=== PATIENT | male | born 1980 | race Caucasian/White ===

== ENCOUNTER 2017-07-11 11:25 | Emergency (ER) | payer MEDICARE, MEDICAID ==
[~2017-07-11] VITALS: Ht 6038.7 cm; Wt 120.0 kg
[~2017-07-11 11:25] MED LIST: FENO135C3 PO; LAMO200T32 PO; LISI30TA39 PO; PRAV10TA38 PO; TRAZ-91 PO; VAL5T PO; ZIPR40CA2 PO; ZIPR80CA2 PO; [UNRECOGNIZED DRUG - CODE] PO
[2017-07-11 12:17] VITALS: BP 137/95
[2017-07-11] MEDS ORDERED: NEOM10DR45 OT (13:52)
== END 2017-07-11 14:00 | disposition home or self-care (01) ==
LOC: ER 11:26
DX: H72.91 Unspecified perforation of tympanic membrane, right ear (principal); E78.00 Pure hypercholesterolemia, unspecified; I10 Essential (primary) hypertension; F17.200 Nicotine dependence, unspecified, uncomplicated; Z79.899 Other long term (current) drug therapy
CPT/HCPCS: 99283

== ENCOUNTER 2018-07-16 10:42 | Emergency (ER) | payer MEDICARE, MEDICAID ==
[~2018-07-16] VITALS: Ht 182.9 cm; Wt 100.0 kg
[2018-07-16] MEDS ORDERED: haloperidol lactate 5mg/ml inj IM ONE (11:30)
[2018-07-16] MEDS ORDERED: LORazepam 2 mg/ml vial IM ONE (11:30)
[2018-07-16] MEDS ORDERED: diphenhydrAMINE 50 mg/ml inj IM ONE (11:30)
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
[2018-07-16 11:59] LABS: BASOPHILS % (AUTO) 0.3 % (0-1); EOSINOPHILS % (AUTO) 0.5 % (0-6); HEMATOCRIT 38.7 % (42.0-52.0); HEMOGLOBIN 13.4 g/dl (14.0-17.9); LYMPHOCYTES # (AUTO) 1.9 X10'3 (1.1-4.8); LYMPHOCYTES % (AUTO) 26.6 % (21-51); MEAN CORPUSCULAR HEMOGLOBIN 29.6 PG (27.0-31.0); MEAN CORPUSCULAR HGB CONC 34.6 g/dL (33.0-36.5); MEAN CORPUSCULAR VOLUME 85.5 FL (78-98); MEAN PLATELET VOLUME 7.4 FL (7.4-10.4); MONOCYTES # (AUTO) 0.4 X10'3 (0-0.9); NEUTROPHILS # (AUTO) 4.7 X10'3 (1.8-7.7); NEUTROPHILS % (AUTO) 66.6 % (42-75); PLATELET COUNT 187 X10'3 (140-440); RED BLOOD COUNT 4.53 X10'6 (4.70-6.10); RED CELL DISTRIBUTION WIDTH 13.3 % (11.5-14.5); WHITE BLOOD COUNT 7.1 X10'3 (4.5-11.0)
[2018-07-16 12:14] LABS: URINE AMPHETAMINE SCREEN NEGATIVE (Neg); URINE BARBITUATE SCREEN NEGATIVE (Neg); URINE BENZODIAZEPINES SCREEN NEGATIVE (Neg); URINE CANNABINOID SCREEN POSITIVE (Neg); URINE COCAINE SCREEN NEGATIVE (Neg); URINE METHADONE SCREEN NEGATIVE (Neg); URINE OPIATE SCREEN NEGATIVE (Neg); URINE PHENCYCLIDINE SCREEN NEGATIVE (Neg)
[2018-07-16 12:22] LABS: ALANINE AMINOTRANSFERASE 26 U/L (12-78); ALBUMIN 4.4 G/DL (3.4-5.0); ALBUMIN/GLOBULIN RATIO 1.5 (1.1-1.5); ALKALINE PHOSPHATASE 39 IU/L (46-116); ANION GAP 10 (8-16); ASPARTATE AMINO TRANSFERASE 20 U/L (10-37); BILIRUBIN,TOTAL 0.7 MG/DL (0.1-1.0); BLOOD UREA NITROGEN 9 MG/DL (7-18); CALCIUM 9.1 MG/DL (8.5-10.1); CHLORIDE 100 MMOL/L (99-107); CREATININE 0.82 MG/DL (0.60-1.10); ETHANOL < 0.010 GM/DL (0.0-0.010); GLUCOSE 138 MG/DL (70-104); POTASSIUM 3.7 MMOL/L (3.5-5.1); SODIUM 136 MMOL/L (135-145); TOTAL CARBON DIOXIDE 26.1 MMOL/L (24-32); TOTAL PROTEIN 7.3 G/DL (6.4-8.2); eGFR > 90 ML/MIN
--- NOTE | 2018-07-16 12:36 | NUR ---
PT'S PARENTS ARRIVE TO TALK TO DR SIBLEY AND RN. PT HAD BEEN PICKED UP EARLY THIS MORNING BY [facility] AND TAKEN TO [facility] ON A 5150 DUE TO NEIGHBORS CALLING THAT HE WAS HALF NAKED AND LAYING OUT ON THE STREETS. PER PARENTS HE HAS BEEN HAVING ERRATIC BEHAVIORS AND HAS MADE SUICIDAL STATEMENTS. PT HAS BEEN HOSPITALIZED IN THE PAST. THEY FEEL HIS IS A DANGER TO HIMSELF. THEY DO HAVE POA.
--- NOTE | 2018-07-16 12:41 | NUR ---
PER PTS MOM HE HAS ALREADY HAD HIS MORNING MEDICATIONS.
[2018-07-16] MEDS ORDERED: ATOR20TA PO (12:55)
[2018-07-16] MEDS ORDERED: LAMO25TA94 PO (13:11)
[2018-07-16] MEDS ORDERED: GABA-530 PO (13:11)
[2018-07-16] MEDS ORDERED: GABA600T13 PO (13:11)
[2018-07-16] MEDS ORDERED: VARE0.5T PO (13:11)
[2018-07-16] MEDS ORDERED: CARI6CAP PO (13:11)
[2018-07-16] MEDS ORDERED: ATI0.5T PO (13:11)
[2018-07-16] MEDS ORDERED: LISI-600 PO (13:11)
[2018-07-16] MEDS ORDERED: BENZ1TAB7 PO (13:11)
[2018-07-16] MEDS ORDERED: LAMO100T2 PO (13:11)
[2018-07-16] MEDS ORDERED: FENO135C PO (13:11)
[2018-07-16] MEDS ORDERED: BUPR1FIL17 SL (13:11)
[2018-07-16] MEDS ORDERED: DULO-31 PO (13:11)
--- NOTE | 2018-07-16 14:11 | NUR ---
PACKET FAXED TO [facility]
--- NOTE | 2018-07-16 15:54 | NUR ---
JESSICA FROM [facility] HAS PLACED PT ON A 5150. PER JESSICA SHE HAS INFORMED HIM AND HE IS AWARE THAT HE WILL BE STAYING. PT HAS BEEN COOPERATIVE.
--- NOTE | 2018-07-16 20:00 | NUR ---
The patient has been sleeping on his bed. He awakened briefly for an assessment. He currently denies being suicidal. He denies significant drug or ETOH use. He stated he lives with a pet care worker, Roxanne and feels comfortable living there. He stated that currently is mood is "good" He stated that he has noticed some mood changes during the day but was not more specific. Per his parents his behavior has been erratic and he has been making suicidal statements but he denies that currently.
[2018-07-16] MEDS: varenicline tartrate 0.5mg tablet PO SCH (20:43)
[2018-07-16] MEDS: benztropine 1mg tablet PO SCH (20:43)
[2018-07-16] MEDS: buprenorphine/naloxone 2-0.5mg sublingual tablet SL SCH (20:43)
[2018-07-16] MEDS: gabapentin 300mg capsule PO SCH (20:43)
[2018-07-16] MEDS: lamoTRIgine 100mg tablet PO SCH (20:43)
--- NOTE | 2018-07-16 21:19 | NUR ---
Patients contacted and they brought in his home medication, Vraylar. The medication was sent to pharmacy for relabeling.
[2018-07-16] MEDS: CARIPRAZINE HYDROCHLORIDE 6 MG PO SCH (22:00)
--- NOTE | 2018-07-16 22:05 | NUR ---
The patient is resting on his bed. He was up briefly to use the restroom.
--- NOTE | 2018-07-17 00:47 | NUR ---
The patient appears to be sleeping
--- NOTE | 2018-07-17 04:27 | NUR ---
The patient appears to be asleep at this time.
--- NOTE | 2018-07-17 05:22 | NUR ---
The patient appears to be sleeping
[2018-07-17] MEDS: varenicline tartrate 0.5mg tablet PO SCH ×2 (08:00→20:00)
[2018-07-17] MEDS: lamoTRIgine 25mg tablet PO SCH (08:16)
[2018-07-17] MEDS: atorvastatin 20mg tablet PO SCH (08:18)
[2018-07-17] MEDS: lisinopril 20mg tablet PO SCH (08:18)
[2018-07-17] MEDS: fenofibrate 145mg tablet PO SCH (08:18)
[2018-07-17] MEDS: duloxetine 30mg CAPSULE.DR PO SCH (08:18)
[2018-07-17] MEDS: buprenorphine/naloxone 2-0.5mg sublingual tablet SL SCH ×2 (08:19→20:40)
[2018-07-17] MEDS: benztropine 1mg tablet PO SCH ×2 (08:19→20:40)
[2018-07-17] MEDS: gabapentin 100mg capsule PO SCH (08:19)
--- NOTE | 2018-07-17 10:00 | NUR ---
Patient lying in bed, eyes closed.
--- NOTE | 2018-07-17 10:30 | NUR ---
Patient up to restroom.
[2018-07-17] MEDS: LORazepam 0.5 MG tablet PO PRN (12:51)
--- NOTE | 2018-07-17 13:00 | NUR ---
Patient sitting up in bed eating lunch
--- NOTE | 2018-07-17 15:00 | NUR ---
Patient lying in bed with eyes closed.
--- NOTE | 2018-07-17 16:36 | NUR ---
Mother of eder here for a visit, she stated that a patient requested sunglasses but was educated that he could not have them here.
[2018-07-17] MEDS: lamoTRIgine 100mg tablet PO SCH (20:39)
[2018-07-17] MEDS: gabapentin 300mg capsule PO SCH (20:40)
[2018-07-17] MEDS: CARIPRAZINE HYDROCHLORIDE 6 MG PO SCH (20:40)
--- NOTE | 2018-07-18 01:14 | NUR ---
Pt asleep on his back with no signs of distress. Will continue to monitor.
--- NOTE | 2018-07-18 06:56 | NUR ---
Pt. awake, questions re: plan. Informed pt. that he was on 07/16, and today is 07/18, so there is one more day on his hold. No determinations regarding placement have been made. Requesting coffee.
[2018-07-18] MEDS: lamoTRIgine 25mg tablet PO SCH (07:46)
[2018-07-18] MEDS: gabapentin 100mg capsule PO SCH (07:48)
[2018-07-18] MEDS: duloxetine 30mg CAPSULE.DR PO SCH (07:48)
[2018-07-18] MEDS: atorvastatin 20mg tablet PO SCH (07:48)
[2018-07-18] MEDS: benztropine 1mg tablet PO SCH (07:48)
[2018-07-18] MEDS: lisinopril 20mg tablet PO SCH (07:48)
[2018-07-18] MEDS: fenofibrate 145mg tablet PO SCH (07:49)
[2018-07-18] MEDS: buprenorphine/naloxone 2-0.5mg sublingual tablet SL SCH (07:49)
[2018-07-18] MEDS: varenicline tartrate 0.5mg tablet PO SCH (07:53)
--- NOTE | 2018-07-18 08:54 | NUR ---
Patient's father called and wanted to know what plan is for son when 5150 is up. Informed him that [facility] would be determining placement options. Father wants to know about Dr. Cardenas coming down to ER because he is a private pt. of Dr. Cardenas. Informed that Dr. Cardenas only sees pts at [facility], and [facility].
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
--- NOTE | 2018-07-18 13:15 | NUR ---
April from [facility] in [place] called for a preliminary nurse to nurse. She will present to and call back.
[2018-07-18] MEDS: LORazepam 0.5 MG tablet PO PRN (13:17)
--- NOTE | 2018-07-18 14:35 | NUR ---
Patient has been accepted to [facility], nurse to nurse given to ELVIA Augustin. [facility] will call back with transport details.
--- NOTE | 2018-07-18 14:55 | NUR ---
Content Administrator from [facility] will be here at approx. 16:00.
--- NOTE | 2018-07-18 15:19 | NUR ---
Mother and father at bedside.
[2018-07-18] MEDS ORDERED: LORazepam 1 MG tablet PO ONE (15:30)
--- NOTE | 2018-07-18 15:48 | NUR ---
Pt. requesting additional medication due to anxiety/agitation. Ativan 2 mg p.o. given prior to transport.
[2018-07-18 16:42] VITALS: BP 114/76
== END 2018-07-18 16:37 ==
LOC: ER 10:42
DX: F31.9 Bipolar disorder, unspecified (principal); F41.9 Anxiety disorder, unspecified; F20.9 Schizophrenia, unspecified; I10 Essential (primary) hypertension; E78.00 Pure hypercholesterolemia, unspecified; F17.200 Nicotine dependence, unspecified, uncomplicated; F12.90 Cannabis use, unspecified, uncomplicated; Z88.1 Allergy status to other antibiotic agents
CPT/HCPCS: 36415; 80053; 80305; 80320; 85025; 99285

== ENCOUNTER 2018-08-01 15:07 | Emergency (ER) | payer MEDICARE, MEDICAID ==
[~2018-08-01] VITALS: Ht 185.4 cm; Wt 98.6 kg
[~2018-08-01 15:07] MED LIST changes: +ATI0.5T PO; +ATOR20TA PO; +BENZ1TAB7 PO; +BUPR1FIL17 SL; +CARI6CAP PO; +DULO-31 PO; +FENO135C PO; -FENO135C3 PO; +GABA-530 PO; +GABA600T13 PO; +LAMO100T2 PO; -LAMO200T32 PO; +LAMO25TA94 PO; +LISI-600 PO; -LISI30TA39 PO; -PRAV10TA38 PO; -TRAZ-91 PO; -VAL5T PO; +VARE0.5T PO; -ZIPR40CA2 PO; -ZIPR80CA2 PO; -[UNRECOGNIZED DRUG - CODE] PO
--- NOTE | 2018-08-01 15:58 | NUR ---
Trudi Monreal (Mk' mother) [phone]
[2018-08-01 16:15] LABS: URINE AMPHETAMINE SCREEN NEGATIVE (Neg); URINE BARBITUATE SCREEN NEGATIVE (Neg); URINE BENZODIAZEPINES SCREEN NEGATIVE (Neg); URINE CANNABINOID SCREEN POSITIVE (Neg); URINE COCAINE SCREEN NEGATIVE (Neg); URINE METHADONE SCREEN NEGATIVE (Neg); URINE OPIATE SCREEN NEGATIVE (Neg); URINE PHENCYCLIDINE SCREEN NEGATIVE (Neg)
[2018-08-01 16:16] LABS: BASOPHILS % (AUTO) 0.4 % (0-1); EOSINOPHILS # (AUTO) 0.1 X10'3 (0-0.9); EOSINOPHILS % (AUTO) 1.4 % (0-6); HEMATOCRIT 39.2 % (42.0-52.0); HEMOGLOBIN 13.4 g/dl (14.0-17.9); LYMPHOCYTES # (AUTO) 3.2 X10'3 (1.1-4.8); LYMPHOCYTES % (AUTO) 34.9 % (21-51); MEAN CORPUSCULAR HEMOGLOBIN 29.4 PG (27.0-31.0); MEAN CORPUSCULAR HGB CONC 34.3 g/dL (33.0-36.5); MEAN CORPUSCULAR VOLUME 85.7 FL (78-98); MONOCYTES # (AUTO) 0.6 X10'3 (0-0.9); MONOCYTES % (AUTO) 6.1 % (2-12); NEUTROPHILS # (AUTO) 5.3 X10'3 (1.8-7.7); NEUTROPHILS % (AUTO) 57.2 % (42-75); PLATELET COUNT 205 X10'3 (140-440); RED BLOOD COUNT 4.57 X10'6 (4.70-6.10); RED CELL DISTRIBUTION WIDTH 13.1 % (11.5-14.5); WHITE BLOOD COUNT 9.2 X10'3 (4.5-11.0)
[2018-08-01 17:01] LABS: ALANINE AMINOTRANSFERASE 35 U/L (12-78); ALBUMIN 4.2 G/DL (3.4-5.0); ALBUMIN/GLOBULIN RATIO 1.4 (1.1-1.5); ALKALINE PHOSPHATASE 46 IU/L (46-116); ANION GAP 6 (8-16); ASPARTATE AMINO TRANSFERASE 14 U/L (10-37); BILIRUBIN,TOTAL 0.3 MG/DL (0.1-1.0); BLOOD UREA NITROGEN 15 MG/DL (7-18); BUN/CREATININE RATIO 18.5 (5.4-32.0); CALCIUM 9.3 MG/DL (8.5-10.1); CHLORIDE 100 MMOL/L (99-107); CREATININE 0.81 MG/DL (0.60-1.10); ETHANOL < 0.010 GM/DL (0.0-0.010); GLUCOSE 112 MG/DL (70-104); SODIUM 134 MMOL/L (135-145); TOTAL CARBON DIOXIDE 28.4 MMOL/L (24-32); TOTAL PROTEIN 7.3 G/DL (6.4-8.2); eGFR > 90 ML/MIN
--- NOTE | 2018-08-01 17:09 | NUR ---
psychiatrist SHAINA Garcia made aware of patient, states he will see him tomorrow.
[2018-08-01] MEDS ORDERED: LURA120T PO (17:14)
[2018-08-01] MEDS: buprenorphine/naloxone 2-0.5mg sublingual tablet SL SCH (19:36)
[2018-08-01] MEDS ORDERED: NALOXONE HCL SL SCH (20:00)
[2018-08-01] MEDS ORDERED: [UNRECOGNIZED DRUG - OTHER] SL SCH (20:00)
[2018-08-01] MEDS ORDERED: BUPRENORPHINE HCL SL SCH (20:00)
[2018-08-01] MEDS ORDERED: Melatonin 3mg tablet PO SCH (21:00)
--- NOTE | 2018-08-01 21:07 | NUR ---
pt is sleeping, no s/s of distress.
--- NOTE | 2018-08-01 21:23 | NUR ---
pt reports being anxious and unable to sleep. consult with dr solis, verbal order for 3 mg melatonin.
[2018-08-01] MEDS: LORazepam 0.5 MG tablet PO PRN (21:29)
--- NOTE | 2018-08-01 21:57 | NUR ---
pt asked to use phone, but was informed that phone can be used between 8am and 8pm
--- NOTE | 2018-08-01 22:23 | NUR ---
pt is sleeping on back. no s/s of distress, will continue to monitor.
--- NOTE | 2018-08-02 00:13 | NUR ---
pt is sleeping. no s/s of distress, rr wnl.
--- NOTE | 2018-08-02 02:15 | NUR ---
pt appears to be asleep, lying on his back with arms folded. no s/s of distress noted, will continue to monitor.
[2018-08-02] MEDS ORDERED: nicotine 14mg patch - 24hr TD ONE (02:55)
--- NOTE | 2018-08-02 03:02 | NUR ---
pt requested a nicotine patch, reporting that he smokes approx 1/2-1 pack of cigarettes a day. consult with Dr Merino-verbal order for 14 mg nicotine patch one time.
--- NOTE | 2018-08-02 04:10 | NUR ---
pt lying in bed awake. no s/s of distress noted.
[2018-08-02 05:33] VITALS: BP_DIAS 68
--- NOTE | 2018-08-02 06:32 | NUR ---
Patient sleeping on right side. No restlessness observed. Continue to monitor.
[2018-08-02] MEDS ORDERED: lisinopril 20mg tablet PO SCH (08:00)
[2018-08-02] MEDS ORDERED: non-formulary drug (Lurasidone HCl (Latuda) 1 TAB) PO SCH (08:00)
[2018-08-02] MEDS ORDERED: atorvastatin 20mg tablet PO SCH (08:00)
[2018-08-02] MEDS ORDERED: non-formulary drug (Atorvastatin Calcium (Lipitor) 1 TAB) PO SCH (08:00)
[2018-08-02] MEDS ORDERED: lurasidone 60mg tablet PO SCH (08:00)
--- NOTE | 2018-08-02 08:05 | NUR ---
Patient eating breakfast. No distress observed. Continue to monitor.
[2018-08-02 08:18] VITALS: BP_SYST 104
[2018-08-02] MEDS: buprenorphine/naloxone 2-0.5mg sublingual tablet SL SCH (08:19)
--- NOTE | 2018-08-02 10:20 | NUR ---
Patient stating feeling a little anxious and requested his Ativan. Continue to monitor.
[2018-08-02] MEDS: LORazepam 0.5 MG tablet PO PRN (10:31)
--- NOTE | 2018-08-02 11:40 | NUR ---
Patient anxious and requesting a nicotine patch. Patient's parents at bedside. Continue to monitor.
[2018-08-02] MEDS ORDERED: nicotine 21mg patch - 24 hr TD ONE (11:45)
--- NOTE | 2018-08-02 12:00 | NUR ---
RN went to give patient his nicotine patch and patient refused because he said he was trying to sleep RN walked away and patient called RN back and stated he changed his mind. Patient is upset because he doesn't know why he is here. Patient earlier got agitated when RN asked why he was here and patient states his mother brought him in but he doesn't know why. Patient acting bizarre with his eyes wide open. RN gave patient his nicotine patch and recommended to patient to request RN to remove the patch tonight since patient stated he gets nightmares with the patch. Patient verbalized understanding. RN will also remind the nurse to remove the patch. Continue to monitor.
--- NOTE | 2018-08-02 14:05 | NUR ---
Patient sleeping. No distress observed. Continue to monitor.
--- NOTE | 2018-08-02 15:59 | NUR ---
Patient resting on right side. No distress observed. Continue to monitor.
== END 2018-08-02 16:40 ==
LOC: ER 15:08
DX: F20.9 Schizophrenia, unspecified (principal); F31.9 Bipolar disorder, unspecified; I10 Essential (primary) hypertension; E78.00 Pure hypercholesterolemia, unspecified; F12.90 Cannabis use, unspecified, uncomplicated; Z88.1 Allergy status to other antibiotic agents
CPT/HCPCS: 36415; 80053; 80305; 80320; 85025; 99285

== ENCOUNTER 2018-08-27 21:49 | Emergency (ER) | payer MEDICARE, MEDICAID ==
[~2018-08-27] VITALS: Ht 287 cm; Wt 109.0 kg
[~2018-08-27 21:49] MED LIST changes: -ATI0.5T PO; -BENZ1TAB7 PO; -CARI6CAP PO; +CLON0.5T12 PO; -DULO-31 PO; -FENO135C PO; -GABA-530 PO; -GABA600T13 PO; +HYDR-3686 PO; -LAMO100T2 PO; -LAMO25TA94 PO; +NICO-668 MM; +OLAN20TA34 PO; +OLAN5TAB26 PO; +OLAN7.5T9 PO; +TEMA15CA PO; -VARE0.5T PO
--- NOTE | 2018-08-27 22:14 | NUR ---
PARENTS, MAGI AND LUDWIG BARRERA, , PT TOOK ZYPREXA 20MG, SEROQUEL 300MG, TEGRETOL 100MG AND TEMAZEPAM 15MG AT APPROX 2030, PARENTS WENT HOME AND WILL RETURN IN AM
--- NOTE | 2018-08-27 23:04 | NUR ---
Patient was brought from ED by Ariana GAN and . He wasn triaged without difficult. He answered questions appropriately and cooperates. He is now resting and shows no sign of distress and states that he is feeling comfortable now.
[2018-08-27 23:17] LABS: URINE AMPHETAMINE SCREEN NEGATIVE (Neg); URINE BARBITUATE SCREEN NEGATIVE (Neg); URINE BENZODIAZEPINES SCREEN NEGATIVE (Neg); URINE CANNABINOID SCREEN NEGATIVE (Neg); URINE COCAINE SCREEN NEGATIVE (Neg); URINE METHADONE SCREEN NEGATIVE (Neg); URINE OPIATE SCREEN NEGATIVE (Neg); URINE PHENCYCLIDINE SCREEN NEGATIVE (Neg)
[2018-08-27 23:22] LABS: BASOPHILS % (AUTO) 0.4 % (0-1); EOSINOPHILS # (AUTO) 0.3 X10'3 (0-0.9); EOSINOPHILS % (AUTO) 5.1 % (0-6); HEMOGLOBIN 10.8 g/dl (14.0-17.9); LYMPHOCYTES # (AUTO) 2.6 X10'3 (1.1-4.8); LYMPHOCYTES % (AUTO) 41.9 % (21-51); MEAN CORPUSCULAR HEMOGLOBIN 29.6 PG (27.0-31.0); MEAN CORPUSCULAR HGB CONC 34.8 g/dL (33.0-36.5); MEAN CORPUSCULAR VOLUME 85.2 FL (78-98); MEAN PLATELET VOLUME 7.4 FL (7.4-10.4); MONOCYTES # (AUTO) 0.5 X10'3 (0-0.9); MONOCYTES % (AUTO) 7.9 % (2-12); NEUTROPHILS # (AUTO) 2.8 X10'3 (1.8-7.7); NEUTROPHILS % (AUTO) 44.7 % (42-75); PLATELET COUNT 181 X10'3 (140-440); RED BLOOD COUNT 3.64 X10'6 (4.70-6.10); RED CELL DISTRIBUTION WIDTH 12.8 % (11.5-14.5); WHITE BLOOD COUNT 6.2 X10'3 (4.5-11.0)
[2018-08-27 23:43] LABS: ALANINE AMINOTRANSFERASE 42 U/L (12-78); ALBUMIN 3.2 G/DL (3.4-5.0); ALBUMIN/GLOBULIN RATIO 1.1 (1.1-1.5); ALKALINE PHOSPHATASE 46 IU/L (46-116); ANION GAP 7 (8-16); ASPARTATE AMINO TRANSFERASE 19 U/L (10-37); BILIRUBIN,TOTAL 0.2 MG/DL (0.1-1.0); BLOOD UREA NITROGEN 16 MG/DL (7-18); BUN/CREATININE RATIO 22.2 (5.4-32.0); CALCIUM 8.5 MG/DL (8.5-10.1); CHLORIDE 103 MMOL/L (99-107); CREATININE 0.72 MG/DL (0.60-1.10); ETHANOL < 0.010 GM/DL (0.0-0.010); GLUCOSE 120 MG/DL (70-104); POTASSIUM 3.9 MMOL/L (3.5-5.1); SODIUM 138 MMOL/L (135-145); eGFR > 90 ML/MIN
--- NOTE | 2018-08-28 00:36 | NUR ---
Packet faxed to [facility]. Unable to confirm receipt of packet as [id number] hours.
--- NOTE | 2018-08-28 00:37 | NUR ---
Pt's belongings documented and placed in locked cabinet in ambulance bay.
--- NOTE | 2018-08-28 01:03 | NUR ---
Patient is resting.
--- NOTE | 2018-08-28 03:03 | NUR ---
Patient is resting well and there is no sign of change in condition.
--- NOTE | 2018-08-28 05:05 | NUR ---
Patient just went back to sleep . He woke up to void and there is no change in condition.
[2018-08-28] MEDS ORDERED: hydrOXYzine 25 MG tablet PO PRN (06:05)
[2018-08-28] MEDS ORDERED: temazepam 15mg capsule PO PRN (06:10)
--- NOTE | 2018-08-28 06:30 | NUR ---
Asleep upon change of shift observation. Undisturbed at this time. Color and breathing WNL.
[2018-08-28] MEDS ORDERED: OLANZapine 2.5MG tablet PO SCH (08:00)
[2018-08-28] MEDS ORDERED: clonazePAM 0.5mg tablet PO SCH (08:00)
[2018-08-28] MEDS ORDERED: buprenorphine/naloxone 2-0.5mg sublingual tablet SL SCH (08:00)
[2018-08-28] MEDS ORDERED: lisinopril 20mg tablet PO SCH (08:00)
[2018-08-28] MEDS ORDERED: nicotine 7mg patch - 24hr TD SCH (08:00)
[2018-08-28] MEDS ORDERED: atorvastatin 20mg tablet PO SCH (08:00)
--- NOTE | 2018-08-28 08:30 | NUR ---
Awakened for AM meds and breakfast. Patient presents as guarded. States only that "I don't need to be here. I want to go home."
--- NOTE | 2018-08-28 10:14 | NUR ---
patient restless most of the mornig, up and down out of bed and restroom.
--- NOTE | 2018-08-28 11:27 | NUR ---
patient cont' to be agitated looking to go home
--- NOTE | 2018-08-28 11:30 | NUR ---
Erica Jones from [facility] at bedside to evaluate patient for possible 5150 criteria.
--- NOTE | 2018-08-28 12:30 | NUR ---
Patient does not meet 5150 criteria. Free to go home per Erica Jones. Patient used phone to call mother.
--- NOTE | 2018-08-28 13:10 | NUR ---
Discharge Note: Mother here. Patient discharged to home with all his personal possessions. Will follow-up with DR. Cardenas the psychiatrist this coming . Ambulated out of ER accompanied by mother.
[2018-08-28 13:32] VITALS: BP 105/56
[2018-08-28] MEDS ORDERED: OLANZapine 5mg rapidly disint. tablet PO SCH (21:00)
== END 2018-08-28 13:10 | disposition home or self-care (01) ==
LOC: ER 21:49
DX: F29 Unspecified psychosis not due to a substance or known physiological condition (principal); I10 Essential (primary) hypertension; E78.00 Pure hypercholesterolemia, unspecified; F41.9 Anxiety disorder, unspecified; F31.9 Bipolar disorder, unspecified; F12.90 Cannabis use, unspecified, uncomplicated; F20.9 Schizophrenia, unspecified; Z98.890 Other specified postprocedural states; Z88.1 Allergy status to other antibiotic agents; Z79.899 Other long term (current) drug therapy
CPT/HCPCS: 36415; 80053; 80305; 80320; 85025; 99284

== ENCOUNTER 2018-10-29 13:22 | Emergency (ER) | payer MEDICARE, MEDICAID ==
[~2018-10-29] VITALS: Ht 182.9 cm; Wt 109.1 kg
[2018-10-29 14:22] LABS: CLARITY,URINE CLEAR (Clear); COLOR,URINE YELLOW (Yellow); GLUCOSE, URINE NEGATIVE (Neg); KETONES,URINE NEGATIVE (Neg); LEUKOCYTE ESTERASE ,URINE NEGATIVE (Neg); NITRITES, URINE NEGATIVE (Neg); OCCULT BLOOD,URINE NEGATIVE (Neg); PH,URINE 6.5 (4.8-8.0); PROTEIN,URINE NEGATIVE (Neg)
[2018-10-29 14:25] LABS: UA COLLECTION TYPE CLN CATCH MIDSTREAM
[2018-10-29 14:34] LABS: URINE AMPHETAMINE SCREEN NEGATIVE (Neg); URINE BARBITUATE SCREEN NEGATIVE (Neg); URINE BENZODIAZEPINES SCREEN NEGATIVE (Neg); URINE CANNABINOID SCREEN POSITIVE (Neg); URINE COCAINE SCREEN NEGATIVE (Neg); URINE METHADONE SCREEN NEGATIVE (Neg); URINE OPIATE SCREEN NEGATIVE (Neg); URINE PHENCYCLIDINE SCREEN NEGATIVE (Neg)
[2018-10-29] MEDS ORDERED: CARB200T PO (14:37)
[2018-10-29] MEDS ORDERED: RISP2TAB97 PO (14:37)
[2018-10-29] MEDS ORDERED: CLON-527 PO (14:37)
[2018-10-29] MEDS ORDERED: TEMA15CA PO (14:37)
[2018-10-29] MEDS ORDERED: HYDR-3686 PO (14:37)
[2018-10-29 15:05] LABS: BASOPHILS % (AUTO) 0.2 % (0-1); EOSINOPHILS # (AUTO) 0.2 X10'3 (0-0.9); HEMATOCRIT 40.6 % (42.0-52.0); HEMOGLOBIN 13.9 g/dl (14.0-17.9); LYMPHOCYTES # (AUTO) 2.4 X10'3 (1.1-4.8); MEAN CORPUSCULAR HGB CONC 34.3 g/dL (33.0-36.5); MEAN CORPUSCULAR VOLUME 87.6 FL (78-98); MEAN PLATELET VOLUME 8.2 FL (7.4-10.4); MONOCYTES # (AUTO) 0.5 X10'3 (0-0.9); MONOCYTES % (AUTO) 6.9 % (2-12); NEUTROPHILS # (AUTO) 4.8 X10'3 (1.8-7.7); NEUTROPHILS % (AUTO) 60.9 % (42-75); PLATELET COUNT 159 X10'3 (140-440); RED BLOOD COUNT 4.63 X10'6 (4.70-6.10); WHITE BLOOD COUNT 7.9 X10'3 (4.5-11.0)
[2018-10-29 15:15] LABS: ALANINE AMINOTRANSFERASE 46 U/L (12-78); ALBUMIN 4.1 G/DL (3.4-5.0); ALBUMIN/GLOBULIN RATIO 1.3 (1.1-1.5); ALKALINE PHOSPHATASE 55 IU/L (46-116); ANION GAP 10 (8-16); ASPARTATE AMINO TRANSFERASE 48 U/L (10-37); BILIRUBIN,TOTAL 0.3 MG/DL (0.1-1.0); BLOOD UREA NITROGEN 16 MG/DL (7-18); BUN/CREATININE RATIO 25.4 (5.4-32.0); CALCIUM 8.6 MG/DL (8.5-10.1); CHLORIDE 105 MMOL/L (99-107); CREATININE 0.63 MG/DL (0.60-1.10); GLUCOSE 83 MG/DL (70-104); POTASSIUM 3.7 MMOL/L (3.5-5.1); SODIUM 141 MMOL/L (135-145); TOTAL CARBON DIOXIDE 26.1 MMOL/L (24-32); TOTAL PROTEIN 7.2 G/DL (6.4-8.2); eGFR > 90 ML/MIN
[2018-10-29] MEDS: LORazepam 1 MG tablet PO PRN (15:16)
[2018-10-29 15:29] LABS: ETHANOL < 0.010 GM/DL (0.0-0.010)
--- NOTE | 2018-10-29 15:41 | NUR ---
PT MEDICAL CLEARED. PACKET FAXED TO [facility].
--- NOTE | 2018-10-29 15:48 | NUR ---
[id number] Tunde Garcia PA here to evaluate pt for mental health issues. Pt having anxiety at that time. Tunde Garcia gave prn order for pt to have ativan.
[2018-10-29] MEDS ORDERED: temazepam 15mg capsule PO PRN (16:30)
[2018-10-29] MEDS ORDERED: nicotine 21mg patch - 24 hr TD ONE (17:25)
[2018-10-29] MEDS: buprenorphine/naloxone 2-0.5mg sublingual tablet SL SCH (20:19)
[2018-10-29] MEDS: carBAMazepine 100mg chewable tablet PO SCH (20:19)
[2018-10-29] MEDS: risperiDONE 2mg tablet PO SCH (20:19)
--- NOTE | 2018-10-29 21:50 | NUR ---
Nicotine patch removed.
[2018-10-30] MEDS: risperiDONE 2mg tablet PO SCH ×2 (07:09→20:35)
--- NOTE | 2018-10-30 07:10 | NUR ---
Patient requested his medications for this morning. All medications given. Nicotine patch applied.
--- NOTE | 2018-10-30 07:11 | NUR ---
Patient has been up to use the restroom.
[2018-10-30] MEDS: lisinopril 20mg tablet PO SCH (07:12)
[2018-10-30] MEDS: nicotine 21mg patch - 24 hr TD SCH (07:12)
[2018-10-30] MEDS: atorvastatin 20mg tablet PO SCH (07:12)
[2018-10-30] MEDS: clonazePAM 1mg tablet PO SCH (07:12)
[2018-10-30] MEDS: buprenorphine/naloxone 2-0.5mg sublingual tablet SL SCH ×2 (07:23→20:36)
--- NOTE | 2018-10-30 11:25 | NUR ---
patients is awake, sitting quiety on the bed.
[2018-10-30] MEDS: hydrOXYzine 25 MG tablet PO PRN (11:33)
--- NOTE | 2018-10-30 12:21 | NUR ---
patient is laying on his right side, he appears to be asleep.
--- NOTE | 2018-10-30 12:23 | NUR ---
patient is laying on his right side, he appears to be sleeping.
--- NOTE | 2018-10-30 12:23 | NUR ---
left medications from home, documented and sent to pharmacy Addendum: 10/30/18 at 1223 by LEONILA wrong patient Void entry
--- NOTE | 2018-10-30 12:58 | NUR ---
Patient is sitting up in bed staring at the nurses station.
--- NOTE | 2018-10-30 13:02 | NUR ---
patient approached the nurses desk and asked when lunch will arrive. He was advised that it will arrive soon.
--- NOTE | 2018-10-30 13:18 | NUR ---
Patient got up to use the restroom and returned to his room to eat lunch.
--- NOTE | 2018-10-30 13:55 | NUR ---
pt on phone with his mother asking for a jacket because he's cold . jonnie informed pt not allowed personal belongings and she provided him a warm blanket. pt was ok with that
--- NOTE | 2018-10-30 18:33 | NUR ---
Patient resting cofortably in bed. Patient denies SI/HI at this time. When asked the reason for his visit he states that, "I just had a bad reaction to my medicine."
--- NOTE | 2018-10-30 18:34 | NUR ---
Patient updated on POC.
--- NOTE | 2018-10-30 18:41 | NUR ---
Patient states that he has removed his nicotine patch. Patient pulls patch out of pocket which is balled up. Patch placed in med waste bin. Original patch placed 24 hours ago was removed when the most recent one was placed by day RN.
--- NOTE | 2018-10-30 19:35 | NUR ---
Patient up to restroom and back to bed.
[2018-10-30] MEDS: carBAMazepine 100mg chewable tablet PO SCH (20:36)
[2018-10-30] MEDS: LORazepam 1 MG tablet PO PRN (20:39)
--- NOTE | 2018-10-30 20:50 | NUR ---
Patient medicated and he went back to sleeping in a supine position.
--- NOTE | 2018-10-30 22:59 | NUR ---
Patient sleeping supine with even, unlabored breathing.
--- NOTE | 2018-10-31 00:45 | NUR ---
Patient continues to sleep.
[2018-10-31] MEDS: hydrOXYzine 25 MG tablet PO PRN ×3 (01:30→12:38)
[2018-10-31] MEDS: LORazepam 1 MG tablet PO PRN ×3 (01:30→12:38)
--- NOTE | 2018-10-31 01:31 | NUR ---
Patient is up restless and wandering about. Patient states that he feels anxious and needs to move.
--- NOTE | 2018-10-31 03:28 | NUR ---
Patient is sleeping in a supine position and snoring loudly.
--- NOTE | 2018-10-31 05:43 | NUR ---
Pt up to bathroom. Performed morning toilet. Pt returned to bed; warm blanket given for comfort.
--- NOTE | 2018-10-31 07:00 | NUR ---
Pt sitting up in bed. Calm and cooperative.
[2018-10-31] MEDS: risperiDONE 2mg tablet PO SCH (07:20)
[2018-10-31] MEDS: clonazePAM 1mg tablet PO SCH (07:20)
[2018-10-31] MEDS: lisinopril 20mg tablet PO SCH (07:20)
[2018-10-31] MEDS: atorvastatin 20mg tablet PO SCH (07:20)
[2018-10-31] MEDS: buprenorphine/naloxone 2-0.5mg sublingual tablet SL SCH (07:20)
[2018-10-31] MEDS: nicotine 21mg patch - 24 hr TD SCH (07:21)
--- NOTE | 2018-10-31 09:00 | NUR ---
Took AM meds. Ambulating around unit.
--- NOTE | 2018-10-31 11:00 | NUR ---
Nurse to nurse given to Li at [facility].
[2018-10-31 13:45] VITALS: BP 103/53
== END 2018-10-31 13:48 ==
LOC: ER 13:23
DX: F20.9 Schizophrenia, unspecified (principal); E78.00 Pure hypercholesterolemia, unspecified; I10 Essential (primary) hypertension; F41.9 Anxiety disorder, unspecified; F31.9 Bipolar disorder, unspecified; F17.200 Nicotine dependence, unspecified, uncomplicated; F10.10 Alcohol abuse, uncomplicated; F12.90 Cannabis use, unspecified, uncomplicated; Z88.1 Allergy status to other antibiotic agents; Z79.899 Other long term (current) drug therapy; Y90.0 Blood alcohol level of less than 20 mg/100 ml
CPT/HCPCS: 36415; 80053; 80305; 80320; 81003; 84443; 85025; 99285; Q0177; Z7610

== ENCOUNTER 2018-11-13 13:03 | Emergency (ER) | payer MEDICARE, MEDICAID ==
[~2018-11-13] VITALS: Ht 185.4 cm; Wt 113.6 kg
[~2018-11-13 13:03] MED LIST changes: +CARB200T PO; +CLON-527 PO; -CLON0.5T12 PO; -NICO-668 MM; -OLAN20TA34 PO; -OLAN5TAB26 PO; -OLAN7.5T9 PO; +RISP2TAB97 PO
[2018-11-13] MEDS ORDERED: OLANZapine 5mg rapidly disint. tablet PO ONE (13:40)
[2018-11-13] MEDS ORDERED: diphenhydrAMINE 25mg capsule PO ONE (13:40)
[2018-11-13] MEDS ORDERED: LORazepam 1 MG tablet PO ONE ×2 (13:40→16:25)
--- NOTE | 2018-11-13 13:41 | NUR ---
pt came in by [employer] . michelle RN gave po ativan, benadryl and zeprexa
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
[2018-11-13 14:20] LABS: BASOPHILS % (AUTO) 0.1 % (0-1); EOSINOPHILS # (AUTO) 0.1 X10'3 (0-0.9); EOSINOPHILS % (AUTO) 0.8 % (0-6); HEMATOCRIT 40.9 % (42.0-52.0); HEMOGLOBIN 13.8 g/dl (14.0-17.9); LYMPHOCYTES # (AUTO) 1.8 X10'3 (1.1-4.8); LYMPHOCYTES % (AUTO) 16.4 % (21-51); MEAN CORPUSCULAR HEMOGLOBIN 28.8 PG (27.0-31.0); MEAN CORPUSCULAR HGB CONC 33.7 g/dL (33.0-36.5); MEAN CORPUSCULAR VOLUME 85.5 FL (78-98); MEAN PLATELET VOLUME 7.2 FL (7.4-10.4); MONOCYTES # (AUTO) 0.6 X10'3 (0-0.9); MONOCYTES % (AUTO) 5.4 % (2-12); NEUTROPHILS # (AUTO) 8.6 X10'3 (1.8-7.7); NEUTROPHILS % (AUTO) 77.3 % (42-75); PLATELET COUNT 181 X10'3 (140-440); RED BLOOD COUNT 4.78 X10'6 (4.70-6.10); RED CELL DISTRIBUTION WIDTH 12.7 % (11.5-14.5); WHITE BLOOD COUNT 11.1 X10'3 (4.5-11.0)
--- NOTE | 2018-11-13 14:30 | NUR ---
we obatianed urine on pt and was sentg to lab
[2018-11-13 14:31] LABS: ALANINE AMINOTRANSFERASE 37 U/L (12-78); ALBUMIN 4.1 G/DL (3.4-5.0); ALBUMIN/GLOBULIN RATIO 1.2 (1.1-1.5); ALKALINE PHOSPHATASE 64 IU/L (46-116); ANION GAP 9 (8-16); ASPARTATE AMINO TRANSFERASE 19 U/L (10-37); BILIRUBIN,TOTAL 0.4 MG/DL (0.1-1.0); BLOOD UREA NITROGEN 13 MG/DL (7-18); BUN/CREATININE RATIO 16.3 (5.4-32.0); CHLORIDE 104 MMOL/L (99-107); GLUCOSE 87 MG/DL (70-104); POTASSIUM 4.3 MMOL/L (3.5-5.1); SODIUM 141 MMOL/L (135-145); TOTAL CARBON DIOXIDE 28.2 MMOL/L (24-32); TOTAL PROTEIN 7.5 G/DL (6.4-8.2); eGFR > 90 ML/MIN
[2018-11-13 14:32] LABS: ETHANOL < 0.010 GM/DL (0.0-0.010)
[2018-11-13 15:08] LABS: URINE AMPHETAMINE SCREEN NEGATIVE (Neg); URINE BARBITUATE SCREEN NEGATIVE (Neg); URINE BENZODIAZEPINES SCREEN NEGATIVE (Neg); URINE CANNABINOID SCREEN POSITIVE (Neg); URINE COCAINE SCREEN NEGATIVE (Neg); URINE METHADONE SCREEN NEGATIVE (Neg); URINE OPIATE SCREEN NEGATIVE (Neg); URINE PHENCYCLIDINE SCREEN NEGATIVE (Neg)
--- NOTE | 2018-11-13 15:15 | NUR ---
pt is still sleeping on left side
--- NOTE | 2018-11-13 15:45 | NUR ---
pt is still sleeping. pt rolled on backside
--- NOTE | 2018-11-13 16:17 | NUR ---
pt just went to bathroom and is sitting up in bed
--- NOTE | 2018-11-13 16:31 | NUR ---
pt sleeping on left side and breathing and color are in normal limits
--- NOTE | 2018-11-13 16:34 | NUR ---
Patient sitting up in bed, stating he cannot sleep and "I need more medicine." Dr. Summers consulted. Order given for Ativan 2 mg. PO. Medication administered as ordered without event.
--- NOTE | 2018-11-13 17:00 | NUR ---
pt within line of sight of staff at all times
--- NOTE | 2018-11-13 17:43 | NUR ---
Sleeping soundly at this time. In no distress. Breathing and color WNL.
--- NOTE | 2018-11-13 20:16 | NUR ---
Father joyce Monroe [phone]
--- NOTE | 2018-11-13 23:06 | NUR ---
PT IS SLEEPING ON LEFT SIDE, NO S/S OF DISTRESS NOTED.
[2018-11-13] MEDS ORDERED: hydrOXYzine 25 MG tablet PO PRN (23:10)
[2018-11-13] MEDS ORDERED: temazepam 15mg capsule PO PRN (23:10)
--- NOTE | 2018-11-14 00:59 | NUR ---
PT IS SLEEPING, NO S/S OF DISTRESS NOTED. WILL CONTINUE TO MONITOR.
--- NOTE | 2018-11-14 03:50 | NUR ---
pt is snoring loudly. no s/s of distress noted.
--- NOTE | 2018-11-14 04:24 | NUR ---
pt is sleeping, snoring, rr unlabored, no s/s of distress.
--- NOTE | 2018-11-14 06:30 | NUR ---
Asleep upon change of shift observation. Color and breathing WNL. Undisturbed at this time.
--- NOTE | 2018-11-14 07:30 | NUR ---
Awakened self. Ambulated to the bathroom without event. Steady gait. Made no eye contact or conversation with staff at this time.
[2018-11-14] MEDS ORDERED: lisinopril 20mg tablet PO SCH (08:00)
[2018-11-14] MEDS ORDERED: risperiDONE 2mg tablet PO SCH (08:00)
[2018-11-14] MEDS ORDERED: clonazePAM 1mg tablet PO SCH (08:00)
[2018-11-14] MEDS ORDERED: atorvastatin 20mg tablet PO SCH (08:00)
--- NOTE | 2018-11-14 08:30 | NUR ---
Awake when presented with food tray. Ate 100% of his meal. Positive for auditory hallucinations. Asking for additional medication. Dr. Church consulted. Order given to discontinue the Risperdal and begin Zyprexa 10 mg PO in the am.
[2018-11-14] MEDS ORDERED: olanzapine 10mg tablet PO SCH (08:31)
--- NOTE | 2018-11-14 08:40 | NUR ---
Zyprexa 10 mg. PO administered as ordered.
[2018-11-14] MEDS: buprenorphine/naloxone 2-0.5mg sublingual tablet SL SCH ×2 (08:41→20:32)
--- NOTE | 2018-11-14 10:17 | NUR ---
breaking primary RN, pt is up to nurses station, requests phone, give phone, no s/s of distress observed
--- NOTE | 2018-11-14 10:30 | NUR ---
Napping at this time. Presents as comfortable. Breathing and color WNL.
[2018-11-14] MEDS ORDERED: NICOTINE POLACRILEX 4 MG LOZENGE BC PRN (10:45)
[2018-11-14] MEDS: NICOTINE POLACRILEX 2 MG LOZENGE BC PRN ×3 (11:26→20:33)
--- NOTE | 2018-11-14 12:50 | NUR ---
Awakened for lunch. Ate 100% of his meal. Up to the bathroom. Returned to bed and to sleep.
--- NOTE | 2018-11-14 15:00 | NUR ---
Mother and father here to visit. Visit by parents exacerbated patient, who accused father "of doing everything wrong and not caring about me." Patient asked that father and mother not visit him "right now." Stated he would call "only mother" if he wanted to talk with someone.
[2018-11-14] MEDS ORDERED: OLANZapine **IM** 10 mg inj. IM ONE (15:40)
[2018-11-14] MEDS ORDERED: LORazepam 2 mg/ml vial IM ONE (15:40)
--- NOTE | 2018-11-14 15:56 | NUR ---
Patient asked for "more medicine" to decrease agitation and increase ability to "feel better." Dr. Church consulted. Order given for Zyprexa 10 mg. IM/Ativan 1 mg. IM now. Medication administered without problem.
--- NOTE | 2018-11-14 16:00 | NUR ---
Call received from Geovani THURSTON on [facility] ([facility]). Patient has been accepted on that unit and will be brought up as soon as a bed is available.
--- NOTE | 2018-11-14 17:05 | NUR ---
Sleeping soundly at this time. Color and breathing WNL. In line of sight of staff at all times throughout shift.
[2018-11-14 18:02] VITALS: BP 103/57
[2018-11-14] MEDS ORDERED: carBAMazepine 100mg chewable tablet PO SCH (21:00)
[2018-11-14] MEDS ORDERED: OLANZapine 5mg rapidly disint. tablet PO SCH (21:00)
== END 2018-11-14 21:14 ==
LOC: ER 13:04
DX: F29 Unspecified psychosis not due to a substance or known physiological condition (principal); R45.851 Suicidal ideations; F79 Unspecified intellectual disabilities; E78.00 Pure hypercholesterolemia, unspecified; I10 Essential (primary) hypertension; E07.9 Disorder of thyroid, unspecified; F41.9 Anxiety disorder, unspecified; F31.9 Bipolar disorder, unspecified; F20.9 Schizophrenia, unspecified; F17.200 Nicotine dependence, unspecified, uncomplicated; F12.90 Cannabis use, unspecified, uncomplicated; Z88.1 Allergy status to other antibiotic agents; Z79.899 Other long term (current) drug therapy
CPT/HCPCS: 36415; 80053; 80305; 80320; 85025; 96372; 99285; J2060; J3490; Q0163

== ENCOUNTER 2018-11-14 20:35 | Inpatient (IN) | payer MEDICARE, MEDICAID ==
[~2018-11-14] VITALS: Ht 182.9 cm; Wt 108.3 kg
[2018-11-14] MEDS ORDERED: acetaminophen 325mg tablet PO PRN (20:50)
[2018-11-14] MEDS ORDERED: magnesium hydroxide 30ml (MOM) UD suspension PO PRN (20:50)
[2018-11-14] MEDS ORDERED: loperamide 2mg capsule PO PRN (20:50)
[2018-11-14] MEDS ORDERED: mag hydrox/Alum hydrox/simeth 30ml oral suspension PO PRN (20:50)
[2018-11-14] MEDS ORDERED: hydrOXYzine 25 MG tablet PO PRN (23:05)
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
[2018-11-15] MEDS: lisinopril 20mg tablet PO SCH (07:35)
[2018-11-15] MEDS: risperiDONE 2mg tablet PO SCH ×2 (07:36→20:36)
[2018-11-15] MEDS: atorvastatin 20mg tablet PO SCH (07:36)
[2018-11-15] MEDS: clonazePAM 1mg tablet PO SCH (07:36)
[2018-11-15] MEDS: buprenorphine/naloxone 2-0.5mg sublingual tablet SL SCH ×2 (07:37→20:36)
[2018-11-15 07:58] LABS: HEMOGLOBIN A1C 5.4 % (4.5-6.2)
[2018-11-15 07:59] LABS: CHOL/HDL RATIO 3.4 (0.00-4.99); CHOLESTEROL 148 MG/DL (0-200); HDL CHOLESTEROL 44 MG/DL (35-60); LDL CHOLESTEROL 89 MG/DL (50-100); TRIGLYCERIDES 112 MG/DL (20-135)
[2018-11-15] MEDS: NICOTINE POLACRILEX 2 MG LOZENGE BC PRN ×3 (08:49→17:55)
[2018-11-15] MEDS ORDERED: tuberculin, purif. prot. deriv. 5 units/0.1ml ID ONE (10:00)
[2018-11-15] MEDS: LORazepam 1 MG tablet PO PRN (11:18)
[2018-11-15] MEDS: hydrOXYzine 25 MG tablet PO PRN (16:18)
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
[2018-11-15] MEDS: carBAMazepine 100mg chewable tablet PO SCH (20:35)
--- NOTE | 2018-11-15 23:44 | NUR ---
Nursing Progress Note: Legal hold: 5150 Client on involuntary status for DTS. Report received from ELVIA Olivo with use of SBAR: Why are they here: Patient was brought into the ED by police on a 5150 involuntary psychiatric hold for grave disability and danger to self. He is well-known to the emergency department and to the police, with a history of severe mental health issues. Patient has been taking his medication by report, but today was attempting to break into his neighbor's car because he believe that someone was in there needing help. Pt. also saying he was seeing demons, and left all the burners on in his house. Pt. also had been throwing away phones that his mother was getting him and he put his mother's phone in the microwave because he was paranoid that he was being listened to. He was unable to contract for safety with police, who brought him in for further evaluation and treatment. The patient reports he feels somewhat dizzy, has not slept in the last 3 days, denies drug use. Assessment What has happened this shift: Pt watching TV in Rec room at start of shift. Pt denies anxiety "I'm just chilling" his affect is anxious seems to have trouble sitting still, gets up an paces periodically. Educated on meds. Pt agreeable with medications. "fine with me" Pt not talkative irritable with questions. Later in shift pt calmer more talkative. Still guarded but slightly more trusting talking a little more with staff and other pts. Took medications went to sleep encouraged to let staff know if he had any trouble getting to sleep. S/I, H/I: Denies A/VH: Pt. reports he was hearing voices when the police picked him up and that they were saying negative things. Pt. reports that he is currently not hearing voices. Sleep: Pt. did not nap during day shift. ADL's: Independent. Group attendance: Yes Were meds taken: Yes Any med S/E: None reported. None observed. Mental Status Exam Appearance: Pt. is clean wearing green scrubs. Eye contact: Minimal Behavior: Pt. is guarded and does not socialize with peers or staff. Mood: Withdrawn and paranoid. Affect: Constricted Thought process: Paranoid Thought Content: Pt. is focused on discharge Cognition:A&Ox4 Insight: Poor Judgment: Poor Interventions PRN's used: Nicotine, Therapeutic interventions: Restraints/seclusion/emergency medication: NA Therapeutic interventions: provided therapeutic communication and active listening, medication administration/education/monitoring, encouraged to attend groups and shower, monitored Q15min for safety. Restraints/seclusion/emergency medication: N/A. Justification of Continued Inpatient Treatment: Pt. is paranoid and needs intevention in current crises. Pt. needs medication stablization. Pt. recently having audio hallucinations and delusions.
[2018-11-16] MEDS: NICOTINE POLACRILEX 2 MG LOZENGE BC PRN ×4 (06:08→18:28)
[2018-11-16] MEDS: buprenorphine/naloxone 2-0.5mg sublingual tablet SL SCH ×2 (07:14→20:34)
[2018-11-16] MEDS: clonazePAM 1mg tablet PO SCH (07:14)
[2018-11-16] MEDS: risperiDONE 2mg tablet PO SCH ×2 (07:14→20:34)
[2018-11-16] MEDS: lisinopril 20mg tablet PO SCH (07:15)
[2018-11-16] MEDS: atorvastatin 20mg tablet PO SCH (07:17)
[2018-11-16] MEDS: hydrOXYzine 25 MG tablet PO PRN ×2 (10:26→19:15)
[2018-11-16] MEDS: LORazepam 1 MG tablet PO PRN (12:38)
--- NOTE | 2018-11-16 14:42 | NUR ---
Nursing Progress Note: Legal hold: 5150 Client on involuntary status for DTS. Report received from ELVIA Pérez with use of SBAR: Why are they here: Patient was brought into the ED by police on a 5150 involuntary psychiatric hold for grave disability and danger to self. He is well-known to the emergency department and to the police, with a history of severe mental health issues. Patient has been taking his medication by report, but today was attempting to break into his neighbor's car because he believe that someone was in there needing help. Pt. also saying he was seeing demons, and left all the burners on in his house. Pt. also had been throwing away phones that his mother was getting him and he put his mother's phone in the microwave because he was paranoid that he was being listened to. He was unable to contract for safety with police, who brought him in for further evaluation and treatment. The patient reports he feels somewhat dizzy, has not slept in the last 3 days, denies drug use. Assessment What has happened this shift: Awake and dressed upon change of shift observation. Speaks with staff in a flat, measured manner. Presents as guarded/fearful and anxious. Appears to hold his breath until he hears what is being said to him. Appears to fear he will hear words that may upset him. States his father is critical of him and he does want want him to visit him here. "He's never liked me." Enjoys the company of his mother and hopes she visits braulioight. Believes he is in the hospital "to get my meds straightened out." Acknowledges a diagnosis of schizophrenia. "Yes, that's me." Patient stays on the periphery of the milieu. Spends his time sitting in the small rec room, up against the window, with a blank stare. S/I, H/I: Denies A/VH: Pt. reports he was hearing voices when the police picked him up and that they were saying negative things. Pt. reports that he is currently not hearing voices though he appears to be responding to internal stimuli. Sleep: Pt. did not nap during day shift. ADL's: Independent. Group attendance: In and out Were meds taken: Yes Any med S/E: None reported. None observed. Mental Status Exam Appearance: Pt. is clean wearing street clothes. Eye contact: Minimal Behavior: Pt. is guarded and does not socialize with peers or staff. Mood: Withdrawn and paranoid. Affect: Constricted/Flat Thought process: Paranoid/Preston Thought Content: Limited. Cognition:A&Ox4 Insight: Poor Judgment: Poor Interventions PRN's used: Nicotine Lozenges, Anti-Anxiety Medications Therapeutic interventions: Restraints/seclusion/emergency medication: NA Therapeutic interventions: provided therapeutic communication and active listening, medication administration/education/monitoring, encouraged to attend groups and shower, monitored Q15min for safety. Restraints/seclusion/emergency medication: N/A. Justification of Continued Inpatient Treatment: Pt. is paranoid and needs intevention in current crises. Pt. needs medication stabilization. Pt. recently having audio hallucinations and delusions.
--- NOTE | 2018-11-16 19:01 | NUR ---
DISCHARGE PLANNING: Faxed a pre-discharge pkt to [facility] in order to schedule hospital discharge follow-up appt. w/ pt's PCP, waiting for RN to phone back w/ appt. SESAR Noble
[2018-11-16 20:00] VITALS: BP 126/75
[2018-11-16] MEDS: carBAMazepine 100mg chewable tablet PO SCH (20:35)
--- NOTE | 2018-11-16 23:59 | NUR ---
Nursing Progress Note: Legal hold: 5150 Client on voluntary/involuntary status for DTS Report received from nurse with use of SBAR: ELVIA Randle Why are they here: Patient was brought into the ED by police on a 5150 hold for grave disability and danger to self. He has a history of schizophrenia . Patient was attempting to break into his neighbor's car because he believes that someone was in there needing help. Pt. also saying he was seeing demons, and left all the burners on in his house. Pt. had been throwing away phones that his mother was getting him and he put his mother's phone in the microwave because he was paranoid that he was being listened to. He reports insomnia X3 days. Assessment What has happened this shift: Pt. in the hallway at the beginning of the shift, eagerly awaiting a visit from his parents. Visit took place in the group room, and when questioned by this fiction and nonfiction writer prose whether it was going well, pt. confirmed that it was and he was not bothered by receiving a visit from his father as long as they did not "sit too close together." Pt. requested PRN Atrax, administered with effectiveness. This fiction and nonfiction writer prose later provided education to pt. to let staff know if he changes his mind at any time and decides that he does not want to accept any further visits from his father, pt. voiced understanding. Will endorse to AM shift. 1:1 completed at bedside, pt. presents as cooperative, slightly anxious, and guarded with paranoid delusions. He lowers his voice and looks to make sure no one is listening, then states, "I could tell you a lot of crazy things, I'm scared of my house." Pt. goes on to tell this fiction and nonfiction writer prose about how he feels the electricity in his house is messing with his mind, how his house used to be a alliance party house and he can "feel the vibe," and how the tree in his yard was communicating with him through the tattoo on his back. When this fiction and nonfiction writer prose asks pt. questions to clarify statements, he will become slightly irritable, however he is able to maintain control of his emotions. S/I, H/I: Denies A/VH: Denies, appears preoccupied at times Sleep: Pt. awakens at approximately 0000 and requests PRN Restoril for insomnia, will continue to monitor. ADL's: Requires some direction from staff Group attendance: Pt. reports he attends groups Were meds taken: Yes Any med S/E: None Mental Status Exam Appearance: Neat and appropriately dressed in hospital attire Eye contact: Fair, intense when discussing paranoid delusions Behavior: Cooperative, slightly anxious, and guarded/slightly irritable at times with paranoid delusions Speech: Soft, becomes intense when discussing paranoid delusions Mood: Guarded Affect: Constricted Thought process: Disorganized when relating paranoid delusions Thought Content: Preoccupation with paranoid delusions, possible A/H, and phobias r/t his home Cognition: A&O X4 Insight: Poor Judgment: Poor Interventions PRN's used: Atrax X1 and Temazepam X 1 Therapeutic interventions: Introduced self and established rapport, ensured contract for safety, maintained a safe and supportive environment, monitored for changes in behavior and needed interventions, educated pt. to notify staff if experiencing insomnia and provided needed intervention, and maintained Q 15 min safety checks. Restraints/seclusion/emergency medication: N/A Justification of Continued Inpatient Treatment: Pt. requires interruption of current crisis, medication adjustments, and a safe and supportive environment.
[2018-11-17] MEDS: temazepam 15mg capsule PO PRN (00:03)
[2018-11-17] MEDS: hydrOXYzine 25 MG tablet PO PRN ×3 (03:11→17:17)
[2018-11-17] MEDS: NICOTINE POLACRILEX 2 MG LOZENGE BC PRN ×6 (05:41→19:13)
[2018-11-17] MEDS: risperiDONE 0.5mg tablet PO SCH ×2 (07:36→20:46)
[2018-11-17] MEDS: clonazePAM 1mg tablet PO SCH (07:36)
[2018-11-17] MEDS: buprenorphine/naloxone 2-0.5mg sublingual tablet SL SCH ×2 (07:36→20:46)
[2018-11-17] MEDS: atorvastatin 20mg tablet PO SCH (07:37)
[2018-11-17] MEDS: lisinopril 20mg tablet PO SCH (07:37)
[2018-11-17 07:39] VITALS: BP 116/70
[2018-11-17] MEDS ORDERED: CLOZAPINE 25 MG oral disintegrating tablet PO SCH (08:00)
--- NOTE | 2018-11-17 14:15 | NUR ---
Nursing Progress Note: Aric Legal hold: 5150 Expires 11/17/18 @ 210 Client on voluntary/involuntary status for DTS Report received from nurse with use of SBAR: ELVIA Pérez Why are they here: Patient was brought into the ED by police on a 5150 hold for grave disability and danger to self. He has a history of schizophrenia . Patient was attempting to break into his neighbor's car because he believes that someone was in there needing help. Pt. also saying he was seeing demons, and left all the burners on in his house. Pt. had been throwing away phones that his mother was getting him and he put his mother's phone in the microwave because he was paranoid that he was being listened to. He reports insomnia X3 days. Assessment What has happened this shift: Patient was in community room at change of shift. Was compliant with both physical and MH assessment and medication pass. Denied voices but describes noises which are hard to explain. Was agreeable to work with a student and participated willingly in completing mini mental health exam, depression scale and a "SLUMS". Joined other clients and SW for an activity outside on the patio. Continues to wear dark glasses stating that his eyes are sensitive to light. During a conversation with this blurb writer, patient seemed very open to explain/describe situation which led to his admission here. Shared that he was frustrated with the electricity in his house, I couldnt play on my computer because of the way the electricity was He further explained he wanted to put a pond in,like it was when my grandparents lived there. Discussed his visit with his parents and stated it was good and that he is ready to go home. Family does have a trusted friend to transport if necessary. He described the car incident as sometimes I hear things, I thought someone needed help. I dont read because my mind begins to believe I am part of the story. S/I, H/I: Denies A/VH: Denies, appears preoccupied at times Sleep: 8 states broken up has difficulty sleeping here ADL's: Requires some direction from staff Group attendance: Yes Were meds taken: Yes Any med S/E: None Mental Status Exam Appearance: Neat and appropriately dressed in hospital attire Eye contact: Fair, intense when discussing paranoid delusions Behavior: Cooperative, slightly anxious, and guarded/slightly irritable at times with paranoid delusions Speech: Soft, becomes intense when discussing paranoid delusions Mood: Guarded Affect: Constricted Thought process: Linear Thought Content: Ready for discharge home, unable to sleep, too many people here, causes increased anxiety. Cognition: A&O X4 Insight: Poor Judgment: Poor Interventions PRN's used: nicotine lozenge, Atarax Therapeutic interventions: Introduced self and established rapport, ensured contract for safety, maintained a safe and supportive environment, monitored for changes in behavior and needed interventions, educated pt. to notify staff if experiencing insomnia and provided needed intervention, and maintained Q 15 min safety checks. Restraints/seclusion/emergency medication: N/A Justification of Continued Inpatient Treatment: Pt. requires interruption of current crisis, medication adjustments, and a safe and supportive environment.
[2018-11-17 20:00] VITALS: BP 120/74
[2018-11-17] MEDS: carBAMazepine 100mg chewable tablet PO SCH (20:47)
--- NOTE | 2018-11-17 23:54 | NUR ---
Nursing Progress Note: Legal hold: 5250 Client on voluntary/involuntary status for DTS Report received from nurse with use of SBAR: ELVIA Oseguera Why are they here: Patient was brought into the ED by police on a 5150 hold for grave disability and danger to self. He has a history of schizophrenia . Patient was attempting to break into his neighbor's car because he believes that someone was in there needing help. Pt. also saying he was seeing demons, and left all the burners on in his house. Pt. had been throwing away phones that his mother was getting him and he put his mother's phone in the microwave because he was paranoid that he was being listened to. He reports insomnia X3 days. Assessment What has happened this shift: Pt. received a visit from his parents again in the Group Room at the beginning of the shift, visit appeared to go well and pt. did not report any anxiety or request PRN anxiolytics. When questioned by this law writer regarding visit, pt. stated, "It went good, we were able to figure some things out." 1:1 completed later, pt. continues to present as cooperative, slightly restless, and guarded in regard to mental health issues. He denies any S/I or H/A, and reports his anxiety is better. Pt. does not make any paranoid delusional statements this shift, however he continues to wear dark glasses and present as somewhat hypervigilant of his surroundings. His mood appears stable and he does not exhibit any lability this shift. When questioned by this law writer whether he attended groups today, pt. stated, "Partially, but the Clozaril made me tired," will endorse to AM shift and continue to monitor. Pt. presented with 5250 by this law writer, he voices understanding and is compliant with signing it. S/I, H/I: Denies A/VH: Denies, appears somewhat hypervigilant of his surroundings Sleep: Pt. reports he slept well after administration of PRN Restoril last night, this law writer encouraged pt. to notify staff of any insomnia this shift, he reported understanding. ADL's: Requires some direction from staff Group attendance: When questioned by this law writer whether he attended groups today, pt. stated, "Partially, but the Clozaril made me tired." Were meds taken: Yes Any med S/E: Pt. reports the Clozaril made him tired today, will endorse to AM shift and continue to monitor. Mental Status Exam Appearance: Neat and appropriately dressed in hospital attire. Wears dark sun glasses Eye contact: Fair Behavior: Cooperative, slightly restless, and guarded in regard to mental health issues Speech: Soft, becomes intense when discussing paranoid delusions Mood: Guarded Affect: Constricted Thought process: Poverty of thought and blocking regarding mental health Thought Content: Appears hypervigilant, possibly regardign paranoid delusions and possible A/H, Cognition: A&O X4 Insight: Poor Judgment: Poor Interventions PRN's used: Nicotine Lozenge Therapeutic interventions: Ensured contract for safety, maintained a safe and supportive environment, monitored for changes in behavior and needed interventions, educated pt. to notify staff if experiencing insomnia and provided needed intervention, and maintained Q 15 min safety checks. Restraints/seclusion/emergency medication: N/A Justification of Continued Inpatient Treatment: Pt. placed on a 5250 r/t ongoing psychotic s/s and delusions per Dr. Cardenas. He requires medication adjustments and a safe and supportive environment.
[2018-11-18] MEDS: temazepam 15mg capsule PO PRN ×2 (01:13→23:56)
--- NOTE | 2018-11-18 01:14 | NUR ---
Nursing Note: Pt. awoke at approximately 0100 and requested PRN Temazepam for insomnia, administered and will continue to monitor.
[2018-11-18 07:22] VITALS: BP 107/70
[2018-11-18] MEDS: risperiDONE 0.5mg tablet PO SCH (07:29)
[2018-11-18] MEDS: atorvastatin 20mg tablet PO SCH (07:30)
[2018-11-18] MEDS: buprenorphine/naloxone 2-0.5mg sublingual tablet SL SCH ×2 (07:30→20:21)
[2018-11-18] MEDS: clonazePAM 1mg tablet PO SCH (07:30)
[2018-11-18] MEDS: lisinopril 20mg tablet PO SCH (07:30)
[2018-11-18] MEDS: NICOTINE POLACRILEX 2 MG LOZENGE BC PRN ×3 (07:33→15:14)
[2018-11-18] MEDS ORDERED: CLOZAPINE 25 MG oral disintegrating tablet PO SCH (08:00)
[2018-11-18] MEDS: hydrOXYzine 25 MG tablet PO PRN (15:15)
--- NOTE | 2018-11-18 16:56 | NUR ---
Nursing Progress Note: Legal hold: 5250 Client on voluntary/involuntary status for DTS Report received from nurse with use of SBAR: Isabel Goodrich RN Why are they here: Patient was brought into the ED by police on a 5150 hold for grave disability and danger to self. He has a history of schizophrenia. Patient was attempting to break into his neighbor's car because he believes that someone was in there needing help. Pt. also saying he was seeing demons, and left all the burners on in his house. Pt. had been throwing away phones that his mother was getting him and he put his mother's phone in the microwave because he was paranoid that he was being listened to. He reports insomnia X3 days. Assessment What has happened this shift: Pt up and down throughout this shift. Pt attended AM group, spent time watching TV and sat at a window looking out. He requested hydroxyzine and a nicotine lozenge after lunch. S/I, H/I: Denies A/VH: Denies Sleep: Napped on and off throughout the shift. ADL's: Refused when prompted to shower Group attendance: AM attendance; slept through PM group Were Meds taken: Yes Any med S/E: None noted or observed Mental Status Exam Appearance: Wears dark sun glasses; currently in shorts and t-shirt Eye contact: Fair Behavior: Cooperative, guarded Speech: Soft and pressured Mood: Irritable Affect: Constricted Thought process: Focused on being discharged Thought Content: Paranoid Cognition: A/Ox4 Insight: Poor Judgment: Poor Interventions PRN's used: Nicotine Lozenge, hydroxyzine Therapeutic interventions: Provided therapeutic communication, encouraged to attend groups, and maintained Q 15 min safety checks. Restraints/seclusion/emergency medication: N/A Justification of Continued Inpatient Treatment: Pt. placed on a 5250 r/t ongoing psychotic s/s and delusions per Dr. Cardenas. He requires medication adjustments and a safe and supportive environment.
[2018-11-18] MEDS: LORazepam 1 MG tablet PO PRN (18:04)
[2018-11-18 20:00] VITALS: BP 112/66
[2018-11-18] MEDS: carBAMazepine 100mg chewable tablet PO SCH (20:21)
[2018-11-18] MEDS ORDERED: CLOZAPINE 25 MG oral disintegrating tablet PO ONE (21:00)
--- NOTE | 2018-11-18 23:15 | NUR ---
Nursing Progress Note: Legal hold: 5250 Client on voluntary/involuntary status for DTS Report received from nurse with use of SBAR: ELVIA Oseguera Why are they here: Patient was brought into the ED by police on a 5150 hold for grave disability and danger to self. He has a history of schizophrenia. Patient was attempting to break into his neighbor's car because he believes that someone was in there needing help. Pt. also saying he was seeing demons, and left all the burners on in his house. Pt. had been throwing away phones that his mother was getting him and he put his mother's phone in the microwave because he was paranoid that he was being listened to. He reports insomnia X3 days. Assessment What has happened this shift: Pt. in bed asleep at the beginning of the shift, continues to wear his dark sunglasses. Later up in the Recreation Room watching a movie and interacting minimally with others. 1:1 completed later, pt. presents as cooperative, slightly fatigued, and guarded in regard to mental health issues. He continues to deny and minimize any H/A or paranoid delusions, reports his anxiety is better, and did not request PRN anxiolytics. Pt. continues to wear dark glasses and present as somewhat hypervigilant of his surroundings. When this health technical writer questioned pt. regarding his plans after discharge, he reports he plans to go back to his home, however his father will help him to put a lock on the electricity boxes so he will stay away from them. This health technical writer provided education to pt. regarding the dangers of electricity, and he smiles/laughs, again minimizing with poor insight. His mood appears stable and he does not exhibit any lability this shift. S/I, H/I: Denies A/VH: Denies, appears somewhat hypervigilant of his surroundings Sleep: Pt. requests PRN Restoril at approximately 0000 ADL's: Requires some direction from staff Group attendance: Pt. reports he attends some groups Were meds taken: Yes Any med S/E: Pt. reports he continues to feel fatigued, however he is hoping that changing his scheduled Clozaril to HS will help. Mental Status Exam Appearance: Neat and appropriately dressed in hospital attire. Wears dark sun glasses Eye contact: Fair Behavior: Cooperative and guarded in regard to mental health issues Speech: Soft, pt. smiles and laughs a lot, minimizing with poor insight Mood: Guarded Affect: Constricted Thought process: Poverty of thought and blocking regarding mental health Thought Content: Appears hypervigilant, possibly regarding paranoid delusions and possible A/H. Continues to minimize mental health issues Cognition: A&O X4 Insight: Poor Judgment: Poor Interventions PRN's used: Temazepam Therapeutic interventions: Ensured contract for safety, maintained a safe and supportive environment, monitored for changes in behavior and needed interventions, educated pt. to notify staff if experiencing insomnia and provided needed intervention, and maintained Q 15 min safety checks. Restraints/seclusion/emergency medication: N/A Justification of Continued Inpatient Treatment: Per Dr. Cardenas, pt. continues to minimize s/s, be dependent for ADLs, and have poor insight. He requires medication adjustments and a safe and supportive environment.
[2018-11-19] MEDS: LORazepam 1 MG tablet PO PRN (07:13)
[2018-11-19] MEDS: buprenorphine/naloxone 2-0.5mg sublingual tablet SL SCH ×2 (07:13→20:57)
[2018-11-19] MEDS: NICOTINE POLACRILEX 2 MG LOZENGE BC PRN ×4 (07:13→19:28)
[2018-11-19] MEDS: hydrOXYzine 25 MG tablet PO PRN ×2 (07:13→18:00)
[2018-11-19] MEDS: clonazePAM 1mg tablet PO SCH (07:13)
[2018-11-19 07:14] VITALS: BP 125/76
[2018-11-19] MEDS: atorvastatin 20mg tablet PO SCH (07:14)
[2018-11-19] MEDS: lisinopril 20mg tablet PO SCH (07:14)
[2018-11-19] MEDS ORDERED: CLOZAPINE 25 MG oral disintegrating tablet PO ONE (08:00)
--- NOTE | 2018-11-19 11:40 | NUR ---
Nursing Progress Note: Legal hold: 525 expires 12/01 Client on voluntary/involuntary status for DTS Report received from nurse with use of SBAR: Isabel Goodrich RN Why are they here: Patient was brought into the ED by police on a 5150 hold for grave disability and danger to self. He has a history of schizophrenia. Patient was attempting to break into his neighbor's car because he believes that someone was in there needing help. Pt. also saying he was seeing demons, and left all the burners on in his house. Pt. had been throwing away phones that his mother was getting him and he put his mother's phone in the microwave because he was paranoid that he was being listened to. He reports insomnia X3 days. Assessment What has happened this shift: Patient awake at change of shift. He was visible on the unit. He took all medications as prescribed. Behavior was cooperative. He is very anxious, guarded and paranoid. Attended group. Talked about going home. [place] to have good relationship with mother. Relationship with father is strained. He answers only closed ended questions. He hears voices, but does not specify what they say. He is restless and very particular about how things are done. S/I, H/I: Denies A/VH: Denies Sleep: Napped on and off throughout the shift. ADL's: Refused when prompted to shower Group attendance: AM attendance; slept through PM group Were Meds taken: Yes Any med S/E: None noted or observed Mental Status Exam Appearance: Disheveled wears own clothes Eye contact: Fair Behavior: Cooperative, guarded, anxious, paranoid Speech: Normal rate and rhythm Mood: Irritable Affect: Constricted Thought process: Focused on being discharged Thought Content: Paranoid Cognition: A/Ox4 Insight: Poor Judgment: Poor Interventions PRN's used: Nicotine Lozenge, hydroxyzine, Ativan Therapeutic interventions: Provided therapeutic communication, encouraged to attend groups, and maintained Q 15 min safety checks. Restraints/seclusion/emergency medication: N/A Justification of Continued Inpatient Treatment: Pt. placed on a 5250 r/t ongoing psychotic s/s and delusions per Dr. Cardenas. He requires medication adjustments and a safe and supportive environment.
--- NOTE | 2018-11-19 12:33 | NUR ---
Initial: Pt admit with psychosis. Currently on regular diet documented with 75-100% PO intake meeting nutrient needs. LBM 11/18 documented as small, moderate size stool prior to that. Pt with MoM PRN not yet given. No edema or wounds. No nutrition diagnosis at this time. Will continue to follow. Recommendations: 1) Continue regular diet 2) Bowel care PRN 3) Weekly weights Addendum: 11/19/18 at [address] Amended: Links added.
[2018-11-19 19:33] VITALS: BP 144/73
[2018-11-19] MEDS: temazepam 15mg capsule PO PRN (20:57)
[2018-11-19] MEDS: carBAMazepine 100mg chewable tablet PO SCH (20:59)
[2018-11-19] MEDS ORDERED: CLOZAPINE 25 MG oral disintegrating tablet PO SCH ×2 (21:00)
--- NOTE | 2018-11-20 03:26 | NUR ---
Nursing Progress Note: Legal hold: 5249 expires 12/01 Client on voluntary/involuntary status for DTS Report received from ELVIA Oseguera with use of SBAR. Why are they here: Patient was brought into the ED by police on a 515 hold for grave disability and danger to self. He has a history of schizophrenia. Patient was attempting to break into his neighbor's car because he believes that someone was in there needing help. Pt. also saying he was seeing demons, and left all the burners on in his house. Pt. had been throwing away phones that his mother was getting him and he put his mother's phone in the microwave because he was paranoid that he was being listened to. He reports insomnia X3 days. Assessment: Patient ambulating hallway during the evening. Patient is well oriented. He exhibits anxiety. He denies suicidal or homicidal ideation. When asked how he is feeling patient replied, "I don't worry about anything." Patient looks away when talking to this production underwriter. His affect is flat. Patient denies hearing any voices, he denies paranoia. Patient does shift from foot to foot while talking. He occasionally looks around. Patient is given a nicotine lozenge for his nicotine craving. Patient is advised that he is in a safe place, he exhibits understanding. What has happened this shift: S/I, H/I: Denies. A/VH: Denies. Sleep: Sleeping during night, tally in am. ADL's: Declined shower on day shift. Group attendance: Attended one group on day shift. Were Meds taken: Patient is medication compliant. Any med S/E: None noted or observed Mental Status Exam Appearance: Disheveled wears own clothes Eye contact: Fair Behavior: Cooperative, guarded, anxious, paranoid Speech: Normal rate and rhythm Mood: Irritable Affect: Constricted Thought process: Focused on being discharged Thought Content: Paranoid Cognition: A/Ox4 Insight: Poor Judgment: Poor Interventions PRN's used: Nicotine Lozenge, Ativan Therapeutic interventions: Provided therapeutic communication, encouraged to attend groups, and maintained Q 15 min safety checks. Restraints/seclusion/emergency medication: N/A Justification of Continued Inpatient Treatment: Pt. placed on a 5250 r/t ongoing psychotic s/s and delusions per Dr. Cardenas. He requires medication adjustments and a safe and supportive environment.
[2018-11-20] MEDS: NICOTINE POLACRILEX 2 MG LOZENGE BC PRN ×2 (06:58→17:48)
[2018-11-20] MEDS: buprenorphine/naloxone 2-0.5mg sublingual tablet SL SCH ×2 (07:24→21:12)
[2018-11-20] MEDS: atorvastatin 20mg tablet PO SCH (07:24)
[2018-11-20] MEDS: clonazePAM 1mg tablet PO SCH (07:24)
[2018-11-20] MEDS: lisinopril 20mg tablet PO SCH (07:28)
[2018-11-20 08:00] VITALS: BP 103/64
[2018-11-20 11:09] LABS: BASOPHILS % (AUTO) 0.3 % (0-1); EOSINOPHILS # (AUTO) 0.2 X10'3 (0-0.9); HEMATOCRIT 43.5 % (42.0-52.0); HEMOGLOBIN 15.1 g/dl (14.0-17.9); LYMPHOCYTES # (AUTO) 3.1 X10'3 (1.1-4.8); LYMPHOCYTES % (AUTO) 38.9 % (21-51); MEAN CORPUSCULAR HGB CONC 34.6 g/dL (33.0-36.5); MEAN CORPUSCULAR VOLUME 83.8 FL (78-98); MONOCYTES # (AUTO) 0.7 X10'3 (0-0.9); MONOCYTES % (AUTO) 8.3 % (2-12); NEUTROPHILS # (AUTO) 3.9 X10'3 (1.8-7.7); NEUTROPHILS % (AUTO) 49.5 % (42-75); PLATELET COUNT 237 X10'3 (140-440); RED BLOOD COUNT 5.19 X10'6 (4.70-6.10); RED CELL DISTRIBUTION WIDTH 13.1 % (11.5-14.5); WHITE BLOOD COUNT 7.9 X10'3 (4.5-11.0)
--- NOTE | 2018-11-20 15:34 | NUR ---
Nursing Progress Note: Legal hold: 525 expires 12/01 Client on voluntary/involuntary status for DTS Report received from Leigha Grover RN with use of SBAR. Why are they here: Patient was brought into the ED by police on a 5150 hold for grave disability and danger to self. He has a history of schizophrenia. Patient was attempting to break into his neighbor's car because he believes that someone was in there needing help. Pt. also saying he was seeing demons, and left all the burners on in his house. Pt. had been throwing away phones that his mother was getting him and he put his mother's phone in the microwave because he was paranoid that he was being listened to. He reports insomnia X3 days. Assessment: What has happened this shift: Patient is observed looking out the window in rec room at change of shift. He approaches this RN and requests a nicotine lozenge. He states that he did not sleep well last night and that he usually does not. However, he reports that he is doing well. He attends all meals and groups. He is calm throughout the day and when asked he denies needing anything. S/I, H/I: none reported A/VH: none reported Sleep: 6.75hrs NOC ADL's: Independent Group attendance: yes Were Meds taken: yes Any med S/E: None noted or observed Mental Status Exam Appearance: wears sunglasses and own clothing Eye contact: Fair Behavior: Cooperative, guarded Speech: Normal rate and rhythm Mood: content Affect: flat Thought process: linear Thought Content: no delusional thought content presented to this RN, this shift Cognition: A/Ox4 Insight: Poor Judgment: Poor Interventions PRN's used: Nicotine Lozenge Therapeutic interventions: 1:1 assessment, establishment of rapport, maintained safe therapeutic milieu, provided active listening with positive feedback, provided medication education, monitored for change in behavior and provided needed interventions. Q 15 minute safety checks. Restraints/seclusion/emergency medication: N/A Justification of Continued Inpatient Treatment: Pt. placed on a 5250 r/t ongoing psychotic s/s and delusions per Dr. Cardenas. Continued therapeutic support and medication management needed to provide stabilization, prevent decompensation, improve coping mechanisms decreasing risk to patient and re-admittance.
[2018-11-20 19:57] VITALS: BP 116/75
[2018-11-20] MEDS ORDERED: CLOZAPINE 25 MG oral disintegrating tablet PO SCH (21:00)
[2018-11-20] MEDS: temazepam 15mg capsule PO PRN (21:03)
[2018-11-20] MEDS: hydrOXYzine 25 MG tablet PO PRN (21:03)
[2018-11-20] MEDS: carBAMazepine 100mg chewable tablet PO SCH (21:13)
--- NOTE | 2018-11-21 00:51 | NUR ---
Nursing Progress Note: Legal hold: 5250 expires 12/01 Client on voluntary/involuntary status for DTS Report received from ELVIA Oseguera with use of SBAR. Why are they here: Patient was brought into the ED by police on a 5150 hold for grave disability and danger to self. He has a history of schizophrenia. Patient was attempting to break into his neighbor's car because he believes that someone was in there needing help. Pt. also saying he was seeing demons, and left all the burners on in his house. Pt. had been throwing away phones that his mother was getting him and he put his mother's phone in the microwave because he was paranoid that he was being listened to. He reports insomnia X3 days. Assessment: What has happened this shift: Patient self isolates in room this NOC shift. He is awake and well oriented. Affect is flat. When asked how he is feeling patient states, "I'm chilling, I'm feeling normal." Patients affect is flat. Patient ate his meals and is medication compliant. He denies H/I, S/I, or hallucinations. He is well oriented. S/I, H/I: None reported A/VH: None reported Sleep: Resting in bed, will tally sleep hours in am. ADL's: Independent Group attendance: Yes, on day shift. Were Meds taken: Yes Any med S/E: None noted or observed Mental Status Exam Appearance: Wearing street clothes. No sun glasses on NOC shift. Eye contact: Fair Behavior: Cooperative, guarded. Speech: Normal rate and rhythm. Mood: Content. Affect: Flat. Thought process: Linear. Thought Content: Patient states his thoughts are normal. Cognition: A/Ox4 Insight: Poor Judgment: Poor Interventions PRN's used:None. Therapeutic interventions: 1:1 assessment, establishment of rapport, maintained safe therapeutic milieu, provided active listening with positive feedback, provided medication education, monitored for change in behavior and provided needed interventions. Q 15 minute safety checks. Restraints/seclusion/emergency medication: N/A Justification of Continued Inpatient Treatment: Pt. placed on a 5250 r/t ongoing psychotic s/s and delusions per Dr. Cardenas. Continued therapeutic support and medication management needed to provide stabilization, prevent decompensation, improve coping mechanisms decreasing risk to patient and re-admittance.
[2018-11-21] MEDS: NICOTINE POLACRILEX 2 MG LOZENGE BC PRN ×2 (07:04→17:44)
[2018-11-21] MEDS: buprenorphine/naloxone 2-0.5mg sublingual tablet SL SCH ×2 (07:04→20:52)
[2018-11-21] MEDS: atorvastatin 20mg tablet PO SCH (07:04)
[2018-11-21] MEDS: clonazePAM 1mg tablet PO SCH (07:04)
[2018-11-21] MEDS: lisinopril 20mg tablet PO SCH (07:44)
[2018-11-21 08:00] VITALS: BP 132/87
[2018-11-21] MEDS ORDERED: CLOZAPINE 25 MG oral disintegrating tablet PO SCH ×2 (08:00→21:00)
[2018-11-21] MEDS: hydrOXYzine 25 MG tablet PO PRN (10:47)
[2018-11-21] MEDS ORDERED: clozapine 25mg tablet PO SCH (14:11)
--- NOTE | 2018-11-21 15:54 | NUR ---
Nursing Progress Note: Legal hold: 525 expires 12/01 Client on voluntary/involuntary status for DTS Report received from ELVIA Serrano with use of SBAR. Why are they here: Patient was brought into the ED by police on a 5150 hold for grave disability and danger to self. He has a history of schizophrenia. Patient was attempting to break into his neighbor's car because he believes that someone was in there needing help. Pt. also saying he was seeing demons, and left all the burners on in his house. Pt. had been throwing away phones that his mother was getting him and he put his mother's phone in the microwave because he was paranoid that he was being listened to. He reports insomnia X3 days. Assessment: What has happened this shift: Patient is observed sleeping comfortably in his room. When he wakes he reports feeling anxious and requests PRN and nicotine lozenge. Patient is starting AM dose of clozapine, patient denies questions regarding this. All medications administered to patient without issue. Patient reports that he slept well the night before and says that he is feeling well today. He attends all groups. His demeanor is calm and pleasant throughout the day. S/I, H/I: none reported A/VH: none reported Sleep: 9hrs NOC ADL's: Independent Group attendance: yes Were Meds taken: yes Any med S/E: None noted or observed Mental Status Exam Appearance: wears sunglasses inside, dressed in own clothing Eye contact: direct Behavior: Cooperative, guarded when asked questions r/t diagnosis Speech: soft tone, Normal rate and rhythm Mood: content Affect: flat Thought process: linear Thought Content: no delusional thought content presented to this RN Cognition: A/Ox4 Insight: Poor Judgment: Poor Interventions PRN's used: Nicotine Lozenge, atarax Therapeutic interventions: 1:1 assessment, establishment of rapport, maintained safe therapeutic milieu, provided active listening with positive feedback, provided medication education, monitored for change in behavior and provided needed interventions. Q 15 minute safety checks. Restraints/seclusion/emergency medication: N/A Justification of Continued Inpatient Treatment: Pt. placed on a 5250 r/t ongoing psychotic s/s and delusions per Dr. Cardenas. Continued therapeutic support and medication management needed to provide stabilization, prevent decompensation, improve coping mechanisms decreasing risk to patient and re-admittance.
[2018-11-21 20:59] VITALS: BP 110/63
[2018-11-21] MEDS: carBAMazepine 100mg chewable tablet PO SCH (21:00)
[2018-11-21] MEDS: clozapine 100mg tablet PO SCH (21:00)
--- NOTE | 2018-11-22 00:32 | NUR ---
Nursing Progress Note: Legal hold: 5250 expires 12/01 Client on voluntary/involuntary status for DTS Report received from ELVIA Serrano with use of SBAR. Why are they here: Patient was brought into the ED by police on a 5150 hold for grave disability and danger to self. He has a history of schizophrenia. Patient was attempting to break into his neighbor's car because he believes that someone was in there needing help. Pt. also saying he was seeing demons, and left all the burners on in his house. Pt. had been throwing away phones that his mother was getting him and he put his mother's phone in the microwave because he was paranoid that he was being listened to. He reports insomnia X3 days. Assessment: What has happened this shift: Patient is in his room following shift change. He remains there all evening. Patient is well oriented. He does not talk freely but does answer direct questions. Patient denies S/I or H/I. He denies hallucinations. Patient looks depressed but does not discuss this. His affect is flat. Patient ate dinner but otherwise did not leave his room. S/I, H/I: None reported. A/VH: None reported. Sleep: Goes to sleep right after shift change. ADL's: Independent. Group attendance: Yes. Were Meds taken: Yes. Any med S/E: None. Mental Status Exam Appearance: Wearing own clothes. Eye contact: Direct. Behavior: Cooperative, guarded when asked questions r/t diagnosis Speech: soft tone, Normal rate and rhythm Mood: content Affect: Flat> Thought process: Linear. Thought Content: No delusional thought content presented to this RN. Cognition: A/Ox4 Insight: Poor. Judgment: Poor. Interventions PRN's used: Nicotine Lozenge, atarax Therapeutic interventions: 1:1 assessment, establishment of rapport, maintained safe therapeutic milieu, provided active listening with positive feedback, provided medication education, monitored for change in behavior and provided needed interventions. Q 15 minute safety checks. Restraints/seclusion/emergency medication: N/A Justification of Continued Inpatient Treatment: Pt. placed on a 5250 r/t ongoing psychotic s/s and delusions per Dr. Cardenas. Continued therapeutic support and medication management needed to provide stabilization, prevent decompensation, improve coping mechanisms decreasing risk to patient and re-admittance.
[2018-11-22 07:27] VITALS: BP 121/64
[2018-11-22] MEDS: clonazePAM 1mg tablet PO SCH (07:51)
[2018-11-22] MEDS: atorvastatin 20mg tablet PO SCH (07:51)
[2018-11-22] MEDS: buprenorphine/naloxone 2-0.5mg sublingual tablet SL SCH ×2 (07:53→20:32)
[2018-11-22] MEDS ORDERED: clozapine 25mg tablet PO SCH (08:00)
[2018-11-22] MEDS: lisinopril 20mg tablet PO SCH (08:33)
--- NOTE | 2018-11-22 16:41 | NUR ---
Nursing Progress Note: Legal hold: 525 expires 12/01 Client on voluntary/involuntary status for DTS Report received from ELVIA Pérez with use of SBAR. Why are they here: Patient was brought into the ED by police on a 5150 hold for grave disability and danger to self. He has a history of schizophrenia. Patient was attempting to break into his neighbor's car because he believes that someone was in there needing help. Pt. also saying he was seeing demons, and left all the burners on in his house. Pt. had been throwing away phones that his mother was getting him and he put his mother's phone in the microwave because he was paranoid that he was being listened to. He reports insomnia X3 days. Assessment: What has happened this shift: Patient is observed sleeping comfortably in his room. He wakes before breakfast and is observed looking out the window in rec room. He states that he slept well last night. RN explained increase in clozaril this morning and patient verbalizes understanding. He does not request nicotine lozenge this AM nor does he report anxiety, as he has in prior shifts worked. He states he feels ok. He takes his meds without issue and then joins others in group room for breakfast. He does attend groups today but also is seen resting in his room. S/I, H/I: none reported A/VH: none reported Sleep: 9.25hrs NOC ADL's: Independent Group attendance: yes Were Meds taken: yes Any med S/E: None noted or observed Mental Status Exam Appearance: appears tired, dressed in own clothing Eye contact: direct Behavior: Cooperative, guarded when asked questions r/t diagnosis Speech: soft tone, Normal rate and rhythm, minimal answers Mood: content Affect: flat Thought process: linear Thought Content: no delusional thought content presented to this RN Cognition: A/Ox4 Insight: Poor Judgment: Poor Interventions PRN's used: Therapeutic interventions: 1:1 assessment, establishment of rapport, maintained safe therapeutic milieu, provided active listening with positive feedback, provided medication education, monitored for change in behavior and provided needed interventions. Q 15 minute safety checks. Restraints/seclusion/emergency medication: N/A Justification of Continued Inpatient Treatment: Pt. placed on a 5250 r/t ongoing psychotic s/s and delusions per Dr. Cardenas. Continued therapeutic support and medication management needed to provide stabilization, prevent decompensation, improve coping mechanisms decreasing risk to patient and re-admittance.
[2018-11-22] MEDS: NICOTINE POLACRILEX 2 MG LOZENGE BC PRN (19:05)
[2018-11-22] MEDS: LORazepam 1 MG tablet PO PRN (19:05)
[2018-11-22 20:05] VITALS: BP 124/85
[2018-11-22] MEDS: temazepam 15mg capsule PO PRN (20:32)
[2018-11-22] MEDS: carBAMazepine 100mg chewable tablet PO SCH (20:32)
[2018-11-22] MEDS: clozapine 100mg tablet PO SCH (20:32)
[2018-11-22] MEDS: CLOZAPINE 25 MG oral disintegrating tablet PO SCH (20:32)
--- NOTE | 2018-11-22 22:55 | NUR ---
Nursing Progress Note: Legal hold: 525 expires 12/01 Client on voluntary/involuntary status for DTS Report received from ELVIA Oseguera with use of SBAR. Why are they here: Patient was brought into the ED by police on a 5150 hold for grave disability and danger to self. He has a history of schizophrenia. Patient was attempting to break into his neighbor's car because he believes that someone was in there needing help. Pt. also saying he was seeing demons, and left all the burners on in his house. Pt. had been throwing away phones that his mother was getting him and he put his mother's phone in the microwave because he was paranoid that he was being listened to. He reports insomnia X3 days. Assessment: What has happened this shift: Patient is in his room at change of shift. He appears restless and immediately reports anxiety and asks for a medication to help with this. Ativan is given along with a Nicotine lozenge as requested. He then presents to the group room to visit with his family. He cuts the visit short and returns back to his room and straight to bed. When asked he denies SI/HI, AH/VH but does report still feeling anxious. He is cooperative for his evening medications. He keeps to his room and is isolative this shift interacting very minimally with others. S/I, H/I: Denies A/VH: Denies Sleep: See sleep assessment, currently sleeping ADL's: Independent Group attendance: No groups this shift Were Meds taken: Yes Any med S/E: None noted or observed Mental Status Exam Appearance: Unkempt Eye contact: Direct Behavior: Cooperative, guarded when asked questions r/t diagnosis Speech: Normal rate and rhythm, minimal answers Mood: Anxious Affect: Flat Thought process: Linear Thought Content: Anxious keeps to himself and isolates because of this, this evening. Cognition: A/Ox4 Insight: Poor Judgment: Poor Interventions PRN's used: Ativan, Nicotine Lozenge Therapeutic interventions: 1:1 assessment, establishment of rapport, maintained safe therapeutic milieu, provided active listening with positive feedback, provided medication education, monitored for change in behavior and provided needed interventions. Q 15 minute safety checks. Restraints/seclusion/emergency medication: N/A Justification of Continued Inpatient Treatment: Pt. placed on a 5250 r/t ongoing psychotic s/s and delusions per Dr. Cardenas. Continued therapeutic support and medication management needed to provide stabilization, prevent decompensation, improve coping mechanisms decreasing risk to patient and re-admittance.
[2018-11-23] MEDS: atorvastatin 20mg tablet PO SCH (07:18)
[2018-11-23] MEDS: buprenorphine/naloxone 2-0.5mg sublingual tablet SL SCH ×2 (07:18→21:14)
[2018-11-23] MEDS: clonazePAM 1mg tablet PO SCH (07:19)
[2018-11-23] MEDS: lisinopril 20mg tablet PO SCH (07:21)
[2018-11-23] MEDS: clozapine 25mg tablet PO SCH (07:24)
[2018-11-23 08:00] VITALS: BP 109/64
[2018-11-23] MEDS: NICOTINE POLACRILEX 2 MG LOZENGE BC PRN ×2 (08:59→17:27)
--- NOTE | 2018-11-23 16:56 | NUR ---
Nursing Progress Note: Aric Monreal Legal hold: 5250 expires 12/01 Client on voluntary/involuntary status for DTS Report received from Elisa THURSTON Why are they here: Patient was brought into the ED by police on a 5150 hold for grave disability and danger to self. He has a history of schizophrenia. Patient was attempting to break into his neighbor's car because he believes that someone was in there needing help. Pt. also saying he was seeing demons, and left all the burners on in his house. Pt. had been throwing away phones that his mother was getting him and he put his mother's phone in the microwave because he was paranoid that he was being listened to. He reports insomnia X3 days. Assessment: What has happened this shift: Patient is in his room at change of shift. Woke for medications, assessment and breakfast, Compliant with care and medications. Received prn of Nicotine Lozenge at 0900 and was observed on the unit watching TV. Client not very social with peers but presents no behavioral issues. Client went to group on [employer] this am. Client has been visible on the unit but tends to isolate and be withdrawn. No behavioral issues as of this writing. Client spent the afternoon resting in bed with eyes closed and even, unlabored respirations. S/I, H/I: Denies A/VH: Denies Sleep: ADL's: Independent Group attendance:no Were Meds taken: Yes Any med S/E: None noted or observed Mental Status Exam Appearance: Unkempt Eye contact: Direct Behavior: Cooperative, guarded when asked questions r/t diagnosis Speech: Normal rate and rhythm, minimal answers Mood: Anxious Affect: Flat Thought process: Linear Thought Content: Anxious keeps to himself and isolates because of this, this evening. Cognition: A/Ox4 Insight: Poor Judgment: Poor Interventions PRN's used: Nicotine lozenge Therapeutic interventions: 1:1 assessment, establishment of rapport, maintained safe therapeutic milieu, provided active listening with positive feedback, provided medication education, monitored for change in behavior and provided needed interventions. Q 15 minute safety checks. Restraints/seclusion/emergency medication: N/A Justification of Continued Inpatient Treatment: Pt. placed on a 5250 r/t ongoing psychotic s/s and delusions per Dr. Cardenas. Continued therapeutic support and medication management needed to provide stabilization, prevent decompensation, improve coping mechanisms decreasing risk to patient and re-admittance.
[2018-11-23] MEDS: acetaminophen 325mg tablet PO PRN (19:59)
[2018-11-23 20:10] VITALS: BP 126/61
[2018-11-23] MEDS: carBAMazepine 100mg chewable tablet PO SCH (21:14)
[2018-11-23] MEDS: CLOZAPINE 25 MG oral disintegrating tablet PO SCH (21:14)
[2018-11-23] MEDS: clozapine 100mg tablet PO SCH (21:14)
[2018-11-23 21:16] VITALS: BP 110/63
[2018-11-24 02:16] VITALS: BP 115/62
[2018-11-24] MEDS: acetaminophen 325mg tablet PO PRN (02:29)
--- NOTE | 2018-11-24 02:30 | NUR ---
Nursing Progress Note: Legal hold: 5250 expires 12/01 Client on voluntary/involuntary status for DTS Report received from ELVIA Oseguera with use of SBAR. Why are they here: Patient was brought into the ED by police on a 5150 hold for grave disability and danger to self. He has a history of schizophrenia. Patient was attempting to break into his neighbor's car because he believes that someone was in there needing help. Pt. also saying he was seeing demons, and left all the burners on in his house. Pt. had been throwing away phones that his mother was getting him and he put his mother's phone in the microwave because he was paranoid that he was being listened to. He reports insomnia X3 days. Assessment: What has happened this shift: Patient in his room at change of shift. Patient presents as irritable and short with staff. Not really wanting to talk and states "Are you done?" before assessment was over. Patient does reports "aches" but denies pain itself. It is later noted during vital signs that patient has a fever of 101.8, aide notifies this RN. Temperature is taken again after patient no longer drinking hot tea and it is noted to be 100.8. Dr. Trammell is notified. He recommends to monitor patients fever and to give Tylenol. Tylenol 650 mg is given at 1959. Approximately an hour after Tylenol administration temperature and vital signs are taken again. Temp is lowered to 99.5, and HR has dropped to 109, patient denies aches to his body at this time. Patient is awoken around 0200 to reassess his vitals, Temp is 99.6, HR is 90 with BP of 115/62. Patient again denies aches, but does request a dose of Tylenol. Tylenol 650 mg is administered at 0229. Patient is noted to be sleeping comfortably in bed, RR are even and unlabored. Patient is compliant this shift with HS medications. S/I, H/I: Denies A/VH: Denies Sleep: See sleep assessment, currently sleeping ADL's: Independent Group attendance: No groups this shift Were Meds taken: Yes Any med S/E: None noted or observed Mental Status Exam Appearance: Unkempt Eye contact: Direct Behavior: Cooperative, guarded when asked questions r/t diagnosis Speech: Normal rate and rhythm, minimal answers Mood: Irritable, short with staff Affect: Flat Thought process: Linear Thought Content: Patient not feeling well. Describes "aches" Cognition: A/Ox4 Insight: Poor Judgment: Poor Interventions PRN's used: Tylenol Therapeutic interventions: 1:1 assessment, establishment of rapport, maintained safe therapeutic milieu, provided active listening with positive feedback, provided medication education, monitored for change in behavior and provided needed interventions. Q 15 minute safety checks. Restraints/seclusion/emergency medication: N/A Justification of Continued Inpatient Treatment: Pt. placed on a 5250 r/t ongoing psychotic s/s and delusions per Dr. Cardenas. Continued therapeutic support and medication management needed to provide stabilization, prevent decompensation, improve coping mechanisms decreasing risk to patient and re-admittance.
[2018-11-24] MEDS: NICOTINE POLACRILEX 2 MG LOZENGE BC PRN (07:30)
[2018-11-24 07:35] VITALS: BP 115/77
[2018-11-24] MEDS: clozapine 25mg tablet PO SCH (08:11)
[2018-11-24] MEDS: clonazePAM 1mg tablet PO SCH (08:11)
[2018-11-24] MEDS: atorvastatin 20mg tablet PO SCH (08:11)
[2018-11-24] MEDS: buprenorphine/naloxone 2-0.5mg sublingual tablet SL SCH ×2 (08:11→20:57)
[2018-11-24] MEDS: lisinopril 20mg tablet PO SCH (08:12)
--- NOTE | 2018-11-24 15:28 | NUR ---
NURSING PROGRESS NOTE: Legal hold: 525 expires 12/01 Client on voluntary/involuntary status for DTS Report received from ELVIA Pérez with use of SBAR. Why are they here: Patient was brought into the ED by police on a 5150 hold for grave disability and danger to self. He has a history of schizophrenia. Patient was attempting to break into his neighbor's car because he believes that someone was in there needing help. Pt. also saying he was seeing demons, and left all the burners on in his house. Pt. had been throwing away phones that his mother was getting him and he put his mother's phone in the microwave because he was paranoid that he was being listened to. He reports insomnia X3 days. Assessment: What has happened this shift: The patient was awake at change of shift and then went back to bed before breakfast. He was up for breakfast and meals with peers but sits by himself. He denies AH, SI and is med compliant. He is slightly irritable yet cooperative. He was awake most of morning then the rest of day sleeping soundly. He did go outside to [employer] in the morning. He did not have a temp during morning vitals and reported to nurse "I feel fine." S/I, H/I: Denies A/VH: Denies Sleep: Napped all afternoon ADL's: Independent Group [facility] Were Meds taken: Yes Any med S/E: None noted or observed Mental Status Exam Appearance: Unkempt Eye contact: Direct Behavior: Cooperative, guarded when asked questions r/t diagnosis Speech: Normal rate and rhythm, minimal answers Mood: Irritable Affect: Blunted Thought process: Linear Thought Content: food, going outside, temperature Cognition: Alert Insight: Poor Judgment: Poor Interventions PRN's used: Elpidio Claudia x1 Therapeutic interventions: 1:1 assessment, establishment of rapport, maintained safe therapeutic milieu, provided active listening with positive feedback, provided medication education, monitored for change in behavior and provided needed interventions. Q 15 minute safety checks. Restraints/seclusion/emergency medication: N/A Justification of Continued Inpatient Treatment: Pt. placed on a 5250 r/t ongoing psychotic s/s and delusions per Dr. Cardenas. Continued therapeutic support and medication management needed to provide stabilization, prevent decompensation, improve coping mechanisms decreasing risk to patient and re-admittance.
[2018-11-24 20:11] VITALS: BP 113/66
[2018-11-24] MEDS: clozapine 100mg tablet PO SCH (20:58)
[2018-11-24] MEDS: CLOZAPINE 25 MG oral disintegrating tablet PO SCH (20:58)
[2018-11-24] MEDS: carBAMazepine 100mg chewable tablet PO SCH (21:00)
--- NOTE | 2018-11-25 03:28 | NUR ---
Nursing Progress Note: Legal hold: 525 expires 12/01 Client on voluntary/involuntary status for DTS Report received from ELVIA Olivo with use of SBAR. Why are they here: Patient was brought into the ED by police on a 515 hold for grave disability and danger to self. He has a history of schizophrenia. Patient was attempting to break into his neighbor's car because he believes that someone was in there needing help. Pt. also saying he was seeing demons, and left all the burners on in his house. Pt. had been throwing away phones that his mother was getting him and he put his mother's phone in the microwave because he was paranoid that he was being listened to. He reports insomnia X3 days. Assessment: What has happened this shift: Patient in his room in bed at change of shift. He presents as irritable but is cooperative. He denies SI/HI, VH/AH this shift. He reports "feeling better" and "just slept all day". Then states "Hopefully I'll be better by tomorrow." Patients vital signs are stable this evening and he has no fever. He keeps to his room, mainly sleeping this evening. Patient is compliant for HS medications. S/I, H/I: Denies A/VH: Denies Sleep: See sleep assessment, currently sleeping ADL's: Independent Group attendance: No groups this shift Were Meds taken: Yes Any med S/E: None noted or observed Mental Status Exam Appearance: Unkempt Eye contact: Direct Behavior: Cooperative, guarded when asked questions r/t diagnosis Speech: Normal rate and rhythm, minimal answers Mood: Irritable Affect: Flat Thought process: Linear Thought Content: Patient takes about "feeling better" Cognition: A/Ox4 Insight: Poor Judgment: Poor Interventions PRN's used: None Therapeutic interventions: 1:1 assessment, establishment of rapport, maintained safe therapeutic milieu, provided active listening with positive feedback, provided medication education, monitored for change in behavior and provided needed interventions. Q 15 minute safety checks. Restraints/seclusion/emergency medication: N/A Justification of Continued Inpatient Treatment: Pt. placed on a 5250 r/t ongoing psychotic s/s and delusions per Dr. Cardenas. Continued therapeutic support and medication management needed to provide stabilization, prevent decompensation, improve coping mechanisms decreasing risk to patient and re-admittance.
[2018-11-25 07:58] VITALS: BP 125/77
[2018-11-25] MEDS: clozapine 25mg tablet PO SCH (08:06)
[2018-11-25] MEDS: buprenorphine/naloxone 2-0.5mg sublingual tablet SL SCH ×2 (08:07→21:14)
[2018-11-25] MEDS: lisinopril 20mg tablet PO SCH (08:07)
[2018-11-25] MEDS: atorvastatin 20mg tablet PO SCH (08:07)
[2018-11-25] MEDS: clonazePAM 1mg tablet PO SCH (08:07)
[2018-11-25] MEDS: NICOTINE POLACRILEX 2 MG LOZENGE BC PRN (12:11)
--- NOTE | 2018-11-25 14:34 | NUR ---
Reassessment: Pt continues meeting nutrient needs with documented 75-100% PO intake on regular diet. [facility] 11/24. No nutrition diagnosis at this time. Will continue to follow. Recommendations: 1) Continue regular diet 2) Bowel care PRN 3) Weekly weights Addendum: 11/25/18 at [address] Amended: Links added.
--- NOTE | 2018-11-25 17:12 | NUR ---
[place] PROGRESS NOTE: Legal hold: 5249 expires 12/01 Client on voluntary/involuntary status for DTS Report received from ELVIA Lopes with use of SBAR. Why are they here: Patient was brought into the ED by police on a 515 hold for grave disability and danger to self. He has a history of schizophrenia. Patient was attempting to break into his neighbor's car because he believes that someone was in there needing help. Pt. also saying he was seeing demons, and left all the burners on in his house. Pt. had been throwing away phones that his mother was getting him and he put his mother's phone in the microwave because he was paranoid that he was being listened to. He reports insomnia X3 days. Assessment: What has happened this shift: The patient was awake at change of shift and then went back to bed after breakfast. He was up for breakfast and meals with peers but sits by himself. He denies AH, SI and is med compliant. He is slightly irritable yet cooperative. He was awake most of morning then the rest of day sleeping soundly. Stated he is here to adjust his Clozaril. He stated, "I feel fine today, just kind of sleepy." S/I, H/I: Denies A/VH: Denies Sleep: Napped all afternoon ADL's: Independent Group attendance: None Were Meds taken: Yes Any med S/E: None noted or observed Mental Status Exam Appearance: Unkempt Eye contact: Direct Behavior: Cooperative, guarded Speech: Normal rate and rhythm, minimal answers Mood: Irritable Affect: Blunted Thought process: Linear Thought Content: medications Cognition: Alert Insight: Poor Judgment: Poor Interventions PRN's used: Elpidio Claudia x1 Therapeutic interventions: 1:1 assessment, establishment of rapport, maintained safe therapeutic milieu, provided active listening with positive feedback, provided medication education, monitored for change in behavior and provided needed interventions. Q 15 minute safety checks. Restraints/seclusion/emergency medication: N/A Justification of Continued Inpatient Treatment: Pt. placed on a 5250 r/t ongoing psychotic s/s and delusions per Dr. Cardenas. Continued therapeutic support and medication management needed to provide stabilization, prevent decompensation, improve coping mechanisms decreasing risk to patient and re-admittance.
[2018-11-25 19:00] VITALS: BP 101/65
[2018-11-25] MEDS ORDERED: CLOZAPINE 25 MG oral disintegrating tablet PO SCH (21:00)
[2018-11-25] MEDS: temazepam 15mg capsule PO PRN (21:14)
[2018-11-25] MEDS: carBAMazepine 100mg chewable tablet PO SCH (21:16)
[2018-11-25] MEDS: clozapine 100mg tablet PO SCH (21:20)
--- NOTE | 2018-11-26 00:22 | NUR ---
Nursing Progress Note: Legal hold: 525 expires 12/01 Client on voluntary/involuntary status for DTS Report received from ELVIA Oilvo with use of SBAR. Why are they here: Patient was brought into the ED by police on a 5150 hold for grave disability and danger to self. He has a history of schizophrenia. Patient was attempting to break into his neighbor's car because he believes that someone was in there needing help. Pt. also saying he was seeing demons, and left all the burners on in his house. Pt. had been throwing away phones that his mother was getting him and he put his mother's phone in the microwave because he was paranoid that he was being listened to. He reports insomnia X3 days. Assessment: What has happened this shift: Patient laying in his room in bed in the dark. He is pleasant, cooperative for an assessment. He reports his day and mood as "Fine". He denies SI/HI. AH/VH. He isolates to his room the whole shift, not interacting with others. He is compliant with HS medications, and continues to remain in his bed after medication administration. S/I, H/I: Denies A/VH: Denies Sleep: See sleep assessment, currently sleeping ADL's: Independent Group attendance: No groups this shift Were Meds taken: Yes Any med S/E: None noted or observed Mental Status Exam Appearance: Unkempt Eye contact: Direct Behavior: Cooperative, guarded when asked questions r/t diagnosis Speech: Normal rate and rhythm, minimal answers Mood: "Fine" Affect: Flat Thought process: Linear Thought Content: Patient reports "resting" today Cognition: A/Ox4 Insight: Poor Judgment: Poor Interventions PRN's used: None Therapeutic interventions: 1:1 assessment, establishment of rapport, maintained safe therapeutic milieu, provided active listening with positive feedback, provided medication education, monitored for change in behavior and provided needed interventions. Q 15 minute safety checks. Restraints/seclusion/emergency medication: N/A Justification of Continued Inpatient Treatment: Pt. placed on a 5250 r/t ongoing psychotic s/s and delusions per Dr. Cardenas. Continued therapeutic support and medication management needed to provide stabilization, prevent decompensation, improve coping mechanisms decreasing risk to patient and re-admittance.
[2018-11-26 08:00] VITALS: BP 120/80
[2018-11-26] MEDS ORDERED: clozapine 25mg tablet PO SCH (08:00)
[2018-11-26] MEDS: clonazePAM 1mg tablet PO SCH (08:08)
[2018-11-26] MEDS: atorvastatin 20mg tablet PO SCH (08:08)
[2018-11-26] MEDS: lisinopril 20mg tablet PO SCH (08:09)
[2018-11-26] MEDS: buprenorphine/naloxone 2-0.5mg sublingual tablet SL SCH ×2 (08:09→21:26)
[2018-11-26] MEDS: hydrOXYzine 25 MG tablet PO PRN (12:53)
[2018-11-26] MEDS: NICOTINE POLACRILEX 2 MG LOZENGE BC PRN ×2 (17:08→21:27)
--- NOTE | 2018-11-26 17:18 | NUR ---
Nursing Progress Note: Legal hold: 525 expires 12/01 Client on involuntary status for DTS Report received from BERTRAND Swanson with use of SBAR. Why are they here: Patient was brought into the ED by police on a 5150 hold for grave disability and danger to self. He has a history of schizophrenia. Patient was attempting to break into his neighbor's car because he believes that someone was in there needing help. Pt. also saying he was seeing demons, and left all the burners on in his house. Pt. had been throwing away phones that his mother was getting him and he put his mother's phone in the microwave because he was paranoid that he was being listened to. He reports insomnia X3 days. Assessment: What has happened this shift: Pt was sleeping at the change of shift. He was cooperative with assessment and compliant with medication administration. He reported, "slept good." He denied depression, SI, and A/V H. Before lunch he reported anxiety and Atarax was administered. He attended the morning group. He was up for all meals and watched TV in the group room. S/I, H/I: Denies A/VH: Denies Sleep: Reported, slept good ADL's: Independent Group attendance: Yes Were Meds taken: Yes Any med S/E: Stated he was tired from the medications Mental Status Exam Appearance: wearing plaid pajama pants and a t-shirt. Eye contact: Direct Behavior: Cooperative Speech: Normal rate and rhythm Mood: "Fine" Affect: Flat Thought process: Linear Thought Content: Wants to go home Cognition: A/Ox4 Insight: Poor Judgment: Poor Interventions PRN's used: Atarax Therapeutic interventions: 1:1 therapeutic assessment, establishment of rapport, maintained safe therapeutic milieu, provided active listening with positive feedback, provided medication education, administration and monitored for effects, monitored for change in behavior, and maintained Q 15 minute safety checks. Restraints/seclusion/emergency medication: N/A Justification of Continued Inpatient Treatment: Pt. placed on a 5250 r/t ongoing psychotic s/s and delusions per Dr. Cardenas. Continued therapeutic support and medication management needed to provide stabilization, prevent decompensation, improve coping mechanisms decreasing risk to patient and re-admittance.
[2018-11-26 19:00] VITALS: BP 98/53
[2018-11-26] MEDS: carBAMazepine 100mg chewable tablet PO SCH (21:25)
--- NOTE | 2018-11-26 22:30 | NUR ---
Nursing Progress Note: Legal hold: 5250 expires 12/01 Client on involuntary status for DTS Report received from ELVIA Olivo with use of SBAR. Why are they here: Patient was brought into the ED by police on a 5150 hold for grave disability and danger to self. He has a history of schizophrenia. Patient was attempting to break into his neighbor's car because he believes that someone was in there needing help. Pt. also saying he was seeing demons, and left all the burners on in his house. Pt. had been throwing away phones that his mother was getting him and he put his mother's phone in the microwave because he was paranoid that he was being listened to. He reports insomnia X3 days. Assessment: What has happened this shift: Patient self isolates in his room. He is laying in bed at shift change. The patient is alert and well oriented. Patient states "I'm hibernating, I'm not a social person." The patient admits to depression. He denies S/I or H/I. He denies voices. Patient exhibits a flat affect. He is medication compliant. The patients father called but patient denies to talk to dad. The father tells this advertising copy writer that his son gets angry each time they visit. The patient doesn't mention any ill thought towards his parents. The patient states he is anxious to go home. His only complaint anxiety on occasion. S/I, H/I: Denies A/VH: Denies Sleep: Sleeping early after shift change. ADL's: Independent Group attendance: Yes Were Meds taken: Yes Any med S/E: Stated he was tired from the medications Mental Status Exam Appearance: wearing plaid pajama pants and a t-shirt. Eye contact: Direct Behavior: Cooperative Speech: Normal rate and rhythm Mood: Patient states he is feeling good. Affect: Flat Thought process: Linear Thought Content: Wants to go home Cognition: A/Ox4 Insight: Poor Judgment: Poor Interventions PRN's used: Nicotine lozenge, Restoril. Therapeutic interventions: 1:1 therapeutic assessment, establishment of rapport, maintained safe therapeutic milieu, provided active listening with positive feedback, provided medication education, administration and monitored for effects, monitored for change in behavior, and maintained Q 15 minute safety checks. Restraints/seclusion/emergency medication: N/A Justification of Continued Inpatient Treatment: Pt. placed on a 5250 r/t ongoing psychotic s/s and delusions per Dr. Cardenas. Continued therapeutic support and medication management needed to provide stabilization, prevent decompensation, improve coping mechanisms decreasing risk to patient and re-admittance.
[2018-11-26] MEDS: clozapine 100mg tablet PO SCH (23:00)
[2018-11-26] MEDS: temazepam 15mg capsule PO PRN (23:02)
[2018-11-27 08:00] VITALS: BP 132/87
[2018-11-27 08:20] LABS: BASOPHILS % (AUTO) 0.3 % (0-1); EOSINOPHILS # (AUTO) 0.2 X10'3 (0-0.9); EOSINOPHILS % (AUTO) 2.7 % (0-6); HEMATOCRIT 46.8 % (42.0-52.0); LYMPHOCYTES # (AUTO) 2.4 X10'3 (1.1-4.8); LYMPHOCYTES % (AUTO) 25.9 % (21-51); MEAN CORPUSCULAR HEMOGLOBIN 29.2 PG (27.0-31.0); MEAN CORPUSCULAR HGB CONC 34.2 g/dL (33.0-36.5); MEAN CORPUSCULAR VOLUME 85.4 FL (78-98); MEAN PLATELET VOLUME 6.9 FL (7.4-10.4); MONOCYTES # (AUTO) 0.6 X10'3 (0-0.9); MONOCYTES % (AUTO) 6.7 % (2-12); NEUTROPHILS % (AUTO) 64.4 % (42-75); PLATELET COUNT 215 X10'3 (140-440); RED BLOOD COUNT 5.48 X10'6 (4.70-6.10); RED CELL DISTRIBUTION WIDTH 13.2 % (11.5-14.5); WHITE BLOOD COUNT 9.3 X10'3 (4.5-11.0)
[2018-11-27] MEDS: clozapine 25mg tablet PO SCH (08:28)
[2018-11-27] MEDS: clonazePAM 1mg tablet PO SCH (08:28)
[2018-11-27] MEDS: lisinopril 20mg tablet PO SCH (08:28)
[2018-11-27] MEDS: buprenorphine/naloxone 2-0.5mg sublingual tablet SL SCH ×2 (08:29→20:49)
[2018-11-27] MEDS: atorvastatin 20mg tablet PO SCH (08:29)
[2018-11-27] MEDS: NICOTINE POLACRILEX 2 MG LOZENGE BC PRN (12:54)
--- NOTE | 2018-11-27 16:01 | NUR ---
Nursing Progress Note: Legal hold: 5250 expires 12/01 Client on involuntary status for DTS Report received from ELVIA Lopes with use of SBAR. Why are they here: Patient was brought into the ED by police on a 515 hold for grave disability and danger to self. He has a history of schizophrenia. Patient was attempting to break into his neighbor's car because he believes that someone was in there needing help. Pt. also saying he was seeing demons, and left all the burners on in his house. Pt. had been throwing away phones that his mother was getting him and he put his mother's phone in the microwave because he was paranoid that he was being listened to. He reports insomnia X3 days. Assessment: What has happened this shift: The patient was asleep at change of shift. He got up for breakfast and other meals and then isolated to his room and slept soundly most of the day. he is depressed and at times irritable but is cooperative. He is med compliant and eating well. Has no physical complaints. S/I, H/I: Denies A/VH: Denies Sleep: Sleeps throughout day ADL's: Independent Group attendance: No Were Meds taken: Yes Any med S/E: Stated he was tired from the medications Mental Status Exam Appearance: slightly disheveled Eye contact: Direct Behavior: Cooperative Speech: Normal rate and rhythm Mood: depressed Affect: Flat Thought process: Linear Thought Content: Wants to go home Cognition: A/Ox4 Insight: Poor Judgment: Poor Interventions PRN's used: Nicotine lozenge Therapeutic interventions: 1:1 therapeutic assessment, establishment of rapport, maintained safe therapeutic milieu, provided active listening with positive feedback, provided medication education, administration and monitored for effects, monitored for change in behavior, and maintained Q 15 minute safety checks. Restraints/seclusion/emergency medication: N/A Justification of Continued Inpatient Treatment: Pt. placed on a 5250 r/t ongoing psychotic s/s and delusions per Dr. Cardenas. Continued therapeutic support and medication management needed to provide stabilization, prevent decompensation, improve coping mechanisms decreasing risk to patient and re-admittance.
[2018-11-27 19:24] VITALS: BP 107/67
[2018-11-27] MEDS: clozapine 100mg tablet PO SCH (20:49)
[2018-11-27] MEDS: carBAMazepine 100mg chewable tablet PO SCH (20:49)
--- NOTE | 2018-11-28 00:22 | NUR ---
Nursing Progress Note: Legal hold: 5250 Client on voluntary/involuntary status for DTS Report received from ELVIA Olivo with use of SBAR. Why are they here: Patient was brought into the ED by police on a 5150 hold for grave disability and danger to self. He has a history of schizophrenia. Patient was attempting to break into his neighbor's car because he believes that someone was in there needing help. Pt. also saying he was seeing demons, and left all the burners on in his house. Pt. had been throwing away phones that his mother was getting him and he put his mother's phone in the microwave because he was paranoid that he was being listened to. He reports insomnia X3 days. Assessment: What has happened this shift: Pt in TV room at change of shift; attended HS snack then returned to room to rest. He is cooperative with assessment but reluctant to discuss his diagnosis. States he is "fine" and "getting better" but will not elaborate further. Pt retired to bed shortly after medication administration. S/I, H/I: Denies A/VH: Denies Sleep: See sleep assessment ADL's: Independent Group attendance: N/A Were Meds taken: Yes Any med S/E: None reported nor observed Mental Status Exam Appearance: Street clothes with nonskid socks Eye contact: Intermittent Behavior: Cooperative, guarded when asked questions r/t diagnosis Speech: Normal rate and rhythm, minimal answers Mood: "Fine" Affect: Flat Thought process: Linear Thought Content: "I'm just getting better, yeah know" Cognition: A/Ox3 (not to time) Insight: Poor Judgment: Poor Interventions PRN's used: None Therapeutic interventions: 1:1 assessment, establishment of rapport, maintained safe therapeutic milieu, provided active listening with positive feedback, provided medication education, monitored for change in behavior and provided needed interventions. Q 15 minute safety checks. Restraints/seclusion/emergency medication: N/A Justification of Continued Inpatient Treatment: Pt. placed on a 5250 r/t ongoing psychotic s/s and delusions per Dr. Cardenas. Continued therapeutic support and medication management needed to provide stabilization, prevent decompensation, improve coping mechanisms decreasing risk to patient and re-admittance.
[2018-11-28] MEDS: temazepam 15mg capsule PO PRN (01:30)
[2018-11-28 07:56] VITALS: BP 130/81
[2018-11-28] MEDS: clozapine 25mg tablet PO SCH (08:21)
[2018-11-28] MEDS: atorvastatin 20mg tablet PO SCH (08:22)
[2018-11-28] MEDS: clonazePAM 1mg tablet PO SCH (08:22)
[2018-11-28] MEDS: buprenorphine/naloxone 2-0.5mg sublingual tablet SL SCH ×2 (08:22→21:06)
[2018-11-28] MEDS: lisinopril 20mg tablet PO SCH (08:23)
[2018-11-28] MEDS: NICOTINE POLACRILEX 2 MG LOZENGE BC PRN ×2 (10:41→17:01)
--- NOTE | 2018-11-28 17:18 | NUR ---
Nursing Progress Note: Legal hold: 5250 expires 12/01 Client on involuntary status for DTS Report received from ELVIA Serrano with use of SBAR. Why are they here: Patient was brought into the ED by police on a 5150 hold for grave disability and danger to self. He has a history of schizophrenia. Patient was attempting to break into his neighbor's car because he believes that someone was in there needing help. Pt. also saying he was seeing demons, and left all the burners on in his house. Pt. had been throwing away phones that his mother was getting him and he put his mother's phone in the microwave because he was paranoid that he was being listened to. He reports insomnia X3 days. Assessment: What has happened this shift: The patient was asleep at change of shift. He got up for breakfast and other meals and then isolated to his room and slept soundly most of the day. He is depressed and at times irritable but is cooperative. He is med compliant and eating well. Has no physical complaints. Asks for fatimah ciro twice. S/I, H/I: Denies A/VH: Denies Sleep: Sleeps throughout day ADL's: Independent Group attendance: No Were Meds taken: Yes Any med S/E: Stated he was tired from the medications Mental Status Exam Appearance: slightly disheveled Eye contact: Direct Behavior: Cooperative Speech: Normal rate and rhythm Mood: depressed Affect: Flat Thought process: Linear Thought Content: Wants to go home Cognition: A/Ox4 Insight: Poor Judgment: Poor Interventions PRN's used: Nicotine lozenge Therapeutic interventions: 1:1 therapeutic assessment, establishment of rapport, maintained safe therapeutic milieu, provided active listening with positive feedback, provided medication education, administration and monitored for effects, monitored for change in behavior, and maintained Q 15 minute safety checks. Restraints/seclusion/emergency medication: N/A Justification of Continued Inpatient Treatment: Pt. placed on a 5250 r/t ongoing psychotic s/s and delusions per Dr. Cardenas. Continued therapeutic support and medication management needed to provide
[2018-11-28 20:23] VITALS: BP 100/68
[2018-11-28] MEDS: clozapine 100mg tablet PO SCH (21:06)
[2018-11-28] MEDS: carBAMazepine 100mg chewable tablet PO SCH (21:06)
--- NOTE | 2018-11-28 22:44 | NUR ---
Nursing Progress Note: Legal hold: 5250 Client on involuntary status for DTS Report received from ELVIA Olivo with use of SBAR. Why are they here: Patient was brought into the ED by police on a 5150 hold for grave disability and danger to self. He has a history of schizophrenia. Patient was attempting to break into his neighbor's car because he believes that someone was in there needing help. Pt. also saying he was seeing demons, and left all the burners on in his house. Pt. had been throwing away phones that his mother was getting him and he put his mother's phone in the microwave because he was paranoid that he was being listened to. He reports insomnia X3 days. Assessment: What has happened this shift: Pt in TV room at change of shift; parents came to visit but pt became upset with them and they were escorted out within 15 minutes of arrival. Pt isolated in room after parents left the unit. During 1:1, pt stated his parents were getting on his nerves but would not elaborate further. Pt denies all symptoms of his diagnosis but seems preoccupied and guarded about discussing his condition. Pt retired to bed shortly after medication administration. S/I, H/I: Denies A/VH: Denies Sleep: See sleep assessment ADL's: Independent Group attendance: N/A Were Meds taken: Yes Any med S/E: None reported nor observed Mental Status Exam Appearance: Street clothes with nonskid socks Eye contact: Intermittent Behavior: Cooperative, guarded when asked questions r/t diagnosis Speech: Normal rate and rhythm, minimal answers Mood: "Good" Affect: Flat Thought process: Linear Thought Content: Irritation with parents Cognition: A/Ox3 (not to time) Insight: Poor Judgment: Poor Interventions PRN's used: None Therapeutic interventions: 1:1 assessment, establishment of rapport, maintained safe therapeutic milieu, provided active listening with positive feedback, provided medication education, monitored for change in behavior and provided needed interventions. Q 15 minute safety checks. Restraints/seclusion/emergency medication: N/A Justification of Continued Inpatient Treatment: Pt. placed on a 5250 r/t ongoing psychotic s/s and delusions per Dr. Cardenas. Continued therapeutic support and medication management needed to provide stabilization, prevent decompensation, improve coping mechanisms decreasing risk to patient and re-admittance.
[2018-11-29 07:34] VITALS: BP 126/74
[2018-11-29] MEDS: buprenorphine/naloxone 2-0.5mg sublingual tablet SL SCH ×2 (07:57→20:19)
[2018-11-29] MEDS: clonazePAM 1mg tablet PO SCH (07:57)
[2018-11-29] MEDS: atorvastatin 20mg tablet PO SCH (07:57)
[2018-11-29] MEDS: lisinopril 20mg tablet PO SCH (07:58)
--- NOTE | 2018-11-29 16:18 | NUR ---
Nursing Progress Note: [place] Legal hold: 5250 Client on involuntary status for DTS Report received from ELVIA Pérez with use of SBAR. Why are they here: Patient was brought into the ED by police on a 5150 hold for grave disability and danger to self. He has a history of schizophrenia. Patient was attempting to break into his neighbor's car because he believes that someone was in there needing help. Pt. also saying he was seeing demons, and left all the burners on in his house. Pt. had been throwing away phones that his mother was getting him and he put his mother's phone in the microwave because he was paranoid that he was being listened to. He reports insomnia X3 days. Assessment: What has happened this shift: Pt was sleeping at change of shift. He appears tired after breakfast, attributes it to medication side effect. This science writer also noticed excessive drooling while the pt sleeps. He reports sleeping well last night. He has a short blunt affect and is not interested in being interviewed. He allows a physical assessment. He denies any complaints this morning. Reports he had a "bad visit" yesterday with his parents, did not care to elaborate on that subject. No other concerns voiced at this time. S/I, H/I: Denies A/VH: Denies Sleep: 9hrs NOC ADL's: Independent Group attendance: Yes Were Meds taken: Yes Any med S/E: None reported nor observed Mental Status Exam Appearance: Street clothes with nonskid socks Eye contact: Intermittent Behavior: Cooperative, guarded/blocking when asked questions r/t diagnosis Speech: Normal rate and rhythm, short answers Mood: "Tired" Affect: flat, blunt Thought process: Linear Thought Content: sleep, meds Cognition: A/Ox4 Insight: Poor Judgment: Poor Interventions PRN's used: None Therapeutic interventions: 1:1 assessment, establishment of rapport, maintained safe therapeutic milieu, provided active listening with positive feedback, provided medication education, monitored for change in behavior and provided needed interventions. Q 15 minute safety checks. Restraints/seclusion/emergency medication: N/A Justification of Continued Inpatient Treatment: Pt. placed on a 5250 r/t ongoing psychotic s/s and delusions per Dr. Cardenas. Continued therapeutic support and medication management needed to provide stabilization, prevent decompensation, improve coping mechanisms decreasing risk to patient and re-admittance.
[2018-11-29 19:50] VITALS: BP 105/78
[2018-11-29] MEDS: clozapine 25mg tablet PO SCH (20:19)
[2018-11-29] MEDS: temazepam 15mg capsule PO PRN (20:19)
[2018-11-29] MEDS: carBAMazepine 100mg chewable tablet PO SCH (20:20)
--- NOTE | 2018-11-30 01:18 | NUR ---
Nursing Progress Note: [place] Legal hold: 5250 Client on involuntary status for DTS Report received from ELVIA Olivo with use of SBAR. Why are they here: Patient was brought into the ED by police on a 5150 hold for grave disability and danger to self. He has a history of schizophrenia. Patient was attempting to break into his neighbor's car because he believes that someone was in there needing help. Pt. also saying he was seeing demons, and left all the burners on in his house. Pt. had been throwing away phones that his mother was getting him and he put his mother's phone in the microwave because he was paranoid that he was being listened to. He reports insomnia X3 days. Assessment: What has happened this shift: Patient in bed following shift change. He is awake and well oriented. Patient exhibits a flat affect. He is labile but cooperative. He is easily redirected after becoming angry. Patient manifests paranoia with guarding. Some anxiety is present. He denies depression, S/I, or H/I. This patient has been medication compliant and is cooperative with this senior underwriter. S/I, H/I: Denies. A/VH: Denies. Sleep: Will tally in am. ADL's: Independent Group attendance: Yes, on day shift. Were Meds taken: Yes Any med S/E: None reported nor observed Mental Status Exam Appearance: Street clothes with nonskid socks Eye contact: Intermittent Behavior: Cooperative, guarded/blocking. Speech: Normal rate and rhythm, short answers Mood: Labile. Affect: Blunt. Thought process: Linear Thought Content: Wants to go home. Cognition: A/Ox4 Insight: Poor Judgment: Poor Interventions PRN's used: None Therapeutic interventions: 1:1 assessment, establishment of rapport, maintained safe therapeutic milieu, provided active listening with positive feedback, provided medication education, monitored for change in behavior and provided needed interventions. Q 15 minute safety checks. Restraints/seclusion/emergency medication: N/A Justification of Continued Inpatient Treatment: Pt. placed on a 5250 r/t ongoing psychotic s/s and delusions per Dr. Cardenas. Continued therapeutic support and medication management needed to provide stabilization, prevent decompensation, improve coping mechanisms decreasing risk to patient and re-admittance.
[2018-11-30 07:50] VITALS: BP 124/85
[2018-11-30] MEDS: clonazePAM 1mg tablet PO SCH (07:53)
[2018-11-30] MEDS: atorvastatin 20mg tablet PO SCH (07:53)
[2018-11-30] MEDS: lisinopril 20mg tablet PO SCH (07:53)
[2018-11-30] MEDS: buprenorphine/naloxone 2-0.5mg sublingual tablet SL SCH ×2 (07:53→20:49)
--- NOTE | 2018-11-30 17:03 | NUR ---
Nursing Progress Note: [place] Legal hold: 5250 Client on involuntary status for DTS Report received from ELVIA Pérez with use of SBAR. Why are they here: Patient was brought into the ED by police on a 5150 hold for grave disability and danger to self. He has a history of schizophrenia. Patient was attempting to break into his neighbor's car because he believes that someone was in there needing help. Pt. also saying he was seeing demons, and left all the burners on in his house. Pt. had been throwing away phones that his mother was getting him and he put his mother's phone in the microwave because he was paranoid that he was being listened to. He reports insomnia X3 days. Assessment: What has happened this shift: Pt was sleeping at change of shift. He appears tired during breakfast and is wearing sunglasses. He reports sleeping well last night, denies nightmares. He reports he spoke with the doctor before breakfast and that he plans on going to group today to be more involved in his treatment. He was willing to talk about the visit with his parents that went poorly the day before yesterday. He reports that "They know how to press my buttons and they do all the time. They always laugh at me too." He reports this is upsetting to him and causes him to become angry and agitated. No other concerns voiced at this time. Dad (Yobani) called in the afternoon inquiring about the pt status and if there was any improvements, reports he and his are hesitant to visit as they do not want to upset the pt. S/I, H/I: Denies A/VH: Denies Sleep: 9.5 hrs NOC ADL's: Independent Group attendance: Yes Were Meds taken: Yes Any med S/E: None reported nor observed Mental Status Exam Appearance: Street clothes, sunglasses Eye contact: Direct Behavior: Cooperative Speech: Normal rate and rhythm Mood: "Fine" Affect: flat, blunt Thought process: Linear Thought Content: sleep, meds, parents Cognition: A/Ox4 Insight: Poor Judgment: Poor Interventions PRN's used: None Therapeutic interventions: 1:1 assessment, establishment of rapport, maintained safe therapeutic milieu, provided active listening with positive feedback, provided medication education, monitored for change in behavior and provided needed interventions. Q 15 minute safety checks. Restraints/seclusion/emergency medication: N/A Justification of Continued Inpatient Treatment: Pt. placed on a 5250 r/t ongoing psychotic s/s and delusions per Dr. Cardenas. Continued therapeutic support and medication management needed to provide stabilization, prevent decompensation, improve coping mechanisms decreasing risk to patient and re-admittance.
[2018-11-30 20:00] VITALS: BP 119/72
[2018-11-30] MEDS: carBAMazepine 100mg chewable tablet PO SCH (20:49)
[2018-11-30] MEDS: clozapine 25mg tablet PO SCH (20:50)
--- NOTE | 2018-11-30 22:18 | NUR ---
Nursing Progress Note: Legal hold: 5250 Client on involuntary status for DTS Report received from ELVIA Randle with use of SBAR. Why are they here: Patient was brought into the ED by police on a 5150 hold for grave disability and danger to self. He has a history of schizophrenia. Patient was attempting to break into his neighbor's car because he believes that someone was in there needing help. Pt. also saying he was seeing demons, and left all the burners on in his house. Pt. had been throwing away phones that his mother was getting him and he put his mother's phone in the microwave because he was paranoid that he was being listened to. He reports insomnia X3 days. Assessment: What has happened this shift: Pt sleeping at shift change and majority of shift, except to attend HS snack. States he feels tired. Pt would not elaborate on mental state, denying all symptoms and says he is "fine". He then continued to ask why he was here and what he needed to do to leave. Before RN could respond, pt stated "I'll get with the program so I can get out of here." Pt complaint with medications and went to bed shortly after administration. S/I, H/I: Denies A/VH: Denies Sleep: See Sleep Assessment ADL's: Independent Group attendance: N/A Were Meds taken: Yes Any med S/E: None reported; Fatigue Mental Status Exam Appearance: Street clothes, nonskid socks Eye contact: Intermittent Behavior: Cooperative Speech: Normal rate and rhythm Mood: "Fine" Affect: Flat Thought process: Linear Thought Content: sleep, meds, wants to leave Cognition: A/Ox4 Insight: Poor Judgment: Poor Interventions PRN's used: None Therapeutic interventions: 1:1 assessment, establishment of rapport, maintained safe therapeutic milieu, provided active listening with positive feedback, provided medication education, monitored for change in behavior and provided needed interventions. Q 15 minute safety checks. Restraints/seclusion/emergency medication: N/A Justification of Continued Inpatient Treatment: Pt. placed on a 5250 r/t ongoing psychotic s/s and delusions per Dr. Cardenas. Continued therapeutic support and medication management needed to provide stabilization, prevent decompensation, improve coping mechanisms decreasing risk to patient and re-admittance.
[2018-12-01 07:31] VITALS: BP 117/76
[2018-12-01] MEDS: atorvastatin 20mg tablet PO SCH (08:07)
[2018-12-01] MEDS: lisinopril 20mg tablet PO SCH (08:08)
[2018-12-01] MEDS: clonazePAM 1mg tablet PO SCH (08:08)
[2018-12-01] MEDS: buprenorphine/naloxone 2-0.5mg sublingual tablet SL SCH ×2 (08:08→21:00)
[2018-12-01] MEDS: NICOTINE POLACRILEX 2 MG LOZENGE BC PRN ×3 (08:52→21:05)
--- NOTE | 2018-12-01 11:09 | NUR ---
Reassessment: Pt continues meeting nutrient needs with documented 75-100% PO intake on regular diet. LBM 11/30, small. No nutrition diagnosis at this time. Will continue to follow. Recommendations: 1) Continue regular diet 2) Bowel care PRN 3) Weekly weights Addendum: 12/01/18 at 1110 by [address]en [address] Amended: Links added.
--- NOTE | 2018-12-01 18:15 | NUR ---
Nursing Progress Note: Legal hold: 5250 expires 12/01 Client on voluntary/involuntary status for DTS Report received from ELVIA Pérez with use of SBAR. Why are they here: Patient was brought into the ED by police on a 5150 hold for grave disability and danger to self. He has a history of schizophrenia. Patient was attempting to break into his neighbor's car because he believes that someone was in there needing help. Pt. also saying he was seeing demons, and left all the burners on in his house. Pt. had been throwing away phones that his mother was getting him and he put his mother's phone in the microwave because he was paranoid that he was being listened to. He reports insomnia X3 days. Assessment: What has happened this shift: Patient is observed sleeping at change of shift. He is woken for breakfast and takes his medications without issue. He states that he feels improvement with the clozaril and that his agitation has decreased. He states that his A/H are less and then retracts stating I never had S/H. Patient spends most of the day in bed however is observed walking the kraft with his sunglasses on. He is pleasant with each encounter. S/I, H/I: none reported A/VH: none reported Sleep: 7hrs NOC ADL's: Independent Group attendance: no Were Meds taken: yes Any med S/E: None noted or observed Mental Status Exam Appearance: appears tired, dressed in own clothing, disheveled Eye contact: direct Behavior: Cooperative Speech: soft tone, Normal rate and rhythm Mood: content Affect: flat Thought process: linear Thought Content: no delusional thought content presented to this RN Cognition: A/Ox4 Insight: Poor Judgment: Poor Interventions PRN's used: nicotine lozenges Therapeutic interventions: 1:1 assessment, establishment of rapport, maintained safe therapeutic milieu, provided active listening with positive feedback, provided medication education, monitored for change in behavior and provided needed interventions. Q 15 minute safety checks. Restraints/seclusion/emergency medication: N/A Justification of Continued Inpatient Treatment: Pt. placed on a 5250 r/t ongoing psychotic s/s and delusions per Dr. Cardenas. Continued therapeutic support and medication management needed to provide stabilization, prevent decompensation, improve coping mechanisms decreasing risk to patient and re-admittance.
[2018-12-01 20:00] VITALS: BP 103/60
[2018-12-01] MEDS: carBAMazepine 100mg chewable tablet PO SCH (20:59)
[2018-12-01] MEDS: temazepam 15mg capsule PO PRN (21:00)
[2018-12-01] MEDS: clozapine 25mg tablet PO SCH (21:03)
--- NOTE | 2018-12-02 03:03 | NUR ---
Nursing Progress Note: Legal hold: 5250 expires 12/01 Client on voluntary/involuntary status for DTS Report received from ELVIA Olivo with use of SBAR. Why are they here: Patient was brought into the ED by police on a 5150 hold for grave disability and danger to self. He has a history of schizophrenia. Patient was attempting to break into his neighbor's car because he believes that someone was in there needing help. Pt. also saying he was seeing demons, and left all the burners on in his house. Pt. had been throwing away phones that his mother was getting him and he put his mother's phone in the microwave because he was paranoid that he was being listened to. He reports insomnia X3 days. Assessment: Patient is supine in bed following shift change. He is self isolating. Patient states "I'm a loner." This patient denies H/I, S/I, or any hallucinations. Patient was labile on the previous access rep but is not now. He exhibits a flat affect. Patient has been medication compliant. S/I, H/I: None reported A/VH: None reported Sleep: Resting after shift change, will tally in am. ADL's: Independent Group attendance: No. Were Meds taken: Yes. Any med S/E: None noted or observed Mental Status Exam Appearance: Appears tired, dressed in own clothing, disheveled. Eye contact: Direct. Behavior: Cooperative however guarded. Speech: Quiet, normal rate and rhythm. Mood: Content Affect: Flat. Thought process: Linear. Thought Content: Patient states thoughts are normal. Cognition: A/Ox4 Insight: Poor Judgment: Poor Interventions PRN's used: nicotine lozenges Therapeutic interventions: 1:1 assessment, establishment of rapport, maintained safe therapeutic milieu, provided active listening with positive feedback, provided medication education, monitored for change in behavior and provided needed interventions. Q 15 minute safety checks. Restraints/seclusion/emergency medication: N/A Justification of Continued Inpatient Treatment: Pt. placed on a 5250 r/t ongoing psychotic s/s and delusions per Dr. Cardenas. Continued therapeutic support and medication management needed to provide stabilization, prevent decompensation, improve coping mechanisms decreasing risk to patient and re-admittance.
[2018-12-02 07:36] VITALS: BP 121/77
[2018-12-02] MEDS: atorvastatin 20mg tablet PO SCH (08:27)
[2018-12-02] MEDS: buprenorphine/naloxone 2-0.5mg sublingual tablet SL SCH ×2 (08:28→21:14)
[2018-12-02] MEDS: lisinopril 20mg tablet PO SCH (08:28)
[2018-12-02] MEDS: clonazePAM 1mg tablet PO SCH (08:28)
[2018-12-02] MEDS: LORazepam 1 MG tablet PO PRN (12:27)
[2018-12-02] MEDS: NICOTINE POLACRILEX 2 MG LOZENGE BC PRN ×2 (12:27→17:29)
--- NOTE | 2018-12-02 18:08 | NUR ---
Nursing Progress Note: Legal hold: [place] Client on voluntary/involuntary status for DTS Report received from Leigha Grover RN with use of SBAR. Why are they here: Patient was brought into the ED by police on a 5150 hold for grave disability and danger to self. He has a history of schizophrenia. Patient was attempting to break into his neighbor's car because he believes that someone was in there needing help. Pt. also saying he was seeing demons, and left all the burners on in his house. Pt. had been throwing away phones that his mother was getting him and he put his mother's phone in the microwave because he was paranoid that he was being listened to. He reports insomnia X3 days. Assessment: Patient is observed sleeping at change of shift. He wakes for breakfast and then returns to his room. He takes his medications without any issue. He smiles and laughs appropriately to jokes. He states that he slept well last night. RN reminded patient that this is a change from what he reported is his usual pattern. He smiled, chuckled, and stated it is! He is observed walking around occasionally and is not wearing his sunglasses. He reports feeling anxious once and requests PRN Ativan, administered. He does not actively engage with others but patients demeanor remains pleasant throughout the day with each interaction. S/I, H/I: None reported A/VH: denies Sleep: 8hrs NOC and rested during the day ADL's: Independent Group attendance: No. Were Meds taken: Yes. Any med S/E: None noted or observed Mental Status Exam Appearance: dressed in own clothing, disheveled. Eye contact: Direct. Behavior: Cooperative, still guarded but improved animation Speech: soft tone, normal rate and rhythm. Mood: Content Affect: restricted with occasional brightness Thought process: Linear. Thought Content: no delusional thought content expressed Cognition: A/Ox4 Insight: Poor Judgment: Poor Interventions PRN's used: nicotine lozenges, Ativan Therapeutic interventions: 1:1 assessment, establishment of rapport, maintained safe therapeutic milieu, provided active listening with positive feedback, provided medication education, monitored for change in behavior and provided needed interventions. Q 15 minute safety checks. Restraints/seclusion/emergency medication: N/A Justification of Continued Inpatient Treatment: Continued therapeutic support and medication management needed to provide stabilization, prevent decompensation, improve coping mechanisms decreasing risk to patient and re-admittance.
[2018-12-02 19:00] VITALS: BP 119/78
[2018-12-02] MEDS: carBAMazepine 100mg chewable tablet PO SCH (21:13)
[2018-12-02] MEDS: clozapine 25mg tablet PO SCH (21:14)
--- NOTE | 2018-12-03 00:25 | NUR ---
Nursing Progress Note: Legal hold: VOL Client on Voluntary status for DTS Report received from ELVIA Oseguera with use of SBAR. Why are they here: Patient was brought into the ED by police on a 5150 hold for grave disability and danger to self. He has a history of schizophrenia. Patient was attempting to break into his neighbor's car because he believes that someone was in there needing help. Pt. also saying he was seeing demons, and left all the burners on in his house. Pt. had been throwing away phones that his mother was getting him and he put his mother's phone in the microwave because he was paranoid that he was being listened to. He reports insomnia X3 days. Assessment: Patient is visiting his father in the group room following shift change. Patient became loud and agitated with his father. Security was called to the room to observe. Patient became less agitated. Once back in room patient states to this creative writer that his parents "are scheming against me." This patient denies hallucinations, he remains guarded however. This patient isolates in his room throughout the shift. He is cooperative with staff and medication compliant. S/I, H/I: None reported. A/VH: Denies. Sleep: 8hrs NOC and rested during the day ADL's: Independent. Group attendance: No. Were Meds taken: Yes. Any med S/E: None noted or observed Mental Status Exam Appearance: dressed in own clothing, disheveled. Eye contact: Direct. Behavior: Cooperative, still guarded. Speech: soft tone, normal rate and rhythm. Mood: Content Affect: Restricted with occasional brightness. Thought process: Linear. Thought Content: Patient fixates on getting out of here. Cognition: [place] X4. Insight: Poor Judgment: Poor Interventions PRN's used: Restoril Therapeutic interventions: 1:1 assessment, establishment of rapport, maintained safe therapeutic milieu, provided active listening with positive feedback, provided medication education, monitored for change in behavior and provided needed interventions. Q 15 minute safety checks. Restraints/seclusion/emergency medication: N/A Justification of Continued Inpatient Treatment: Continued therapeutic support and medication management needed to provide stabilization, prevent decompensation, improve coping mechanisms decreasing risk to patient and re-admittance.
[2018-12-03 08:00] VITALS: BP 119/82
[2018-12-03] MEDS: lisinopril 20mg tablet PO SCH (08:21)
[2018-12-03] MEDS: atorvastatin 20mg tablet PO SCH (08:21)
[2018-12-03] MEDS: buprenorphine/naloxone 2-0.5mg sublingual tablet SL SCH ×2 (08:21→21:01)
[2018-12-03] MEDS: clonazePAM 1mg tablet PO SCH (08:21)
[2018-12-03] MEDS: NICOTINE POLACRILEX 2 MG LOZENGE BC PRN ×3 (11:07→20:02)
[2018-12-03] MEDS: LORazepam 1 MG tablet PO PRN (13:41)
--- NOTE | 2018-12-03 16:54 | NUR ---
Nursing Progress Note: Legal hold: VOL Client on voluntary status for DTS Report received from BERTRAND Francis with use of SBAR. Why are they here: Patient was brought into the ED by police on a 5150 hold for grave disability and danger to self. He has a history of schizophrenia. Per admission note, pt was bothering a neighbor, disruptive, saying he was seeing demons, and left all the burners on in his house. He reported insomnia X3 days. Assessment: The pt was sleeping at the change of shift. He was compliant with medication administration. He cooperated with assessment. When asked about depression he stated, "not really depressed." He reported some anxiety in the morning, but his anxiety increased later in the day. He denied SI and A/V H. Pt had a constricted affect. He minimally responded to questions. Ativan administered for anxiety. S/I, H/I: Denies A/VH: Denies Sleep: Pt reported he slept well during the night ADL's: Independent Group attendance: No. Were Meds taken: Yes. Any med S/E: None noted or observed Mental Status Exam Appearance: Dressed in pajama bottoms and t-shirt Eye contact: Direct. Behavior: Cooperative Speech: Normal rate and rhythm. Mood: Anxious Affect: Constricted Thought process: Linear. Thought Content: He is thinking about going home Cognition: A/Ox4 Insight: Poor Judgment: Poor Interventions PRN's used: nicotine lozenges, Ativan Therapeutic interventions: 1:1 therapeutic assessment, establishment of rapport, maintained safe therapeutic milieu, provided active listening with positive feedback, provided medication education and monitored for effects, and monitored for change in behavior. Q 15 minute safety checks. Restraints/seclusion/emergency medication: N/A Justification of Continued Inpatient Treatment: Continued therapeutic support and medication management needed to provide stabilization, prevent decompensation, improve coping mechanisms decreasing risk to patient and re-admittance.
[2018-12-03 19:00] VITALS: BP 109/69
[2018-12-03] MEDS: clozapine 25mg tablet PO SCH (21:01)
[2018-12-03] MEDS: temazepam 15mg capsule PO PRN (21:01)
[2018-12-03] MEDS: carBAMazepine 100mg chewable tablet PO SCH (21:02)
--- NOTE | 2018-12-04 01:18 | NUR ---
Nursing Progress Note: Legal hold: VOL Client on voluntary status for DTS Report received from ELVIA Oseguera with use of SBAR. Why are they here: Patient was brought into the ED by police on a 5150 hold for grave disability and danger to self. He has a history of schizophrenia. Per admission note, pt was bothering a neighbor, disruptive, saying he was seeing demons, and left all the burners on in his house. He reported insomnia X3 days. Assessment: Patient is self isolating in his room following shift change. He is in bed but awake. Patient is well oriented. Patient exhibits a blunted affect. He is constricted. He does not present as labile tonight. His family did not visit. Patient states his goal is to go home. He denies S/I, H/I, or any hallucinations. Patient is not exhibiting any anger towards his parents this shift. This patient is medication compliant. Patient states he see's no value in group attendance. S/I, H/I: Denies A/VH: Denies Sleep: Will tally later in am. ADL's: Independent Group attendance: No. Were Meds taken: Yes. Any med S/E: None noted or observed Mental Status Exam Appearance: Dressed in pajama bottoms and t-shirt Eye contact: Direct. Behavior: Cooperative Speech: Normal rate and rhythm. Mood: Anxious Affect: Constricted Thought process: Linear. Thought Content: He is thinking about going home Cognition: A/Ox4 Insight: Poor Judgment: Poor Interventions PRN's used: Nicotine lozenge. Therapeutic interventions: 1:1 therapeutic assessment, establishment of rapport, maintained safe therapeutic milieu, provided active listening with positive feedback, provided medication education and monitored for effects, and monitored for change in behavior. Q 15 minute safety checks. Restraints/seclusion/emergency medication: N/A Justification of Continued Inpatient Treatment: Continued therapeutic support and medication management needed to provide stabilization, prevent decompensation, improve coping mechanisms decreasing risk to patient and re-admittance.
[2018-12-04] MEDS: buprenorphine/naloxone 2-0.5mg sublingual tablet SL SCH ×2 (07:27→20:58)
[2018-12-04] MEDS: atorvastatin 20mg tablet PO SCH (07:27)
[2018-12-04] MEDS: lisinopril 20mg tablet PO SCH (07:27)
[2018-12-04] MEDS: clonazePAM 1mg tablet PO SCH (07:28)
[2018-12-04 07:47] VITALS: BP 136/79
--- NOTE | 2018-12-04 16:21 | NUR ---
Nursing Progress Note: Ides Legal hold: VOL Client on voluntary status for DTS Report received from Leigha Grover RN with use of SBAR. Why are they here: Patient was brought into the ED by police on a 5150 hold for grave disability and danger to self. He has a history of schizophrenia. Per admission note, pt was bothering a neighbor, disruptive, saying he was seeing demons, and left all the burners on in his house. He reported insomnia X3 days. Assessment: Patient was resting in his bed to begin the shift. Client woke for medications as well as assessment. Client states, " I am doing ok this morning". After assessment, client was visible on unit and was more isolative. After lunch, client went to rest in his room and remains there as of this writing. He is resting with eyes closed and even, unlabored respirations. Client did state that he was able to speak with family and is, "making progress with them". Client would not elaborate when questioned regarding the statement. S/I, H/I: Denies A/VH: Denies Sleep: rested frequently this shift. ADL's: Independent Group attendance: No. Were Meds taken: Yes. Any med S/E: None noted or observed Mental Status Exam Appearance: Dressed in pajama bottoms and t-shirt Eye contact: Direct. Behavior: Cooperative Speech: Normal rate and rhythm. Mood: Anxious Affect: Constricted Thought process: Linear. Thought Content: wants to discharge Cognition: A/Ox4 Insight: Poor Judgment: Poor Interventions PRN's used: Therapeutic interventions: 1:1 therapeutic assessment, establishment of rapport, maintained safe therapeutic milieu, provided active listening with positive feedback, provided medication education and monitored for effects, and monitored for change in behavior. Q 15 minute safety checks. Restraints/seclusion/emergency medication: N/A Justification of Continued Inpatient Treatment: Continued therapeutic support and medication management needed to provide stabilization, prevent decompensation, improve coping mechanisms decreasing risk to patient and re-admittance.
[2018-12-04 19:57] VITALS: BP 103/64
[2018-12-04] MEDS: clozapine 25mg tablet PO SCH (20:58)
[2018-12-04] MEDS: carBAMazepine 100mg chewable tablet PO SCH (20:58)
[2018-12-04] MEDS: temazepam 15mg capsule PO PRN (20:59)
[2018-12-04] MEDS: NICOTINE POLACRILEX 2 MG LOZENGE BC PRN (20:59)
--- NOTE | 2018-12-05 03:14 | NUR ---
Nursing Progress Note: Ides Legal hold: VOL Client on voluntary status for DTS Report received from RN with use of SBAR. Why are they here: Patient was brought into the ED by police on a 5150 hold for grave disability and danger to self. He has a history of schizophrenia. Per admission note, pt was bothering a neighbor, disruptive, saying he was seeing demons, and left all the burners on in his house. He reported insomnia X3 days. Assessment: Patient self isolating in room. He is well oriented and pleasant. Patient expresses want to go home. Patient is not labile this evening. He is medication compliant and expresses an understanding of why he is here and his future goals. S/I, H/I: Denies A/VH: Denies Sleep: Patient sleeps easily. ADL's: Independent Group attendance: No. Were Meds taken: Yes. Any med S/E: None noted or observed Mental Status Exam Appearance: Dressed in pajama bottoms and t-shirt Eye contact: Direct. Behavior: Cooperative Speech: Normal rate and rhythm. Mood: Minor anxiety only. Affect: Constricted Thought process: Linear. Thought Content: wants to discharge Cognition: A/Ox4 Insight: Poor Judgment: Poor Interventions PRN's used: Therapeutic interventions: 1:1 therapeutic assessment, establishment of rapport, maintained safe therapeutic milieu, provided active listening with positive feedback, provided medication education and monitored for effects, and monitored for change in behavior. Q 15 minute safety checks. Restraints/seclusion/emergency medication: N/A Justification of Continued Inpatient Treatment: Continued therapeutic support and medication management needed to provide stabilization, prevent decompensation, improve coping mechanisms decreasing risk to patient and re-admittance.
[2018-12-05] MEDS: NICOTINE POLACRILEX 2 MG LOZENGE BC PRN ×3 (07:10→18:55)
[2018-12-05 07:22] LABS: BASOPHILS % (AUTO) 0.2 % (0-1); EOSINOPHILS # (AUTO) 0.2 X10'3 (0-0.9); EOSINOPHILS % (AUTO) 1.8 % (0-6); HEMATOCRIT 41.5 % (42.0-52.0); HEMOGLOBIN 14.2 g/dl (14.0-17.9); LYMPHOCYTES # (AUTO) 2.4 X10'3 (1.1-4.8); LYMPHOCYTES % (AUTO) 21.2 % (21-51); MEAN CORPUSCULAR HEMOGLOBIN 28.4 PG (27.0-31.0); MEAN CORPUSCULAR HGB CONC 34.1 g/dL (33.0-36.5); MEAN CORPUSCULAR VOLUME 83.4 FL (78-98); MEAN PLATELET VOLUME 7.1 FL (7.4-10.4); MONOCYTES # (AUTO) 0.6 X10'3 (0-0.9); MONOCYTES % (AUTO) 5.8 % (2-12); NEUTROPHILS # (AUTO) 7.9 X10'3 (1.8-7.7); PLATELET COUNT 197 X10'3 (140-440); RED BLOOD COUNT 4.98 X10'6 (4.70-6.10); RED CELL DISTRIBUTION WIDTH 12.7 % (11.5-14.5); WHITE BLOOD COUNT 11.2 X10'3 (4.5-11.0)
[2018-12-05 07:40] LABS: ALBUMIN 3.4 G/DL (3.4-5.0); BILIRUBIN,DIRECT 0.1 MG/DL (0-0.3); BILIRUBIN,TOTAL 0.3 MG/DL (0.1-1.0); TOTAL PROTEIN 7.1 G/DL (6.4-8.2)
[2018-12-05 07:41] LABS: ALANINE AMINOTRANSFERASE 33 U/L (12-78); ALBUMIN/GLOBULIN RATIO 0.9 (1.1-1.5); ALKALINE PHOSPHATASE 66 IU/L (46-116); ASPARTATE AMINO TRANSFERASE 14 U/L (10-37)
[2018-12-05 07:56] LABS: CARBAMAZEPINE (TEGRETOL) 4.8 UG/ML (4.0-12.0)
[2018-12-05 07:57] VITALS: BP 118/84
[2018-12-05] MEDS: atorvastatin 20mg tablet PO SCH (08:08)
[2018-12-05] MEDS: buprenorphine/naloxone 2-0.5mg sublingual tablet SL SCH ×2 (08:08→20:51)
[2018-12-05] MEDS: lisinopril 20mg tablet PO SCH (08:08)
[2018-12-05] MEDS: clonazePAM 1mg tablet PO SCH (08:08)
--- NOTE | 2018-12-05 17:07 | NUR ---
Nursing Progress Note: Ides Legal hold: VOL Client on voluntary status for DTS Report received from Leigha Grover RN with use of SBAR. Why are they here: Patient was brought into the ED by police on a 5150 hold for grave disability and danger to self. He has a history of schizophrenia. Per admission note, pt was bothering a neighbor, disruptive, saying he was seeing demons, and left all the burners on in his house. He reported insomnia X3 days. Assessment: Patient was asleep at change of shift and up before breakfast. Patient was pleasant today and states he would like to go home. Patient is now a voluntary status. Patient states his parents would help him with his medication at home. Patient chatted and appeared better than last time RN saw patient. Patient slept during both groups. Patient denies SI/HI. Patient also denies audio/visual hallucinations. S/I, H/I: Denies A/VH: Denies Sleep: Several naps today ADL's: Independent Group attendance: No. Were Meds taken: Yes. Any med S/E: None noted or observed Mental Status Exam Appearance: Unshaven, disheveled Eye contact: Direct. Behavior: Cooperative Speech: Normal rate and rhythm. Mood: Anxious Affect: Constricted Thought process: Linear. Thought Content: wants to discharge Cognition: A/Ox4 Insight: Poor Judgment: Poor Interventions PRN's used: Nicotine Therapeutic interventions: 1:1 therapeutic assessment, establishment of rapport, maintained safe therapeutic milieu, provided active listening with positive feedback, provided medication education and monitored for effects, and monitored for change in behavior. Q 15 minute safety checks. Restraints/seclusion/emergency medication: N/A Justification of Continued Inpatient Treatment: Continued therapeutic support and medication management needed to provide stabilization, prevent decompensation, improve coping mechanisms decreasing risk to patient and re-admittance.
[2018-12-05 20:00] VITALS: BP 112/62
[2018-12-05] MEDS: clozapine 100mg tablet PO SCH (20:51)
[2018-12-05] MEDS: clozapine 25mg tablet PO SCH (20:53)
[2018-12-05] MEDS ORDERED: clozapine 25mg tablet PO SCH (21:00)
[2018-12-05] MEDS: carBAMazepine 100mg chewable tablet PO SCH (21:46)
--- NOTE | 2018-12-06 00:01 | NUR ---
Nursing Progress Note: Ides Legal hold: VOL Client on voluntary status for DTS Report received from Maggie GAN with use of SBAR. Why are they here: Patient was brought into the ED by police on a 5150 hold for grave disability and danger to self. He has a history of schizophrenia. Per admission note, pt was bothering a neighbor, disruptive, saying he was seeing demons, and left all the burners on in his house. He reported insomnia X3 days. Assessment: Patient was up at change of shift and watching football. Patient was pleasant today and states he would like to go home. Patient is now a voluntary status. Patient states his parents would help him with his medication at home. Patient chatted and appeared better than last time RN saw patient. Patient denies SI/HI. Patient also denies audio/visual hallucinations. S/I, H/I: Denies A/VH: Denies Sleep: Several naps today ADL's: Independent Group attendance: No. Were Meds taken: Yes. Any med S/E: None noted or observed Mental Status Exam Appearance: Unshaven, disheveled Eye contact: Direct. Behavior: Cooperative Speech: Normal rate and rhythm. Mood: Anxious Affect: Constricted Thought process: Linear. Thought Content: wants to discharge Cognition: A/Ox4 Insight: Poor Judgment: Poor Interventions PRN's used: Nicotine Therapeutic interventions: 1:1 therapeutic assessment, establishment of rapport, maintained safe therapeutic milieu, provided active listening with positive feedback, provided medication education and monitored for effects, and monitored for change in behavior. Q 15 minute safety checks. Restraints/seclusion/emergency medication: N/A Justification of Continued Inpatient Treatment: Continued therapeutic support and medication management needed to provide stabilization, prevent decompensation, improve coping mechanisms decreasing risk to patient and re-admittance.
[2018-12-06 07:21] VITALS: BP 115/65
[2018-12-06] MEDS: clonazePAM 1mg tablet PO SCH (08:59)
[2018-12-06] MEDS: atorvastatin 20mg tablet PO SCH (08:59)
[2018-12-06] MEDS: buprenorphine/naloxone 2-0.5mg sublingual tablet SL SCH ×2 (08:59→20:05)
[2018-12-06] MEDS: lisinopril 20mg tablet PO SCH (09:01)
[2018-12-06] MEDS: NICOTINE POLACRILEX 2 MG LOZENGE BC PRN ×2 (10:44→13:14)
--- NOTE | 2018-12-06 14:33 | NUR ---
Nursing Progress Note: Ides Legal hold: VOL Client on voluntary status for DTS Report received from Elisa THURSTON with use of SBAR. Why are they here: Patient was brought into the ED by police on a 5150 hold for grave disability and danger to self. He has a history of schizophrenia. Per admission note, pt was bothering a neighbor, disruptive, saying he was seeing demons, and left all the burners on in his house. He reported insomnia X3 days. Assessment: Patient was asleep at change of shift and up before breakfast. Patient stated he is feeling tired. Patient said he slept just okay. Patient has not made any bizarre statements. Patient denies SI/HI and denies A/VH. Patient does not go to group therapy but naps. Patient is voluntary and is supposed to go home this week. S/I, H/I: Denies A/VH: Denies Sleep: Several naps today ADL's: Independent Group attendance: No. Were Meds taken: Yes. Any med S/E: None noted or observed Mental Status Exam Appearance: Unshaven, disheveled Eye contact: Direct. Behavior: Cooperative Speech: Normal rate and rhythm. Mood: subdued Affect: Flat Thought process: Linear. Thought Content: wants to discharge Cognition: A/Ox4 Insight: Poor Judgment: Poor Interventions PRN's used: Nicotine lozenges Therapeutic interventions: 1:1 therapeutic assessment, establishment of rapport, maintained safe therapeutic milieu, provided active listening with positive feedback, provided medication education and monitored for effects, and monitored for change in behavior. Q 15 minute safety checks. Restraints/seclusion/emergency medication: N/A Justification of Continued Inpatient Treatment: Continued therapeutic support and medication management needed to provide stabilization, prevent decompensation, improve coping mechanisms decreasing risk to patient and re-admittance.
[2018-12-06] MEDS: clozapine 100mg tablet PO SCH (20:06)
[2018-12-06] MEDS: carBAMazepine 100mg chewable tablet PO SCH (20:06)
[2018-12-06] MEDS: clozapine 25mg tablet PO SCH (20:07)
[2018-12-06 20:10] VITALS: BP 120/80
--- NOTE | 2018-12-06 21:46 | NUR ---
Nursing Progress Note: Ides Legal hold: VOL Client on voluntary status for DTS Report received from Ana Rosa THURSTON with use of SBAR. Why are they here: Patient was brought into the ED by police on a 5150 hold for grave disability and danger to self. He has a history of schizophrenia. Per admission note, pt was bothering a neighbor, disruptive, saying he was seeing demons, and left all the burners on in his house. He reported insomnia X3 days. Assessment: Patient was up and in the kraft at shift change. Patient stated he is feeling tired and slept just okay. Patient has not made any bizarre statements. Patient denies SI/HI and denies A/VH. Patient does not go to group therapy but naps. Patient is voluntary and is supposed to go home this week. S/I, H/I: Denies A/VH: Denies Sleep: Several naps today ADL's: Independent Group attendance: No. Were Meds taken: Yes. Any med S/E: None noted or observed Mental Status Exam Appearance: Unshaven, disheveled Eye contact: Direct. Behavior: Cooperative Speech: Normal rate and rhythm. Mood: subdued Affect: Flat Thought process: Linear. Thought Content: wants to discharge Cognition: A/Ox4 Insight: Poor Judgment: Poor Interventions PRN's used: Nicotine lozenges Therapeutic interventions: 1:1 therapeutic assessment, establishment of rapport, maintained safe therapeutic milieu, provided active listening with positive feedback, provided medication education and monitored for effects, and monitored for change in behavior. Q 15 minute safety checks. Restraints/seclusion/emergency medication: N/A Justification of Continued Inpatient Treatment: Continued therapeutic support and medication management needed to provide stabilization, prevent decompensation, improve coping mechanisms decreasing risk to patient and re-admittance.
[2018-12-07 08:00] VITALS: BP 114/70
[2018-12-07] MEDS: lisinopril 20mg tablet PO SCH (08:09)
[2018-12-07] MEDS: atorvastatin 20mg tablet PO SCH (08:10)
[2018-12-07] MEDS: clonazePAM 1mg tablet PO SCH (08:10)
[2018-12-07] MEDS: buprenorphine/naloxone 2-0.5mg sublingual tablet SL SCH ×2 (08:10→20:20)
[2018-12-07] MEDS: NICOTINE POLACRILEX 2 MG LOZENGE BC PRN ×2 (10:27→16:47)
--- NOTE | 2018-12-07 15:01 | NUR ---
Nursing Progress Note: Ides Legal hold: VOL Client on voluntary status for DTS Report received from Elisa THURSTON with use of SBAR. Why are they here: Patient was brought into the ED by police on a 5150 hold for grave disability and danger to self. He has a history of schizophrenia. Per admission note, pt was bothering a neighbor, disruptive, saying he was seeing demons, and left all the burners on in his house. He reported insomnia X3 days. Assessment: Patient was asleep at change of shift and up before breakfast. Patient is doing well today. Patient has not made any bizarre statements. Patient denies SI/HI and denies A/VH. Patient does not go to group therapy but naps. Patient is voluntary and is supposed to go home this week. Patient appears ready to go home. S/I, H/I: Denies A/VH: Denies Sleep: Several naps today ADL's: Independent Group attendance: No. Were Meds taken: Yes. Any med S/E: None noted or observed Mental Status Exam Appearance: Unshaven, disheveled Eye contact: Direct. Behavior: Cooperative Speech: Normal rate and rhythm. Mood: subdued Affect: Flat Thought process: Linear. Thought Content: wants to discharge Cognition: A/Ox4 Insight: Poor Judgment: Poor Interventions PRN's used: Nicotine lozenges Therapeutic interventions: 1:1 therapeutic assessment, establishment of rapport, maintained safe therapeutic milieu, provided active listening with positive feedback, provided medication education and monitored for effects, and monitored for change in behavior. Q 15 minute safety checks. Restraints/seclusion/emergency medication: N/A Justification of Continued Inpatient Treatment: Continued therapeutic support and medication management needed to provide stabilization, prevent decompensation, improve coping mechanisms decreasing risk to patient and re-admittance.
[2018-12-07] MEDS: LORazepam 1 MG tablet PO PRN (16:47)
[2018-12-07 19:59] VITALS: BP 122/76
[2018-12-07] MEDS: carBAMazepine 100mg chewable tablet PO SCH (20:21)
[2018-12-07] MEDS: clozapine 25mg tablet PO SCH (20:22)
[2018-12-07] MEDS: clozapine 100mg tablet PO SCH (20:22)
--- NOTE | 2018-12-07 23:08 | NUR ---
Nursing Progress Note: Ides Legal hold: VOL Client on voluntary status for DTS Report received from sma THURSTON with use of SBAR. Why are they here: Patient was brought into the ED by police on a 5150 hold for grave disability and danger to self. He has a history of schizophrenia. Per admission note, pt was bothering a neighbor, disruptive, saying he was seeing demons, and left all the burners on in his house. He reported insomnia X3 days. Assessment: Patient was asleep at change of shift . Patient is doing well today. Patient has not made any bizarre statements. Patient denies SI/HI and denies A/VH. Patient does not go to group therapy but naps. Patient is voluntary and is supposed to go home this week. Patient appears ready to go home. S/I, H/I: Denies A/VH: Denies Sleep: Several naps today ADL's: Independent Group attendance: No. Were Meds taken: Yes. Any med S/E: None noted or observed Mental Status Exam Appearance: Unshaven, disheveled Eye contact: Direct. Behavior: Cooperative Speech: Normal rate and rhythm. Mood: subdued Affect: Flat Thought process: Linear. Thought Content: wants to discharge Cognition: A/Ox4 Insight: Poor Judgment: Poor Interventions PRN's used: Nicotine lozenges Therapeutic interventions: 1:1 therapeutic assessment, establishment of rapport, maintained safe therapeutic milieu, provided active listening with positive feedback, provided medication education and monitored for effects, and monitored for change in behavior. Q 15 minute safety checks. Restraints/seclusion/emergency medication: N/A Justification of Continued Inpatient Treatment: Continued therapeutic support and medication management needed to provide stabilization, prevent decompensation, improve coping mechanisms decreasing risk to patient and re-admittance.
[2018-12-08 07:38] VITALS: BP 115/73
[2018-12-08 08:10] VITALS: BP_SYST 115
[2018-12-08] MEDS: lisinopril 20mg tablet PO SCH (08:10)
[2018-12-08] MEDS: clonazePAM 1mg tablet PO SCH (08:10)
[2018-12-08] MEDS: atorvastatin 20mg tablet PO SCH (08:10)
[2018-12-08] MEDS: buprenorphine/naloxone 2-0.5mg sublingual tablet SL SCH (08:10)
--- NOTE | 2018-12-08 12:22 | NUR ---
Reassessment: Pt continues meeting nutrient needs with documented 75-100% PO intake on regular diet. LBM 12/08, small. No nutrition diagnosis at this time. Will continue to follow. Recommendations: 1) Continue regular diet 2) Bowel care PRN 3) Weekly weights Addendum: 12/08/18 at 1222 [address] Amended: Links added.
[2018-12-08] MEDS ORDERED: CLOZ100T13 PO (13:14)
[2018-12-08] MEDS ORDERED: CLOZ25TA12 PO (13:14)
[2018-12-08] MEDS ORDERED: NICO-668 BC (13:14)
--- NOTE | 2018-12-08 14:24 | NUR ---
Nursing Discharge Note Patient is discharged off unit at 1355. He is accompanied by Unit Tech Angelica downstairs where his father is waiting for him and will transport him home. Patient does not appear to be under any acute physical or emotional distress. He is smiling, happy and laughing. Discharge instructions provided in handout and verbally, patient denies any questions. Written prescriptions for clozaril provided to patient. His inventoried possessions were provided back. Community crisis service information and national suicided hotline handout given. Patient sees Dr Cardenas while in the community. Patient has improved since admit and reports that he is feeling well. Nicotine replacement offered and declined, patient plans on smoking cigarettes.
== END 2018-12-08 13:55 | disposition home or self-care (01) | DRG 885 ==
LOC: ADULT MH 20:35
PROVIDERS: ADMIT Psychiatry & Neurology Psychiatry; ATTEND Psychiatry & Neurology Psychiatry
DX: F25.0 Schizoaffective disorder, bipolar type (principal); F11.20 Opioid dependence, uncomplicated; E78.5 Hyperlipidemia, unspecified; F17.210 Nicotine dependence, cigarettes, uncomplicated; F12.90 Cannabis use, unspecified, uncomplicated; Z60.2 Problems related to living alone; I10 Essential (primary) hypertension; Z91.14 Patient's other noncompliance with medication regimen; Z88.1 Allergy status to other antibiotic agents; Z79.899 Other long term (current) drug therapy
CPT/HCPCS: 36415; 80053; 80061; 80076; 80156; 80305; 80320; 83036; 85025; 87081; Z7610

== ENCOUNTER 2020-02-28 12:25 | Emergency (ER) | payer MEDICARE, MEDICAID ==
[~2020-02-28] VITALS: Ht 182.9 cm; Wt 145.4 kg
[~2020-02-28 12:25] MED LIST changes: +CLOZ100T13 PO; +CLOZ25TA12 PO; +NICO-668 BC; -RISP2TAB97 PO
--- NOTE | 2020-02-28 13:00 | NUR ---
pt waiting to see mental health, packet sent
[2020-02-28 13:04] LABS: BASOPHILS # (AUTO) 0.1 X10'3 (0-0.2); BASOPHILS % (AUTO) 0.8 % (0-1); EOSINOPHILS # (AUTO) 0.2 X10'3 (0-0.9); EOSINOPHILS % (AUTO) 1.5 % (0-6); HEMATOCRIT 43.4 % (42.0-52.0); HEMOGLOBIN 14.5 g/dl (14.0-17.9); LYMPHOCYTES % (AUTO) 25.6 % (21-51); MEAN CORPUSCULAR HEMOGLOBIN 27.5 PG (27.0-31.0); MEAN CORPUSCULAR HGB CONC 33.3 g/dL (33.0-36.5); MEAN CORPUSCULAR VOLUME 82.6 FL (78-98); MEAN PLATELET VOLUME 7.9 FL (7.4-10.4); MONOCYTES # (AUTO) 0.6 X10'3 (0-0.9); NEUTROPHILS # (AUTO) 7.9 X10'3 (1.8-7.7); NEUTROPHILS % (AUTO) 67.1 % (42-75); PLATELET COUNT 256 X10'3 (140-440); RED BLOOD COUNT 5.26 X10'6 (4.70-6.10); RED CELL DISTRIBUTION WIDTH 14.6 % (11.5-14.5); WHITE BLOOD COUNT 11.8 X10'3 (4.5-11.0)
[2020-02-28] MEDS ORDERED: ATOR40TA72 PO (13:07)
[2020-02-28] MEDS ORDERED: CLOZ100T31 PO (13:07)
[2020-02-28] MEDS ORDERED: BUPR200T PO (13:13)
[2020-02-28] MEDS ORDERED: CLOZ100T21 PO (13:13)
[2020-02-28] MEDS ORDERED: METF500T PO (13:13)
[2020-02-28] MEDS ORDERED: GLYC1TAB23 PO (13:15)
[2020-02-28 13:21] LABS: ALANINE AMINOTRANSFERASE 86 U/L (12-78); ALBUMIN 4.1 G/DL (3.4-5.0); ALBUMIN/GLOBULIN RATIO 1.1 (1.1-1.5); ALKALINE PHOSPHATASE 120 IU/L (46-116); ANION GAP 11 (8-16); ASPARTATE AMINO TRANSFERASE 38 U/L (10-37); BILIRUBIN,TOTAL 0.4 MG/DL (0.1-1.0); BLOOD UREA NITROGEN 14 MG/DL (7-18); BUN/CREATININE RATIO 18.2 (5.4-32.0); CHLORIDE 102 MMOL/L (99-107); CREATININE 0.77 MG/DL (0.60-1.10); GLUCOSE 150 MG/DL (70-104); POTASSIUM 4.5 MMOL/L (3.5-5.1); SODIUM 137 MMOL/L (135-145); TOTAL CARBON DIOXIDE 24.1 MMOL/L (24-32); TOTAL PROTEIN 7.8 G/DL (6.4-8.2); eGFR > 90 ML/MIN
[2020-02-28 13:26] LABS: CLARITY,URINE CLEAR (Clear); COLOR,URINE YELLOW (Yellow); GLUCOSE, URINE NEGATIVE (Neg); KETONES,URINE NEGATIVE (Neg); LEUKOCYTE ESTERASE ,URINE NEGATIVE (Neg); NITRITES, URINE NEGATIVE (Neg); OCCULT BLOOD,URINE NEGATIVE (Neg); PROTEIN,URINE NEGATIVE (Neg); UROBILINOGEN,URINE 0.2 E.U/dL (0.2-1.0)
[2020-02-28 13:31] LABS: ETHANOL < 0.010 GM/DL (0.0-0.010)
[2020-02-28 13:33] LABS: URINE AMPHETAMINE SCREEN NEGATIVE (Neg); URINE BARBITUATE SCREEN NEGATIVE (Neg); URINE BENZODIAZEPINES SCREEN NEGATIVE (Neg); URINE CANNABINOID SCREEN NEGATIVE (Neg); URINE COCAINE SCREEN NEGATIVE (Neg); URINE METHADONE SCREEN NEGATIVE (Neg); URINE OPIATE SCREEN NEGATIVE (Neg); URINE PHENCYCLIDINE SCREEN NEGATIVE (Neg)
[2020-02-28 13:35] LABS: UA COLLECTION TYPE CLN CATCH MIDSTREAM
--- NOTE | 2020-02-28 14:00 | NUR ---
PT IS SLEEPING. NO CONCERNS AT THIS TIME
--- NOTE | 2020-02-28 15:00 | NUR ---
pt resting in bed
--- NOTE | 2020-02-28 16:00 | NUR ---
pt talking with [facility]
--- NOTE | 2020-02-28 17:00 | NUR ---
PT IS SLEEPING. NO CONCERNS AT THIS TIME
[2020-02-28] MEDS: metFORMIN 500mg tablet PO SCH (17:03)
--- NOTE | 2020-02-28 18:32 | NUR ---
pt waiting for placement
--- NOTE | 2020-02-28 19:19 | NUR ---
pt is resting comfortably in bed. denies any current si/sh/hi/avh. states his suicidal thoughts come and go and right now "I'm comfortable. I'm doing good right now." states his psych medication dosages were recently decreased by Dr. Cardenas and is wondering if that was a contributing factor. pt father Yobani called and was provided update with pt permission. pt then talked with father on phone briefly and appropriately at the nurses station. pt has a withdrawn and depressed affect. pt then returned to bed and is resting comfortably with no complaints. will continue to monitor
[2020-02-28] MEDS: atorvastatin 20mg tablet PO SCH (20:21)
[2020-02-28] MEDS: buprenorphine/naloxone 2-0.5mg sublingual tablet SL SCH (20:21)
[2020-02-28] MEDS: glycopyrrolate 1mg tablet PO SCH (20:21)
[2020-02-28] MEDS: buPROPion SR 100mg tab PO SCH (20:21)
[2020-02-28] MEDS: clozapine 100mg tablet PO SCH (20:41)
--- NOTE | 2020-02-28 23:53 | NUR ---
patient moved over from overflow to ed bed #9 due to staff shortage
[2020-02-29] MEDS: buprenorphine/naloxone 2-0.5mg sublingual tablet SL SCH ×2 (07:48→21:00)
[2020-02-29] MEDS: metFORMIN 500mg tablet PO SCH ×2 (07:48→18:25)
[2020-02-29] MEDS: clonazePAM 1mg tablet PO SCH (07:49)
[2020-02-29] MEDS: lisinopril 20mg tablet PO SCH (07:49)
[2020-02-29] MEDS: buPROPion SR 100mg tab PO SCH ×2 (07:54→21:01)
--- NOTE | 2020-02-29 18:30 | NUR ---
ASSUMED CARE PATIENT COOPERATIVE, AWAITING DINNER VERBALIZED FEELING HUNGRY AND WANTED LARGER GREEN SCRUBS HE WEARS A 4 X, 2 X IS ONLY AVAILABLE.
--- NOTE | 2020-02-29 19:38 | NUR ---
SPOKE WITH [facility] FOR ETA ON TRANFER UPSTAIRS. PLAN FOR AFTER 2100 TONIGHT
[2020-02-29] MEDS: clozapine 100mg tablet PO SCH (21:00)
[2020-02-29] MEDS: atorvastatin 20mg tablet PO SCH (21:01)
[2020-02-29] MEDS: glycopyrrolate 1mg tablet PO SCH (21:01)
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
--- NOTE | 2020-02-29 23:01 | NUR ---
SPOKE WITH [facility] BED DID NOT OPEN UP TONIGHT WILL WAIT FOR DISCHARGES IN THE AM AND UPDATE THAN
--- NOTE | 2020-03-01 01:02 | NUR ---
SUPINE SLEEPING NO APPARENT DISTRESS NOTED
--- NOTE | 2020-03-01 02:09 | NUR ---
LYING LEFT SIDE, EYES CLOSED, RESPIRATIONS EVEN AND UNLABORED
--- NOTE | 2020-03-01 03:00 | NUR ---
eyes closed respiration even and unlabored. no signs of distress
--- NOTE | 2020-03-01 03:57 | NUR ---
sleeping facial muslces relaxed no sign of distress. Respirations even and unlabored. lying on right side.
--- NOTE | 2020-03-01 04:00 | NUR ---
sleeping, respiration even and unlabored laying on left side. no sign of distress.
--- NOTE | 2020-03-01 05:00 | NUR ---
Melissa talking in sleep words in comprehensible. No signs of distress.
--- NOTE | 2020-03-01 05:54 | NUR ---
lying supine, eyes closed.
--- NOTE | 2020-03-01 06:41 | NUR ---
patient asleep.We will monitor.
--- NOTE | 2020-03-01 07:57 | NUR ---
[facility] office called ,[facility] cannot take the patient today or tomorrow,[facility] office will refer patient somewhere else.
[2020-03-01] MEDS: clonazePAM 1mg tablet PO SCH (08:25)
[2020-03-01] MEDS: lisinopril 20mg tablet PO SCH (08:25)
[2020-03-01] MEDS: metFORMIN 500mg tablet PO SCH ×2 (08:25→17:51)
[2020-03-01] MEDS: buprenorphine/naloxone 2-0.5mg sublingual tablet SL SCH ×2 (08:25→20:55)
[2020-03-01] MEDS: buPROPion SR 100mg tab PO SCH ×2 (08:25→20:55)
--- NOTE | 2020-03-01 10:15 | NUR ---
Assumed care of the patient from Sander Garcia RN. Pt is resting on the bed. Pt has no signs of distress noted.
--- NOTE | 2020-03-01 11:15 | NUR ---
Pt has no change in condition, in line of sight of the nurse's station. Continuing to monitor.
--- NOTE | 2020-03-01 11:28 | NUR ---
[phone] [facility]
--- NOTE | 2020-03-01 12:16 | NUR ---
Pt is resting with even and unlabored respirations. Continuing to monitor.
--- NOTE | 2020-03-01 13:00 | NUR ---
Pt given a lunch tray, sitting upright on the bed eating lunch. Pt's fingerstick blood glucose checked - 83 prior to food intake.
--- NOTE | 2020-03-01 14:02 | NUR ---
Pt has no change in condition, in line of sight of the nurse's station. Continuing to monitor.
--- NOTE | 2020-03-01 14:47 | NUR ---
Pt's mother phoned, call transferred to the portable phone so he can speak with her.
--- NOTE | 2020-03-01 15:25 | NUR ---
A staff nurse from intake at [facility] phoned to receive nurse to nurse report so they can prepare the details to present for consideration. She reports they will phone back to inform us if he is accepted and a COVID-19 swab will be needed.
--- NOTE | 2020-03-01 16:20 | NUR ---
Pt has no change in condition, in line of sight of the nurse's station. Continuing to monitor.
--- NOTE | 2020-03-01 17:21 | NUR ---
Pt has no change in condition, in line of sight of the nurse's station. Continuing to monitor. Blood sugar checked, glucophage given.
--- NOTE | 2020-03-01 18:32 | NUR ---
Pt given dinner tray, no complaints at this time.
--- NOTE | 2020-03-01 19:30 | NUR ---
AWAKE FINISHING DINNER, NO COMPLAINTS AT THIS TIME.
--- NOTE | 2020-03-01 20:30 | NUR ---
NO SIGNS OF DISTRESS, EYES OPEN. EYES OPEN
[2020-03-01] MEDS: atorvastatin 20mg tablet PO SCH (20:55)
[2020-03-01] MEDS: glycopyrrolate 1mg tablet PO SCH (20:56)
[2020-03-01] MEDS: clozapine 100mg tablet PO SCH (20:56)
--- NOTE | 2020-03-01 22:30 | NUR ---
LYING ON LEFT SIDE, NO COMPLAINTS OR SIGNS OF DISTRESS.
--- NOTE | 2020-03-01 23:30 | NUR ---
NO COMPLAINTS UP TO BATHROOM AFTER HS MEDICATION, UNEVEN GAIT
--- NOTE | 2020-03-01 23:30 | NUR ---
EVEN UNLABORED RESPIRATIONS.
--- NOTE | 2020-03-01 23:30 | NUR ---
SUPINE POSITION, NO COMPLAINTS AT TH IS TIME
--- NOTE | 2020-03-02 | NUR ---
EYES CLOSED LAYINF SUPINE POSITION, NO SIGNS OF DISTRESS
--- NOTE | 2020-03-02 01:30 | NUR ---
SLEEPING, EVEN AND UNLABORED RESPIRATIONS
--- NOTE | 2020-03-02 02:30 | NUR ---
SLEEPING, NO SIGNS OF DISTRESS.
--- NOTE | 2020-03-02 03:31 | NUR ---
EYES CLOSED LYING ON RIGHT SIDE NO COMPALINTS, EVEN UNLABORED RESPIRATIONS
--- NOTE | 2020-03-02 04:30 | NUR ---
supine, snoring. no signs of distress
[2020-03-02 05:37] VITALS: BP_DIAS 85
--- NOTE | 2020-03-02 05:57 | NUR ---
uneventful night patient slept 6 hours befre awaking for void. no complaints during the night.
--- NOTE | 2020-03-02 06:44 | NUR ---
pt sleeping in no obvious distress.
[2020-03-02 08:02] VITALS: BP_SYST 122
[2020-03-02] MEDS: lisinopril 20mg tablet PO SCH (08:02)
[2020-03-02] MEDS: buPROPion SR 100mg tab PO SCH (08:02)
[2020-03-02] MEDS: clonazePAM 1mg tablet PO SCH (08:02)
[2020-03-02] MEDS: metFORMIN 500mg tablet PO SCH (08:02)
[2020-03-02] MEDS: buprenorphine/naloxone 2-0.5mg sublingual tablet SL SCH (08:42)
--- NOTE | 2020-03-02 10:01 | NUR ---
[facility] called and states they are going to have discharge around 11am. then they will take him upstairs.
--- NOTE | 2020-03-02 11:49 | NUR ---
transport here to take pt to [facility]. discharge instructions discussed. [id number] given to transport and security with her to take pt upstairs. also pt given back all of his locked up items minus the ones that are locked up with registration.
== END 2020-03-02 11:51 | disposition home or self-care (01) ==
LOC: ER 12:25
DX: F31.9 Bipolar disorder, unspecified (principal); R45.851 Suicidal ideations; E78.00 Pure hypercholesterolemia, unspecified; I10 Essential (primary) hypertension; E07.9 Disorder of thyroid, unspecified; F41.9 Anxiety disorder, unspecified; F20.9 Schizophrenia, unspecified; F12.90 Cannabis use, unspecified, uncomplicated; Z98.890 Other specified postprocedural states; Z88.1 Allergy status to other antibiotic agents; Z79.899 Other long term (current) drug therapy
CPT/HCPCS: 36415; 80053; 80305; 80320; 81003; 82948; 84443; 85025; 99285

== ENCOUNTER 2020-10-12 05:11 | Emergency (ER) | payer MEDICARE, MEDICAID ==
[~2020-10-12] VITALS: Ht 182.9 cm; Wt 150.0 kg
[~2020-10-12 05:11] MED LIST changes: -ATOR20TA PO; +ATOR40TA72 PO; +BUPR200T30 PO; -CARB200T PO; -CLOZ100T13 PO; +CLOZ100T31 PO; -CLOZ25TA12 PO; +GLYC1TAB23 PO; -HYDR-3686 PO; -LISI-600 PO; +LISI20TA28 PO; +METF500T PO; -NICO-668 BC; -TEMA15CA PO; +VORT5TAB PO
[2020-10-12 06:01] VITALS: BP 141/83
[2020-10-12] MEDS ORDERED: clindamycin 150mg capsule PO ONE (06:05)
[2020-10-12] MEDS ORDERED: ondansetron 4mg rapidly disintigrating tab PO ONE (06:05)
[2020-10-12] MEDS ORDERED: acetaminophen 325mg tablet PO ONE (06:05)
[2020-10-12] MEDS ORDERED: dexamethasone 4mg/ml inj IM ONE (06:05)
[2020-10-12] MEDS ORDERED: ketorolac trometh inj. 60 MG/2 ML VIAL IM ONE (06:05)
[2020-10-12] MEDS ORDERED: CLIN300C54 PO (06:12)
[2020-10-12] MEDS ORDERED: PRED20TA PO (06:14)
== END 2020-10-12 06:56 | disposition home or self-care (01) ==
LOC: ER 05:12
DX: J02.9 Acute pharyngitis, unspecified (principal); E78.00 Pure hypercholesterolemia, unspecified; I10 Essential (primary) hypertension; F31.9 Bipolar disorder, unspecified; Z88.0 Allergy status to penicillin; Z79.899 Other long term (current) drug therapy
CPT/HCPCS: 96372; 99284; J1100; J1885

== ENCOUNTER 2021-10-07 13:59 | Emergency (ER) | payer MEDICARE, MEDICAID ==
[~2021-10-07] VITALS: Ht 182.9 cm; Wt 126.7 kg
--- NOTE | 2021-10-07 15:17 | NUR ---
Pt's mother's [place] phone number house: [phone] cell: [phone]
[2021-10-07 15:31] LABS: BASOPHILS # (AUTO) 0.1 X10'3 (0-0.2); BASOPHILS % (AUTO) 0.6 % (0-1); EOSINOPHILS % (AUTO) 0.1 % (0-6); HEMATOCRIT 46.4 % (42.0-52.0); HEMOGLOBIN 15.4 g/dl (14.0-17.9); LYMPHOCYTES # (AUTO) 3.9 X10'3 (1.1-4.8); LYMPHOCYTES % (AUTO) 19.9 % (21-51); MEAN CORPUSCULAR HEMOGLOBIN 27.4 PG (27.0-31.0); MEAN CORPUSCULAR HGB CONC 33.2 g/dL (33.0-36.5); MEAN CORPUSCULAR VOLUME 82.4 FL (78-98); MEAN PLATELET VOLUME 8.1 FL (7.4-10.4); MONOCYTES # (AUTO) 1.3 X10'3 (0-0.9); MONOCYTES % (AUTO) 6.4 % (2-12); NEUTROPHILS # (AUTO) 14.5 X10'3 (1.8-7.7); PLATELET COUNT 293 X10'3 (140-440); RED BLOOD COUNT 5.63 X10'6 (4.70-6.10); RED CELL DISTRIBUTION WIDTH 14.6 % (11.5-14.5); WHITE BLOOD COUNT 19.9 X10'3 (4.5-11.0)
[2021-10-07 15:46] LABS: ALANINE AMINOTRANSFERASE 51 U/L (12-78); ALBUMIN 4.8 G/DL (3.4-5.0); ALBUMIN/GLOBULIN RATIO 1.2 (1.1-1.5); ALKALINE PHOSPHATASE 104 IU/L (46-116); ANION GAP 13 (8-16); ASPARTATE AMINO TRANSFERASE 32 U/L (10-37); BILIRUBIN,TOTAL 0.8 MG/DL (0.1-1.0); BLOOD UREA NITROGEN 32 MG/DL (7-18); BUN/CREATININE RATIO 22.4 (5.4-32.0); CALCIUM 9.4 MG/DL (8.5-10.1); CHLORIDE 100 MMOL/L (99-107); CREATININE 1.43 MG/DL (0.60-1.10); GLUCOSE 129 MG/DL (70-104); POTASSIUM 4.6 MMOL/L (3.5-5.1); SODIUM 136 MMOL/L (135-145); TOTAL PROTEIN 8.8 G/DL (6.4-8.2); eGFR 54 ML/MIN
[2021-10-07] MEDS ORDERED: QUET50TA PO ×2 (15:59)
[2021-10-07] MEDS ORDERED: VORT10TA PO (15:59)
[2021-10-07] MEDS ORDERED: HYDR-3686 PO (15:59)
[2021-10-07] MEDS ORDERED: GABA300C PO ×2 (15:59)
[2021-10-07] MEDS ORDERED: [UNRECOGNIZED DRUG - CODE] PO (16:05)
[2021-10-07 16:10] LABS: ETHANOL < 0.010 GM/DL (0.0-0.010)
[2021-10-07] MEDS ORDERED: LISI30TA4 PO (16:11)
--- NOTE | 2021-10-07 16:50 | NUR ---
Patient unable to urinate and spent a lot of time in the BR. Patient came out and asked the RN to cath him. RN spoke to Don Abdul and he gave the okay. RN performed an in and out. RN felt a little resistance at the prostate. Patient tolerated with difficulty. 175 mls out, clear yellow urine.
[2021-10-07 17:05] LABS: CLARITY,URINE SLIGHTLY CLOUDY (Clear); COLOR,URINE YELLOW (Yellow); GLUCOSE, URINE NEGATIVE (Neg); KETONES,URINE 15 mg/dl (Neg); LEUKOCYTE ESTERASE ,URINE NEGATIVE (Neg); NITRITES, URINE NEGATIVE (Neg); OCCULT BLOOD,URINE SMALL (Neg); PROTEIN,URINE 30 mg/dl (Neg); UROBILINOGEN,URINE 0.2 E.U/dL (0.2-1.0)
[2021-10-07 17:15] LABS: UA COLLECTION TYPE STRAIGHT CATH
[2021-10-07 17:16] LABS: HYALINE CASTS >30 /LPF (NEGATIVE)
[2021-10-07 17:17] LABS: SQUAMOUS EPITHELIAL CELL,UR FEW /LPF (FEW)
[2021-10-07 17:18] LABS: RBC,URINE 20-50 /HPF (0-2)
[2021-10-07 17:19] LABS: BACTERIA,URINE 1+ /HPF (Neg)
[2021-10-07 17:20] LABS: MUCUS STRANDS FEW /LPF (Neg); RENAL CELLS, URINE FEW /HPF; TRANSITIONAL EPI CELLS,URINE FEW /HPF; URINE AMPHETAMINE SCREEN POSITIVE (Neg); URINE BARBITUATE SCREEN NEGATIVE (Neg); URINE BENZODIAZEPINES SCREEN NEGATIVE (Neg); URINE CANNABINOID SCREEN POSITIVE (Neg); URINE COCAINE SCREEN NEGATIVE (Neg); URINE METHADONE SCREEN NEGATIVE (Neg); URINE OPIATE SCREEN NEGATIVE (Neg); URINE PHENCYCLIDINE SCREEN NEGATIVE (Neg)
[2021-10-07] MEDS ORDERED: buPROPion SR 100mg tab PO SCH (17:20)
[2021-10-07] MEDS ORDERED: hydrOXYzine 25 MG tablet PO PRN (17:20)
[2021-10-07] MEDS ORDERED: QUEtiapine 25mg tablet PO SCH (17:20)
[2021-10-07] MEDS ORDERED: clonazePAM 1mg tablet PO PRN (17:20)
--- NOTE | 2021-10-07 17:58 | NUR ---
Patient wants to leave, but advised patient that he is on a 179. Patient is not happy. Continue to monitor.
[2021-10-07] MEDS: nicotine 21mg patch - 24 hr TD SCH (18:36)
--- NOTE | 2021-10-07 18:39 | NUR ---
Was one to one with the patient when he abruptly stopped responding verbally. He then began to jerk his arms and legs and yelling out. His eyes were rolled back and he was not able to respond to staff. Dr. Merino at the bedside and orders received. Security also at the bedside.
[2021-10-07] MEDS ORDERED: LORazepam 2 mg/ml vial ONE ×2 (18:41→19:21)
--- NOTE | 2021-10-07 18:45 | NUR ---
The patient given ativan 2mg IM. He was diaphoretic and confused.
[2021-10-07] MEDS ORDERED: levetiracetam inj 1,000 MG in normal saline 100ml IV soln 90 ML IV STA (18:49)
[2021-10-07] MEDS ORDERED: magnesium 2GM in 50ml NS 50 ML IV ONE (18:50)
[2021-10-07] MEDS ORDERED: normal saline 1000ML IV soln IV ONE (18:50)
[2021-10-07] MEDS ORDERED: levetiracetam inj 1,000 MG in normal saline 100ml IV soln 100 ML IV STA (19:02)
--- NOTE | 2021-10-07 19:02 | NUR ---
The patient unable to cooperate with going to CT scan and Dr. Merino made aware and orders received.
[2021-10-07 19:07] LABS: CREATINE KINASE 204 U/L (39-308)
[2021-10-07] MEDS ORDERED: ondansetron 4mg rapidly disintigrating tab PO STA (19:09)
[2021-10-07] MEDS ORDERED: LORazepam 2 mg/ml vial IM ONE (19:20)
--- NOTE | 2021-10-07 19:52 | NUR ---
An additional 2mg of ativan given IM as well as zofran ODT. He had an IV started to his right hand. He was able to go to CT scan and was cooperative with CT staff. Security escorted. He is much more relaxed and he was cooperative.
[2021-10-07] MEDS: buprenorphine/naloxone 2-0.5mg sublingual tablet SL SCH (20:14)
--- NOTE | 2021-10-07 20:35 | NUR ---
The patient is resting comfortably and seizure pads are on the bed.
[2021-10-07] MEDS ORDERED: lisinopril 10 MG tablet PO SCH (21:00)
[2021-10-07] MEDS ORDERED: quetiapine 100mg tablet PO SCH (21:00)
[2021-10-07] MEDS ORDERED: atorvastatin 20mg tablet PO SCH (21:00)
--- NOTE | 2021-10-07 21:28 | NUR ---
The patient is resting on his bed and appears to be sleeping
--- NOTE | 2021-10-07 21:40 | NUR ---
Packet sent to [facility]
--- NOTE | 2021-10-07 23:07 | NUR ---
The patient briefly awake and had some water.
--- NOTE | 2021-10-08 00:19 | NUR ---
The patient is awake and sitting up in bed but sleepy
--- NOTE | 2021-10-08 01:01 | NUR ---
The patient is awake and eating a snack
--- NOTE | 2021-10-08 02:01 | NUR ---
The patient is awake off and on. He is cooperative
--- NOTE | 2021-10-08 03:27 | NUR ---
The patient is sitting up and eating.
[2021-10-08 04:35] VITALS: BP 93/54
--- NOTE | 2021-10-08 05:07 | NUR ---
The patient appears to be sleeping
--- NOTE | 2021-10-08 06:23 | NUR ---
Recvd report from ELVIA Vaughn - Patient lying comfortably in bed. No signs of distress. No needs at this time.
[2021-10-08] MEDS ORDERED: metFORMIN 500mg tablet PO SCH (07:00)
[2021-10-08] MEDS: nicotine 21mg patch - 24 hr TD SCH (07:14)
[2021-10-08] MEDS: buprenorphine/naloxone 2-0.5mg sublingual tablet SL SCH (07:40)
[2021-10-08] MEDS ORDERED: gabapentin 300mg capsule PO SCH ×3 (08:00→12:00)
[2021-10-08] MEDS ORDERED: vortioxetine HBr tablet 5 MG TABLET PO SCH (08:00)
[2021-10-08] MEDS ORDERED: buPROPion 100mg tablet PO SCH (08:00)
--- NOTE | 2021-10-08 08:19 | NUR ---
Met with patient in regards to substance use and to see if patient is interested in treatment options. Patient declined treatment and resources.
--- NOTE | 2021-10-08 08:21 | NUR ---
Patient sitting up in bed eating breakfast.
--- NOTE | 2021-10-08 08:40 | NUR ---
Patient ate 100% of breakfast.
[2021-10-08 09:12] LABS: BASOPHILS # (AUTO) 0.1 X10'3 (0-0.2); BASOPHILS % (AUTO) 0.6 % (0-1); EOSINOPHILS # (AUTO) 0.1 X10'3 (0-0.9); HEMATOCRIT 40.3 % (42.0-52.0); HEMOGLOBIN 13.3 g/dl (14.0-17.9); LYMPHOCYTES # (AUTO) 3.6 X10'3 (1.1-4.8); LYMPHOCYTES % (AUTO) 26.7 % (21-51); MEAN CORPUSCULAR HEMOGLOBIN 27.4 PG (27.0-31.0); MEAN CORPUSCULAR HGB CONC 33.1 g/dL (33.0-36.5); MEAN CORPUSCULAR VOLUME 82.9 FL (78-98); MEAN PLATELET VOLUME 8.1 FL (7.4-10.4); MONOCYTES # (AUTO) 1.1 X10'3 (0-0.9); MONOCYTES % (AUTO) 8.2 % (2-12); NEUTROPHILS # (AUTO) 8.4 X10'3 (1.8-7.7); NEUTROPHILS % (AUTO) 63.5 % (42-75); PLATELET COUNT 211 X10'3 (140-440); RED BLOOD COUNT 4.86 X10'6 (4.70-6.10); RED CELL DISTRIBUTION WIDTH 14.3 % (11.5-14.5); WHITE BLOOD COUNT 13.3 X10'3 (4.5-11.0)
--- NOTE | 2021-10-08 09:20 | NUR ---
[facility] at the bedside completing evaluation.
[2021-10-08 09:24] LABS: ALANINE AMINOTRANSFERASE 43 U/L (12-78); ALBUMIN 3.8 G/DL (3.4-5.0); ALBUMIN/GLOBULIN RATIO 1.1 (1.1-1.5); ALKALINE PHOSPHATASE 84 IU/L (46-116); ANION GAP 11 (8-16); ASPARTATE AMINO TRANSFERASE 25 U/L (10-37); BILIRUBIN,TOTAL 0.5 MG/DL (0.1-1.0); BLOOD UREA NITROGEN 34 MG/DL (7-18); BUN/CREATININE RATIO 24.3 (5.4-32.0); CALCIUM 8.2 MG/DL (8.5-10.1); CHLORIDE 101 MMOL/L (99-107); GLUCOSE 139 MG/DL (70-104); POTASSIUM 4.3 MMOL/L (3.5-5.1); SODIUM 136 MMOL/L (135-145); TOTAL CARBON DIOXIDE 24.2 MMOL/L (24-32); TOTAL PROTEIN 7.3 G/DL (6.4-8.2); eGFR 56 ML/MIN
--- NOTE | 2021-10-08 10:07 | NUR ---
Patient awake, lying comfortably in bed.
[2021-10-24] MEDS ORDERED: ASEN10TA11 SL ×2 (11:53)
[2021-10-24] MEDS ORDERED: gabapentin capsule PO ×2 (11:53)
[2021-10-24] MEDS ORDERED: CLON1TAB12 PO ×2 (11:53)
[2021-10-24] MEDS ORDERED: HYDR-3686 PO ×2 (11:53)
[2021-10-24] MEDS ORDERED: QUET50TA24 PO ×2 (11:53)
[2021-10-24] MEDS ORDERED: BUPR100T15 PO ×2 (11:53)
[2021-10-24] MEDS ORDERED: GABA300C PO ×4 (11:55→11:57)
[2021-10-24] MEDS ORDERED: BUPR100T5 PO ×2 (11:55)
[2021-10-24] MEDS ORDERED: QUET-1 PO ×2 (11:55)
== END 2021-10-08 12:48 | disposition home or self-care (01) ==
LOC: ER 14:00
DX: F31.9 Bipolar disorder, unspecified (principal); Z20.822 Contact with and (suspected) exposure to COVID-19; F25.9 Schizoaffective disorder, unspecified; F15.10 Other stimulant abuse, uncomplicated; I10 Essential (primary) hypertension; E78.00 Pure hypercholesterolemia, unspecified; F12.10 Cannabis abuse, uncomplicated; Z88.1 Allergy status to other antibiotic agents; Z79.899 Other long term (current) drug therapy; Z79.84 Long term (current) use of oral hypoglycemic drugs
CPT/HCPCS: 36415; 70450; 80053; 80305; 80320; 81001; 82550; 84443; 85025; 87811; 96365; 96366; 96368; 99285; C1758; J1953; J2060; J3475; J3490; J7030; 36556

== ENCOUNTER 2021-10-12 00:14 | Emergency (ER) | payer MEDICARE, MEDICAID ==
[~2021-10-12 00:14] MED LIST changes: -CLOZ100T31 PO; +GABA300C PO; -GLYC1TAB23 PO; +HYDR-3686 PO; -LISI20TA28 PO; +LISI30TA4 PO; +QUET50TA PO; +VORT10TA PO; -VORT5TAB PO; +[UNRECOGNIZED DRUG - CODE] PO
== END 2021-10-12 03:07 | disposition left against medical advice (07) ==
LOC: ER 00:15
DX: R10.9 Unspecified abdominal pain (principal); Z53.21 Procedure and treatment not carried out due to patient leaving prior to being seen by health care provider

== ENCOUNTER 2021-10-12 08:52 | Emergency (ER) | payer MEDICARE, MEDICAID ==
[~2021-10-12] VITALS: Ht 182.9 cm; Wt 122.7 kg
[2021-10-12 09:20] VITALS: BP 156/95
[2021-10-12 09:38] LABS: BASOPHILS % (AUTO) 0.3 % (0-1); EOSINOPHILS # (AUTO) 0.2 X10'3 (0-0.9); EOSINOPHILS % (AUTO) 1.6 % (0-6); HEMATOCRIT 40.5 % (42.0-52.0); HEMOGLOBIN 13.5 g/dl (14.0-17.9); LYMPHOCYTES # (AUTO) 4.4 X10'3 (1.1-4.8); LYMPHOCYTES % (AUTO) 34.5 % (21-51); MEAN CORPUSCULAR HEMOGLOBIN 27.9 PG (27.0-31.0); MEAN CORPUSCULAR HGB CONC 33.4 g/dL (33.0-36.5); MEAN CORPUSCULAR VOLUME 83.4 FL (78-98); MONOCYTES # (AUTO) 0.7 X10'3 (0-0.9); MONOCYTES % (AUTO) 5.6 % (2-12); NEUTROPHILS # (AUTO) 7.4 X10'3 (1.8-7.7); PLATELET COUNT 242 X10'3 (140-440); RED BLOOD COUNT 4.85 X10'6 (4.70-6.10); RED CELL DISTRIBUTION WIDTH 13.8 % (11.5-14.5); WHITE BLOOD COUNT 12.8 X10'3 (4.5-11.0)
[2021-10-12 09:44] LABS: ALANINE AMINOTRANSFERASE 82 U/L (12-78); ALBUMIN 4.4 G/DL (3.4-5.0); ALBUMIN/GLOBULIN RATIO 1.2 (1.1-1.5); ALKALINE PHOSPHATASE 92 IU/L (46-116); ANION GAP 11 (8-16); ASPARTATE AMINO TRANSFERASE 110 U/L (10-37); BILIRUBIN,TOTAL 0.7 MG/DL (0.1-1.0); BLOOD UREA NITROGEN 29 MG/DL (7-18); BUN/CREATININE RATIO 30.5 (5.4-32.0); CALCIUM 8.9 MG/DL (8.5-10.1); CHLORIDE 100 MMOL/L (99-107); CREATININE 0.95 MG/DL (0.60-1.10); ETHANOL < 0.010 GM/DL (0.0-0.010); GLUCOSE 117 MG/DL (70-104); POTASSIUM 4.4 MMOL/L (3.5-5.1); SODIUM 135 MMOL/L (135-145); TOTAL CARBON DIOXIDE 24.3 MMOL/L (24-32); TOTAL PROTEIN 8.2 G/DL (6.4-8.2); eGFR 87 ML/MIN
[2021-10-24] MEDS ORDERED: CLON1TAB12 PO ×2 (11:53)
[2021-10-24] MEDS ORDERED: QUET50TA24 PO ×2 (11:53)
[2021-10-24] MEDS ORDERED: ASEN10TA11 SL ×2 (11:53)
[2021-10-24] MEDS ORDERED: BUPR100T15 PO ×2 (11:53)
[2021-10-24] MEDS ORDERED: HYDR-3686 PO ×2 (11:53)
[2021-10-24] MEDS ORDERED: gabapentin capsule PO ×2 (11:53)
[2021-10-24] MEDS ORDERED: QUET-1 PO ×2 (11:55)
[2021-10-24] MEDS ORDERED: BUPR100T5 PO ×2 (11:55)
[2021-10-24] MEDS ORDERED: GABA300C PO ×4 (11:55→11:57)
== END 2021-10-12 10:15 | disposition left against medical advice (07) ==
LOC: ER 08:52
DX: F15.10 Other stimulant abuse, uncomplicated (principal); Z20.822 Contact with and (suspected) exposure to COVID-19; E78.00 Pure hypercholesterolemia, unspecified; I10 Essential (primary) hypertension; F41.9 Anxiety disorder, unspecified; F32.A Depression, unspecified; F20.9 Schizophrenia, unspecified; F12.90 Cannabis use, unspecified, uncomplicated; Z72.89 Other problems related to lifestyle; Z79.899 Other long term (current) drug therapy; Z88.1 Allergy status to other antibiotic agents
CPT/HCPCS: 36415; 80053; 80320; 85025; 87811; 99284

== ENCOUNTER 2021-11-06 23:07 | Emergency (ER) | payer MEDICARE, MEDICAID ==
[~2021-11-06 23:07] MED LIST changes: +ASEN10TA11 SL; +BUPR100T15 PO; +BUPR100T5 PO; -BUPR200T30 PO; -CLON-527 PO; +CLON1TAB12 PO; +QUET-1 PO; -QUET50TA PO; +QUET50TA24 PO; -VORT10TA PO; -[UNRECOGNIZED DRUG - CODE] PO
[2021-11-07] MEDS ORDERED: HYDR25TA4 PO (13:37)
[2021-11-07] MEDS ORDERED: SULF1TAB45 PO (13:37)
[2021-11-07] MEDS ORDERED: QUET200T31 PO (13:37)
[2021-11-07] MEDS ORDERED: BUPR200T2 PO (13:51)
[2021-11-07] MEDS ORDERED: HYDR-3686 PO (13:51)
[2021-11-07] MEDS ORDERED: QUET50TA PO (13:51)
[2021-11-07] MEDS ORDERED: ASEN10TA SL (13:51)
[2021-11-07] MEDS ORDERED: CLON-527 PO (13:51)
[2021-11-07] MEDS ORDERED: GABA-530 PO ×2 (13:51)
== END 2021-11-07 00:16 | disposition left against medical advice (07) ==
LOC: ER 23:09
DX: Z00.8 Encounter for other general examination (principal); Z53.21 Procedure and treatment not carried out due to patient leaving prior to being seen by health care provider